=== PATIENT | male | born 1985 | race Caucasian/White ===

== ENCOUNTER 2022-01-22 14:47 | Outpatient (CLI) | payer OTHER, SELFPAY | END 2022-01-22 14:48 | disposition home or self-care (01) | LOC: SPT 14:53 | PROVIDERS: Visit Provider Podiatrist Foot & Ankle Surgery | DX: Z46.89 Encounter for fitting and adjustment of other specified devices (principal); M72.2 Plantar fascial fibromatosis; M21.41 Flat foot [pes planus] (acquired), right foot; M21.42 Flat foot [pes planus] (acquired), left foot | CPT/HCPCS: 97760; 99203; 99204; L4397 ==

== ENCOUNTER 2022-02-12 20:00 | Outpatient (CLI) | payer OTHER, SELFPAY | END 2022-02-12 20:01 | disposition home or self-care (01) | LOC: SLEEP 02-13 07:42 | PROVIDERS: PCP Family Medicine; Visit Provider Family Medicine | DX: R06.83 Snoring (principal); R53.83 Other fatigue; G47.33 Obstructive sleep apnea (adult) (pediatric) | CPT/HCPCS: 95810 ==

== ENCOUNTER → 2022-03-19 08:23 | Outpatient (BNVA) | payer OTHER, SELFPAY | PROVIDERS: PCP Family Medicine; Visit Provider Podiatrist Foot & Ankle Surgery | DX: M72.2 Plantar fascial fibromatosis (principal); M21.41 Flat foot [pes planus] (acquired), right foot; M21.42 Flat foot [pes planus] (acquired), left foot | CPT/HCPCS: 99213 ==

== ENCOUNTER 2022-03-26 20:00 | Outpatient (CLI) | payer OTHER, SELFPAY | END 2022-03-26 20:01 | disposition home or self-care (01) | LOC: SLEEP 03-27 04:46 | PROVIDERS: PCP Family Medicine; Visit Provider Family Medicine | DX: G47.33 Obstructive sleep apnea (adult) (pediatric) (principal) | CPT/HCPCS: 95811 ==

== ENCOUNTER → 2022-06-18 07:44 | Outpatient (BNVA) | payer OTHER, SELFPAY | PROVIDERS: PCP Family Medicine; Visit Provider Podiatrist Foot & Ankle Surgery | DX: M72.2 Plantar fascial fibromatosis (principal); M21.41 Flat foot [pes planus] (acquired), right foot; M21.42 Flat foot [pes planus] (acquired), left foot | CPT/HCPCS: 99213 ==

== ENCOUNTER 2022-08-23 09:15 | Emergency (ER) | payer OTHER, SELFPAY ==
[2022-08-23 09:30] VITALS: BP 129/89; PULSE 73; RESP 15; O2SAT 97; BMI 31.1
--- NOTE | 2022-08-23 09:44 | XR_ITS ---
WS: [id number] Left elbow, 3 views, 08/23/2022 Clinical Data: Left elbow pain and swelling Comparison: None. Findings: No fractures or dislocations are seen. The radial head is normal. The soft tissues are unremarkable. XR/XR elbow LT min 3V* [id number] Impression: Negative left elbow.
[2022-08-23 09:53] VITALS: BP 137/79; PULSE 69; O2SAT 97
--- NOTE | 2022-08-23 10:15 | US_ITS ---
WS: [id number] Ultrasound of the subcutaneous tissue of the left elbow, 08/23/2022 Clinical Data: tender, swollen Left elbow Comparison: None. Findings: There is subcutaneous fluid present. There is no fluid fluid level. There is no air within the tissue . The fluid is distributed irregularity throughout the subcutaneous tissue. US/US soft tissue/extremity [id number] Impression: Subcutaneous fluid in the left elbow, no abscess is seen.
--- NOTE | 2022-08-23 10:17 | ED_ITS ---
HPI - Extremity Problem General: Chief complaint: Extremity Problem,Nontraumatic Stated complaint: left elbow pain Time Seen by Provider: 08/23/22 09:16 History of Present Illness: Patient is a 37-year-old male comes to the ED with left elbow pain and swelling. Symptoms started last night. Denies any injury or trauma to cause left elbow pain. Patient also denies any overuse in the left elbow recently and denies any sporting activities such as tennis or golf. He rates his pain currently 7 out of 10. He has full range of motion in left elbow but does endorse some pain with range of motion. Associated symptoms: Deny chest pain, fever(s) or rash Review of Systems Const: Denies: fever(s), chills or fatigue Eyes: Denies: change in vision or eye discomfort ENMT: Denies: throat pain, odynophagia, nasal discharge or nasal congestion Card: Denies: chest pain, palpitations, edema, swelling of feet/ankles, dyspnea on exertion or orthopnea Resp: Denies: dyspnea, productive cough or non-productive cough GI: Denies: abdominal pain, nausea, vomiting, diarrhea, constipation or hematochezia : Denies: flank pain, difficulty urinating, dysuria or hematuria Musc: Reports: extremity pain (Left elbow) and extremity swelling (Left elbow); Denies: neck pain or back pain Skin/Breast: Denies: rash or new lesions Neuro: Denies: headache(s), numbness in extremities or weakness in extremities PFS ED PFSH: Medical History (Updated 08/23/22 @ 11:24 by JOSÉ Donato) No pertinent family history Surgical History (Updated 08/23/22 @ 11:24 by JOSÉ Donato) No pertinent past surgical history Social History Smoking and tobacco status: never smoked Physical Exam Const: COMMON NORMALS: no acute distress, patient oriented x3, healthy appearing and alert GENERAL APPEARANCE: cooperative and comfortable HENMT: COMMON NORMALS: normocephalic HEAD & SCALP: normocephalic MOUTH: Normal oral and palatal mucosa present THROAT: posterior oropharynx normal and uvula midline Neck/C-Spine: COMMON NORMALS: supple GENERAL: Yes normal visual inspection Resp: COMMON NORMALS: normal respiratory effort, No retractions, No use of accessory muscles and clear to auscultation bilaterally AUSCULTATION: clear to auscultation bilaterally Cardio: COMMON NORMALS: regular rate, regular rhythm, S1 normal heart sound present, S2 normal heart sound present, No gallops present (Cardio), No clicks present (Cardio), No murmurs present (Cardio) and Peripheral pulses 2+ throughout RATE: regular rate RHYTHM: regular rhythm HEART SOUNDS: S1 normal heart sound present and S2 normal heart sound present PERIPHERAL PULSES: Peripheral pulses 2+ throughout GI: COMMON NORMALS: Normal to inspection, nondistended, normoactive bowel sounds present, Soft to palpation, non-tender and no masses PALPATION: Yes Soft to palpation : COMMON NORMALS: Yes no CVA tenderness BLADDER/KIDNEY EXAM: Yes no CVA tenderness Back/Pelvis: COMMON NORMALS: no CVA tenderness Extremity: NARRATIVE EXTREMITY EXAM: Left elbow?no medial or lateral epicondylitis tenderness. Exam findings suggestive of possible cellulitis. No concern for septic joint at this time. LEFT UPPER EXTREMITY: Yes elbow joint Left elbow: Yes inspection (Swelling and mild erythema), Yes palpation (Tenderness over olecranon process), Yes ROM (Full range of motion) and Yes neurovascular exam (Intact) Neuro: COMMON NORMALS: patient oriented x3 SENSORIUM/ORIENTATION: Yes alert GAIT: Yes Normal gait present Skin: GENERAL SKIN EXAM: dry skin Course Vital Signs: Vital signs: Vital Signs Pulse Rate 69 08/23/22 11:19 Respiratory Rate 15 08/23/22 09:30 Blood Pressure 127/92 08/23/22 11:19 Pulse Oximetry 96 08/23/22 11:19 Oxygen Delivery Me thod Room Air 08/23/22 09:30 MDM - Extremity (Nontraumatic) Medical Decision Making Patient is a 37-year-old male comes to the ED with left elbow pain and swelling. Symptoms started last night. Denies any injury or trauma to cause left elbow pain. Patient also denies any overuse in the left elbow recently and denies any sporting activities such as tennis or golf. He rates his pain currently 7 out of 10. He has full range of motion in left elbow but does endorse some pain with range of motion.Left elbow?full range of motion. No medial or lateral epicondylitis tenderness. Exam findings suggestive of possible cellulitis. No concern for septic joint at this time. Left elbow x-ray was negative. Ultrasound soft tissue of left elbow showed some subcutaneous fluid in left elbow but no abscess seen. Given patient's exam and image findings he was diagnosed with cellulitis. He was given a dose of Toradol here in the ED and it did help with his pain. He was stable for discharge home and sent home with a prescription for an antibiotic. Told to follow-up with his PCP in the next week for reevaluation. Return to ED precautions given. Patient understood and agreed with plan. Lab Data Radiology Impressions Elbow X-Ray 08/23/22 09:44 Impression: Negative left elbow. Soft Tissue Ultrasound 08/23/22 10:15 Impression: Subcutaneous fluid in the left elbow, no abscess is seen. Imaging Data Xray Ortho: I personally reviewed and interpreted this imaging study as follows: My impression: Left elbow x-ray?no acute findings. Discharge Plan Discharge Patient Disposition: Home Clinical Impression: Cellulitis Qualifiers: Site of cellulitis: extremity Site of cellulitis of extremity: upper extremity Laterality: left Qualified Code(s): L03.114 - Cellulitis of left upper limb Condition: Stable Prescriptions: New cephalexin 500 mg capsule 500 mg PO Q6H 7 Days Qty: 28 0RF ibuprofen 800 mg tablet 800 mg PO Q8H PRN (Reason: pain) Qty: 20 0RF No Action cholecalciferol (vitamin D3) 50 mcg (2,000 unit) capsule 50 mcg PO DAILY diclofenac sodium [Arthritis Pain (diclofenac)] 1 % gel 4 g topical QID Rx Instructions: apply to single knee, ankle, foot; for foot includes sole/toes/top of foot ibuprofen [IBU] 800 mg tablet 800 mg PO Q8H lidocaine 5 % ointment 1 applic topical BID methyl salicylate-menthol 15-10 % cream 1 applic topical QID PRN trazodone 100 mg tablet 100 mg PO DAILY (DME) Night Splint See Rx Instructions .Route .MEDSUPPLY Qty: 1 0RF Rx Instructions: As directed (DME) Custom Molded Sport Low Profile Carbon Fiber Orthotics Full Length See Rx Instructions .Route .MEDSUPPLY Qty: 1 0RF Rx Instructions: As directed [facility] Discharge Orders: Discharge ED (Routine); Ordered 08/23/22 Ordered By: Rocco Bunn Referrals: Allyssa Pacheco MD [Primary Care Provider] - Discharge Diet: Regular Discharge Activity: Increase activity as tolerated Patient Instructions: Cellulitis (ED) Activity Restrictions/Additional Instructions: Follow-up with medical provider as directed in the next 5 to 7 days for reevaluation. Take medications as prescribed. Return to the ER or your medical provider if condition worsens. Please read and understand discharge instructions. Thank you for choosing [facility] for your healthcare needs today. Please realize this is an emergency room and that we are providing you with a medical screening exam and this may not be complete and all inclusive of all the testing and or work up that you may need to determine your ailment or severity of your illness. It is very important that you follow up as instructed or that you return to the Emergency Department should you have concerns or if your condition changes or worsens in any way. Coding Level of Care Code ED Osteopathic Resident for Duran Zambrano
[2022-08-23] MEDS: ketorolac 60 mg/2 mL INJ IM (10:20)
[2022-08-23 10:41] VITALS: BP 141/89; O2SAT 95
--- NOTE | 2022-08-23 10:41 | PC.PHAR ---
fax sent to [facility] for med list at 10:30 am
[2022-08-23 11:19] VITALS: BP 127/92; PULSE 69; O2SAT 96
== END 2022-08-23 11:21 | disposition home or self-care (01) ==
PROVIDERS: Emergency Provider Physician Assistant; PCP Family Medicine
DX: L03.114 Cellulitis of left upper limb (principal)
CPT/HCPCS: 73080; 76882; 96372; 99284; J1885

== ENCOUNTER → 2022-12-17 07:32 | Outpatient (BNVA) | payer OTHER, SELFPAY | PROVIDERS: PCP Family Medicine; Visit Provider Podiatrist Foot & Ankle Surgery | DX: M72.2 Plantar fascial fibromatosis (principal); M21.41 Flat foot [pes planus] (acquired), right foot; M21.42 Flat foot [pes planus] (acquired), left foot | CPT/HCPCS: 99213 ==

== ENCOUNTER → 2023-06-17 07:40 | Outpatient (BNVA) | payer OTHER, SELFPAY | PROVIDERS: PCP Family Medicine; Visit Provider Podiatrist Foot & Ankle Surgery | DX: M72.2 Plantar fascial fibromatosis (principal) | CPT/HCPCS: 99213 ==

== ENCOUNTER 2023-06-26 16:29 | Outpatient (CLI) | payer OTHER, SELFPAY ==
--- NOTE | 2023-06-26 16:45 | MR_ITS ---
WS: [id number] MRI RIGHT FOOT WITHOUT CONTRAST. COMPARISON: None Multiplanar, multisequence imaging is performed without contrast. History: RIGHT heel pain for 2 years. Evaluate for Boston's nerve entrapment. MRI is predominant dedicated to the ankle to better evaluate for Boston's nerve entrapment. There is no marrow signal abnormality. No fractures. Tarsometatarsal alignment is normal. No erosions . No significant enthesopathy at the Achilles attachment. No osteochondral lesions at the talar dome. No joint effusion and no loose body. There is no edema or evidence for atrophy or denervation involving the abductor digiti minimi. No berlin ma is identified within the muscles of the foot particularly along the lateral foot involving the dis tribution of the 1st branch of the lateral plantar nerve. There is no evidence for plantar fasciitis. No edema. The visualized Achilles tendon is normal. Normal appearance of the peroneus tendons. There is no muscle atrophy of the foot. No ligament tear. Extensor and flexor tendons are normal. IMPRESSION: 1. Unremarkable MRI RIGHT ankle/foot. There is no marrow edema or fracture. 2. No secondary findings of Boston nerve entrapment. There is no edema or denervation suspected with in the abductor digiti minimi. 3. No fractures.
== END 2023-06-26 16:30 | disposition home or self-care (01) ==
LOC: RAD 16:30
PROVIDERS: PCP Family Medicine; Visit Provider Podiatrist Foot & Ankle Surgery
DX: M72.2 Plantar fascial fibromatosis (principal)
CPT/HCPCS: 73718

== ENCOUNTER → 2023-07-15 07:41 | Outpatient (BNVA) | payer OTHER, SELFPAY | PROVIDERS: PCP Family Medicine; Visit Provider Podiatrist Foot & Ankle Surgery | DX: M72.2 Plantar fascial fibromatosis (principal); M79.671 Pain in right foot; M79.672 Pain in left foot | CPT/HCPCS: 99213 ==

== ENCOUNTER 2023-07-29 20:49 | Emergency (ER) | payer OTHER, SELFPAY ==
--- NOTE | 2023-07-29 20:51 | XRR_ITS ---
PROCEDURE INFORMATION: Exam: XR Left Hand Exam date and time: 07/29/2023 9:02 PM Age: 38 years old Clinical indication: Injury or trauma; Other: Laceration; Left; Index finger TECHNIQUE: Imaging protocol: Radiologic exam of the left hand. Views: 3 or more views. COMPARISON: No relevant prior studies available. FINDINGS: Bones/joints: Normal. Soft tissues: Soft tissue density around the volar aspect of the distal phalanx of the index finger, posttraumatic. XR/XR hand LT min 3V* [id number] IMPRESSION: No acute fracture or dislocation.
[2023-07-29 20:52] VITALS: BP 149/95; PULSE 77; RESP 16; TEMP 36.6; O2SAT 98
--- NOTE | 2023-07-29 21:12 | ED_ITS ---
HPI - Extremity Injury (Upper) General: Stated Complaint: left finger injury Time Seen by Provider: 07/29/23 20:56 Source: patient Mode of arrival: ambulatory Limitations: no limitations History of Present Illness: 38-year-old male states he had cut his l eft index finger while he was playing a fish with a fish knife states he has not been able to get it to stop from bleeding. He is up-to-date on his tetanus denies any pain denies any fevers Associated symptoms: Denies neck pain Review of Systems Const: Denies: fever(s), chills, body aches or change in appetite ENMT: Denies: throat pain or dental pain Card: Denies: chest pain Resp: Denies: dyspnea GI: Denies: abdominal pain, nausea, vomiting or diarrhea Musc: Reports: extremity pain; Denies: neck pain or back pain Skin/Breast: Denies: rash Neuro: Denies: headache(s) PFSH ED 2 PFSH: Medical History No pertinent family history Surgical History No pertinent past surgical history Social History Smoking and tobacco/nicotine status: never used tobacco/nicotine Physical Exam Const: COMMON NORMALS: no acute distress, patient oriented x3 and healthy appearing HENMT: COMMON NORMALS: normocephalic and atraumatic HEAD & SCALP: normocephalic and atraumatic Neck/C-Spine: COMMON NORMALS: full ROM Chest: COMMONS NORMALS: normal inspection of the chest Resp: COMMON NORMALS: normal respiratory effort Cardio: COMMON NORMALS: regular rate RATE: regular rate Extremity: COMMON NORMALS: full ROM NARRATIVE EXTREMITY EXAM: 1 cm long superficial laceration to dist al left index finger Neuro: COMMON NORMALS: patient oriented x3, moves all extremities and no focal motor deficits Psych: COMMON NORMALS: mental status grossly normal, Normal thought process present and cooperative THOUGHT PROCESS: Normal thought process present Skin: COMMON NORMALS: no rashes or lesions noted and no wounds GENERAL SKIN EXAM: no rashes or lesions noted Procedures Laceration Laceration 1: Site: hand Side (If applicable): left Size (cm): 1 Description: linear Depth: simple, single layer Pre-repair: wound explored, irrigated extensively and deep structures intact Skin layer closed with: other (dermabond) Course Vital Signs: Vital signs: Vital Signs Temperature 97.9 F 07/29/23 20:52 Pulse Rate 77 07/29/23 20:52 Respiratory Rate 16 07/29/23 20:52 Blood Pressure 149/95 07/29/23 20:52 Pulse Oximetry 98 07/29/23 20:52 Oxygen Delivery Me thod Room Air 07/29/23 20:52 MDM - Extremity Injury (Upper) Medical Decision Making Patient presents here with a laceration to the index finger did repair the laceration with Dermabond patient's stable for discharge follow-up with PCP return if worsening All radiology interpretation(s) finalized by discharge Discharge Plan Discharge Patient Disposition: Home Clinical Impression: Finger laceration Condition: Stable Prescriptions: No Action cholecalciferol (vitamin D3) 50 mcg (2,000 unit) capsule 50 mcg PO DAILY diclofenac sodium [Arthritis Pain (diclofenac)] 1 % gel 4 g topical QID Rx Instructions: apply to single knee, ankle, foot; for foot includes sole/toes/top of foot ibuprofen [IBU] 800 mg tablet 800 mg PO Q8H lidocaine 5 % ointment 1 applic topical BID methyl salicylate-menthol 15-10 % cream 1 applic topical QID PRN trazodone 100 mg tablet 100 mg PO DAILY (DME) Night Splint See Rx Instructions .Route .MEDSUPPLY Qty: 1 0RF Rx Instructions: As directed (DME) Custom Molded Sport Low Profile Orthotics Full Length See Rx Instructions .Route .MEDSUPPLY Qty: 1 0RF Rx Instructions: As directed [facility] [place] [place] Patients ibuprofen 800 mg tablet 800 mg PO Q8H PRN (Reason: pain) Qty: 20 0RF Discharge Orders: Discharge ED (Routine); Ordered 07/29/23 Ordered By: Mildred Parkinson Referrals: Allyssa Pacheco MD [Primary Care Provider] - Discharge Diet: Advance as tolerated Discharge Activity: Resume usual activity Patient Instructions: Finger Laceration (ED), Skin Adhesive Care (ED) Coding Level of Care Code ED Wardsperson for Duran Zambrano
== END 2023-07-29 21:16 | disposition home or self-care (01) ==
PROVIDERS: Emergency Provider Emergency Medicine; PCP Family Medicine
DX: S61.211A Laceration without foreign body of left index finger without damage to nail, initial encounter (principal); W26.0XXA Contact with knife, initial encounter
CPT/HCPCS: 12001; 73130; 99283

== ENCOUNTER → 2023-09-18 09:30 | Outpatient (BNVA) | payer OTHER, SELFPAY | PROVIDERS: PCP Family Medicine; Visit Provider Podiatrist Foot & Ankle Surgery | DX: M72.2 Plantar fascial fibromatosis (principal); M79.671 Pain in right foot; M79.672 Pain in left foot | CPT/HCPCS: 99213 ==

== ENCOUNTER → 2024-09-30 09:28 | Outpatient (BNVA) | payer OTHER, SELFPAY | PROVIDERS: PCP Family Medicine; Visit Provider Podiatrist Foot & Ankle Surgery | DX: M72.2 Plantar fascial fibromatosis (principal); M79.671 Pain in right foot; M79.672 Pain in left foot | CPT/HCPCS: 99213 ==

== ENCOUNTER 2024-10-23 21:55 | Emergency (ER) | payer OTHER, SELFPAY ==
--- OUTSIDE RECORDS SUMMARY | 2023-12-04 03:40 | XMS_ITS | Encounter Summary ---
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 This section includes the names of all active insurance providers for the patient. Insurance Provider Type of Coverage Plan Name Start of Policy Coverage End of Policy Coverage Group Number Member ID Insurance Provider's Telephone Number Policy Rivera's Name Patient's Relationship to Policy Rivera [facility] 2024 [facility] WNR May 31, 2024 SELECT [id number] TRUMANJOSEPH DE LA CRUZ Faustino PATIENT Selected Encounter This section includes the information on record at [place] for the Encounter. 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 Date/Time Primary/Secondary Diagnosis Diagnosis Name Provider Source Dec 04, 2023 04:29 PM PRIMARY Segmental and somatic dysfunction of cervical region JYOTSNA BLACKMON [facility] [place] [facility] Dec 04, 2023 04:29 PM SECONDARY Cervicalgia JYOTSNA BLACKMON [facility] Dec 04, 2023 04:29 PM SECONDARY Other intervertebral disc degeneration, lumbosacral region JYOTSNA BLACKMON [facility] Dec 04, 2023 04:29 PM SECONDARY Pain in thoracic spine JYOTSNA BLACKMON [facility] Dec 04, 2023 04:29 PM SECONDARY Segmental and somatic dysfunction of lumbar region [place] [place] Dec 04, 2023 04:29 PM SECONDARY Segmental and somatic dysfunction of pelvic region [place] [place] Dec 04, 2023 04:29 PM SECONDARY Segmental and somatic dysfunction of thoracic region JYOTSNA BLACKMON [facility] Plan of Treatment: Future Appointments (+ 6 months) and Future Tests (+/- 45 days) The Plan of Treatment section includes future care activities for the [facility] [place] [facility] This section includes future appointments and future orders which are active, pending or scheduled. Future Appointments This section includes appointments that were scheduled to occur 6 months from the date of the Encounter, up to a maximum of 20 appointments. The data comes from all [place] treatment facilities. Appointment Date/Time Appointment Type Appointme nt Facility Name Dec 11, 2023 01:00 PM AMBULATORY - MEDICINE [facility] Dec 25, 2023 08:40 AM AMBULATORY - MEDICINE [facility] 2024 10:40 AM AMBULATORY - MEDICINE [facility] Jan 20, 2024 09:15 AM AMBULATORY - MEDICINE [place] Jan 21, 2024 08:20 AM AMBULATORY - MEDICINE [facility] Feb 05, 2024 08:40 AM AMBULATORY - MEDICINE [facility] Feb 05, 2024 02:00 PM [facility] Feb 21, 2024 08:30 AM [facility]UL[facility]ORY - [facility]INE [facility] Feb 27, 2024 02:00 PM AMBULATORY - MEDICINE [facility] Mar 11, 2024 06:00 PM AMBULATORY - NONE [place] [facility] Mar 12, 2024 01:40 PM AMBULATORY - MEDICINE [facility] Apr 08, 2024 09:30 AM AMBULATORY - PSYCHIATRY [facility] Apr 23, 2024 08:20 AM AMBULATORY - MEDICINE [facility] May 14, 2024 08:20 AM AMBULATORY - [facility]ICINE [facility] May 28, 2024 02:30 PM AMBULATORY - MEDICINE [facility] Jun 04, 2024 08:20 AM AM[facility]ULATORY - MEDICINE [facility] Jun 04, 2024 03:00 PM AMBUL[facility]ORY - [facility]RY [facility] Active, Pending, and Scheduled Orders This section includes a listing of several types of active, pending, and scheduled orders, including clinic medications orders, diagnostic test orders, procedure orders and consult orders; where the start date of the order is 45 days before the date of the Encounter or 45 days after the date of theEncounter. The data comes from all [place] treatment facilities. Test Date/Time Test Type Test Details Facility Name Oct 23, 2023 12:00 AM Laboratory - Chemi stry Order TESTOSTERONE, TOTAL (PB-MA) GOLD/RED SST SERUM SP [facility] Vital Signs: All taken on the encounter date This section contains inpatient and outpatient Vital Signs collected on the date of the Encounter. Date/Time Temperature Pulse Blood Pressure Respiratory Rate SP02 Pain Height Weight Body Mass Index Source Dec 04, 2023 08:40 AM 98.9 72 133/89 [facility] Social History: Smoking Status (Most current) and Tobacco Use (All prior to encounter date) This section includes the most current, and the historical, smoking and tobacco- related health factors from the [place] facility where the Encounter took place. Current Smoking Status This section includes the most current smoking, or tobacco-related health factor, from the [place] facility where the Encounter took place. Date/Time Current Smoking Status Comment Facil ity Oct 23, 2023 10:00 AM NE-TOBACCO NEVER USED [facility] Tobacco Use History This section includes a history of the smoking, or tobacco-related health factors, that were collected on or before the date of the Encounter. The data comes from the [place] facility where the Encounter took place. Date/Time Smoking Status/Tobacco Use Comment F acility Oct 29, 2022 10:00 AM NE-TOBACCO NEVER USED [facility] Radiology Reports: +/- 30 days of the encounter Radiology Reports For cases when an order for radiology services may have been completed prior to the date of the Encounter, the report list includes the Radiology Reports that were completed up to 30 days before dateof the Encounter. For cases when an order for radiology services may have been completed after the date of the Encounter, the report list also includes the Radiology Reports that were completed up to30 days after date of the Encounter. The data comes from all [place] treatment facilities. Date/Time Radiology Report Provider Source Nov 07, 2023 09:53 AM US ABDOMEN LTD, SI NGLE ORG OR QUADRANT: SHARI SUAZO [id number] -[phone] M Exm Date: NOV 07, 2023@09:53 Req Phys: RENA ERNST Pat Loc: PB-SOHA PACT ECHO PCP (Req'g Lo Img Loc: PB-ULTRASOUND Service: Unknown [facility] [place]EL [id number] (Case [id number] COMPLETE) US ABDOMEN LTD, SINGLE ORG OR APOLONIA(US Detailed) CPT:53080 Reason for Study: Elevated liver enzymes Clinical History: Report Status: Verified Date Reported: NOV 07, 2023 Date Verified: NOV 07, 2023 Turkey Farmer E-Sig:/ES/BELLA DE DIOS Report: Right upper quadrant ultrasound Liver is enlarged measuring approximately 18.6 x 16.6 x 13.2 cm. There appears be fatty infiltration. Tail the pancreas is not adequately visualized. Body and head of the pancreas are essentially unremarkable. No evidence of cholelithiasis involving gallbladder. Common bile duct normal size measuring approximately 3.9 mm. Right kidney essentially unremarkable. Impression: 1. Hepatomegaly with fatty infiltration 2. Tail of the pancreas is not adequately visualized Primary Interpreting Staff: BELLA DE DIOS, RADIOLOGIST (Turkey Farmer) /BELLA Rivas [facility] Encounter Notes: All associated encounter notes This section contains the clinical notes associated to the Encounter. Date/Time Encounter Note(s) Provider Source Dec 04, 2023 04:15 PM CHIROPRACTIC NOTE: LOCAL TITLE: CHIROPRACTIC FOLLOW UP NOTE PB STANDARD TITLE: CHIROPRACTIC NOTE DATE OF NOTE: DEC 04, 2023@16:15 ENTRY DATE: DEC 04, 2023@16:16:02 AUTHOR: JYOTSNA BLACKMON COSIGNER: URGENCY: STATUS: COMPLETED CHIROPRACTIC FOLLOW-UP VISIT Patient's language preference for health information: Welsh Other Communication Methods Needed: SUBJECTIVE: The Goodridge is a 38 year old MALE being seen in the Chiropractic clinic for follow-up visit. 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 Today, the rates his pain level as a 4-6/10. PAST MEDICAL HISTORY: see problem list SOCIO-ECONOMIC HISTORY: Tobacco: No Prior Tobacco Use Status Available Alcohol: <10.0 mg/dL L (10/17/21 07:27) ALLERGIES/ADVERSE REACTIONS: No Allergy Assessment OBJECTIVE: CERVICAL SPINE: MOVEMENT/POSTURE: Upon inspection, observation is unremarkable. PALPATION: Tenderness was present at cervical segments C2 and C5. SEGMENTAL DYFUNCTION: Joint dysfunctions present upon evaluation C spine: C2 and C5. RANGE OF MOTION: AROM of the cervical spine was slightly restricted in all planes of motion. The experience pain with the restricted AROM. LUMBAR/THORACIC SPINE: MOVEMENT/POSTURE: The Goodridge ambulates without issue. SEGMENTAL DYSFUNCTION: Joint dysfunction was noted in the T spine: T2, T8, T10, L spine: L4, and in the right SI joint. PALPATION: The following vertebral spinous processes were tender to palpation: T2, T8, T10, L4, and the right PSIS. RANGE OF MOTION: AROM of the lumbar spine was restricted and painful in all planes of motion. REVIEW OF DIAGNOSTIC IMAGING: No data available ASSESSMENT: Cervical spine, thoracic spine, lumbar spine, and SI joint dysfunction with associated myofascial pain. PLAN: This is the second follow up treatment for the of a planned six treatments. With the gradual improvement, but continued neck and back pain, we will treat The Goodridge once every three weeks for six treatments. Prognosis: Good Today's treatment of the consisted of chiropractic spinal adjustment of the cervical spine (supine), thoracic spine (prone), lumbar spine (side posture), and the pelvis (side posture) using diversified technique. The procedure was well tolerated by the . GOALS: The goals of treatment include: 1) The reduction of symptomatology. 2) Instructing the in home exercises to improve cervical flexibility and strength, core strength, and lower extremity and core flexibility. 3) Helping the to understand the benefits of long-term continuation of the home exercise program and to commit to a lobsterman exercise plan. /adrián/ Jyotsna Blackmon [place] Signed: 12/04/2023 16:28 JYOTSNA BLACKMON
--- OUTSIDE RECORDS SUMMARY | 2023-12-11 08:00 | XMS_ITS | Encounter Summary ---
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 Date/Time Encounter Type Encounter Description Reason Provider Source Dec 11, 2023 01:00 PM THERAPEUTIC EXERCISES PHYSICAL THERAPY ICD-10-CM M25.561 Pain in right knee YUMIKO SEWELL [place] Encounter Template Text not used by [place] Assessments - Encounter Diagnoses This section includes the primary and secondary diagnoses documented for the Encounter. Date/Time Primary/Secondary Diagnosis Diagnosis Name Provider Source Dec 11, 2023 01:42 PM PRIMARY Pain in right knee KAL SEWELL [facility] Plan of Treatment: Future Appointments (+ 6 months) and Future Tests (+/- 45 days) The Plan of Treatment section includes future care activities for the patient from all [facility] treatment[facility]ilities. This section includes future appointments and future orders which are active, pending or scheduled. Future Appointments This section includes appointments that were scheduled to occur 6 months from the date of the Encounter, up to a maximum of 20 appointments. The data comes from all [place] treatment facilities. Appointment Date/Time Appointment Type Appointme nt Facility Name Dec 25, 2023 08:40 AM AMBULATORY - MEDICINE [facility] 2024 10:40 AM AMBULATORY - MEDICINE [facility] Jan 20, 2024 09:15 AM AMBULATORY - MEDICINE [place] [facility] Jan 21, 2024 08:20 AM AMBULATORY - MEDICINE [facility] Feb 05, 2024 08:40 AM AMBULATORY - MEDICINE [facility] Feb 05, 2024 02:00 PM [facility] [place] [facility] Feb 21, 2024 08:30 AM [facility] [facility] [place] [facility] Feb 27, 2024 02:00 PM AMBULATORY - MEDICINE [facility] Mar 11, 2024 06:00 PM AMBULATORY - NONE [place] [facility] Mar 12, 2024 01:40 PM AMBULATORY - MEDICINE [facility] Apr 08, 2024 09:30 AM AMBULATORY - PSYCHIATRY [facility] Apr 23, 2024 08:20 AM AMBULATORY - MEDICINE [facility] May 14, 2024 08:20 AM AMBULATORY - MEDICINE [facility] May 28, 2024 02:30 PM AMBULATORY - MEDICINE [facility] Jun 04, 2024 08:20 AM AMBULATORY - MEDICINE [facility] Jun 04, 2024 03:00 PM [facility]RY [facility] Social History: Smoking Status (Most current) and Tobacco Use (All prior to encounter date) This section includes the most current, and the historical, smoking and tobacco- related health factors from the [place] facility where the Encounter took place. Current Smoking Status This section includes the most current smoking, or tobacco-related health factor, from the [place] facility where the Encounter took place. Date/Time Current Smoking Status Comment [place] ity Oct 23, 2023 10:00 AM VA-TOBACCO NEVER USED [facility] Tobacco Use History This section includes a history of the smoking, or tobacco-related health factors, that were collected on or before the date of the Encounter. The data comes from the [place] facility where the Encounter took place. Date/Time Smoking Status/Tobacco Use Comment F acility Oct 29, 2022 10:00 AM VA-TOBACCO NEVER USED [facility] Encounter Notes: All associated encounter notes This section contains the clinical notes associated to the Encounter. Date/Time Encounter Note(s) Provider Source Dec 11, 2023 12:57 PM PHYSICAL THERAPY C ONSULT: LOCAL TITLE: PHYSICAL THERAPY CONSULTS PB STANDARD TITLE: PHYSICAL THERAPY CONSULT DATE OF NOTE: DEC 11, 2023@12:57 ENTRY DATE: DEC 11, 2023@12:57:43 AUTHOR: KAL SEWELL COSIGNER: URGENCY: STATUS: COMPLETED Diagnosis: Pain in right Knee Subjective Patient presents with right knee pain. Noted history of right ACL repair in 2007. He also report a right meniscectomy last year. Since his last knee surgery he reports that he reports fell down a flight of stairs reinjuring his knee. 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 Patient's chief complaint is right knee pain Pain rated currently as 2/10; At worst 6/10; At best 2/10 Location of pain is right knee Discomfort is described as dull and sharp Symptoms increase with ascending/descending stairs, standing and decrease with Tylenol, topical ointments Patient's goal is to get a knee brace Patient demonstrates good potential to reach goal Objective Lower Extremity Functional scale score 63% Examination Posture: Patient demonstrates Gait: right antalgic gait pattern Edema: -Midpatellar: 17 -6 above Midpatellar 22 -6 below Midpatellar 18 Upon palpation the patient tenderness is noted in distal quadriceps The following active ROM observed in degrees Knee extension Left WFL Right 0 Knee flexion Left WFL Right 110 The following manual muscle tests on scale of 5 hip abduction Left 5/5 Right 4/5 hip adduction Left 5/5 Right 4/5 hip flexion Left 5/5 Right 4/5 knee flexion Left 5/5 Right 4/5 knee extension Left 5/5 Right 4+/5 dorsiflexion Left 5/5 Right 5/5 Short sitting position used with knee flexion and hip adduction/abduction manual muscle tests. Special tests: Valgus stress: negative Varus stress: negative Anterior drawer: negative Posterior drawer: negative Alpesh's: negative Patellar grind: positive Patient Education: Patient was educated on precautions, expected outcomes, and a home exercise program. Sabinal goals were established and patient consents to the plan of care. Consult place to prosthetics for Right Functional ACL Knee Brace - Regular Contact [facility]: [phone] Home exercise program: Assisted heel slide 10x SLR 10x Prone hip extension 10x side lying hip abduction 10x side lying hip adduction 10x Assessment Patient presents with the above findings and is a good candidate for physical therapy services. The patient was instructed in a home program (demo and visual aide) and demonstrated understanding. The patient would benefit from skilled Physical Therapy to address pain, soft tissue mobility, lower extremity strength, lower extremity range of motion, functional mobility deficits, and ADls. Complexity is low with stable presentation. Plan Short term goals to be achieved in 3 weeks: 1) Patient will be (I) with home exercise. 2) Patient will decrease pain complaints by 25% or more within to improve ADL performance. 3) Patient will increase lower extremity strength by 1/2 grade or more overall within in order to decrease pain and improve ADLs. technician terminal and repeater goals to be achieved in 6 weeks: 1) Patient will have WNL bilateral knee ROM to decrease pain and improve functional mobility. 2) Patient will increase lower Extremity strength by +1 Manual Muscle Grade or more overall within 3 weeks. 3) Patient will be increase his lower Extremity Functional scale score to 71% for improved lower extremity function. (MCID 9 points) Treatment Plan: Physical Therapy plan of care: 1 follow-up appointment in 6 weeks. Physical therapy may include: Patient education, therapeutic exercise, therapeutic activities, manual therapy, neuromuscular reeducation, and modalities as indicated. Total Treatment Time: 30 minutes Therapeutic exercises: 10 minutes Visit 1 of 2 /adrián/ Kal Sewell PT, DPT Gerard Barnard [facility] Signed: 12/11/2023 13:43 [facility]LL [facility]
--- OUTSIDE RECORDS SUMMARY | 2023-12-25 03:40 | XMS_ITS | Encounter Summary ---
Author Name [facility] [place] [facility] [place] Address [address] [place] [address] Care Team Providers Care Dinker Name Role Phone YOMAIRA MULLEN Primary Care [...] Rivera's Name Patient's Relationship to Policy Rivera [facility] 2024 [facility] WNR May 31, 2024 [facility] [id number] [phone] TRUMANJOSEPH DE LA CRUZ Faustino PATIENT Selected Encounter This section includes the information on record at [place] for the Encounter. 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 Date/Time Primary/Secondary Diagnosis Diagnosis Name Provider Source Dec 25, 2023 09:02 AM PRIMARY Segmental and somatic dysfunction of cervical region JYOTSNA ROMANO DOWNEYFred [facility] Dec 25, 2023 09:02 AM SECONDARY Cervicalgia [place]NA ROMANOS [facility] Dec 25, 2023 09:02 AM SECONDARY Other intervertebral disc degeneration, lumbosacral region [place]ANO [facility] Dec 25, 2023 09:02 AM SECONDARY Pain in thoracic spine JYOTSNA ROMANO [facility] [place] Dec 25, 2023 09:02 AM SECONDARY Segmental and somatic dysfunction of lumbar region J[facility] ROMANO [facility] Dec 25, 2023 09:02 AM SECONDARY Segmental and somatic dysfunction of pelvic region JYOTSNA ROMANO [place] [facility] Dec 25, 2023 09:02 AM SECONDARY Segmental and somatic dysfunction of thoracic region JYOTSNA ROMANO [facility] Plan of Treatment: Future Appointments (+ 6 months) and Future Tests (+/- 45 days) The Plan of Treatment section includes future care activities for the patient from all [place] [facility]. This section includes future appointments and future orders which are active, pending or scheduled. Future Appointments This section includes appointments that were scheduled to occur 6 months from the date of the Encounter, up to a maximum of 20 appointments. The data comes from all [place] treatment facilities. Appointment Date/Time Appointment Type Appointme nt Facility Name 2024 10:40 AM AMBULATORY - MEDICINE [facility] Jan 20, 2024 09:15 AM [facility]ATORY - [place]ICINE [place] [facility] Jan 21, 2024 08:20 AM AMBULATORY - MEDICINE [facility] Feb 05, 2024 08:40 AM AMBULATORY - MEDICINE [facility] Feb 05, 2024 02:00 PM AMBULATORY - MEDICINE [facility] Feb 21, 2024 08:30 AM AMBULATORY - MEDICINE [facility] Feb 27, 2024 02:00 PM AMBULATORY - MEDICINE [facility] Mar 11, 2024 06:00 PM AMBULATORY - NONE [place] [facility] Mar 12, 2024 01:40 PM AMBULATORY - MEDICINE [facility] Apr 08, 2024 09:30 AM [facility] - [facility] Apr 23, 2024 08:20 AM AMBULATORY - MEDICINE [facility] May 14, 2024 08:20 AM AMBULATORY - MEDICINE [facility] May 28, 2024 02:30 PM AMBULATORY - MEDICINE [facility] Jun 04, 2024 08:20 AM [facility] Jun 04, 2024 03:00 PM [facility] - [facility]CHIATRY [facility] Lab Results: +/- 30 days of the encounter This section includes the Chemistry and Hematology Lab Results on record with VA for the patient. Radiology Reports and Pathology Reports are provided separately, in subsequent sections. Lab Results This section contains the Chemistry/Hematology Results that were resulted 30 days before or 30 daysafter the date of the Encounter. Date/Time Source Result Type Result - Unit Interpretation Reference Range Specimen Type Comment Jan 21, 2024 08:19 AM [facility] TESTOSTERONE, TOTAL (PB-[place]) SERUM Specimen Ty pe: SERUM No comment entered. Ordering Provider: RENA ERNST Report Released Date/Time: Jan 21, 2024 08:19 AM Reporting Lab: [place] [facility] [address] [place] [id number] Performing Lab: [place] [facility] [address] [place] [id number] TESTOSTERONE, TOTAL (PB-MA) 346.0 ng/dL 221.0-871.0 Vital Signs: All taken on the encounter date This section contains inpatient and outpatient Vital Signs collected on the date of the Encounter. Date/Time Temperature Pulse Blood Pressure Respiratory Rate SP02 Pain Height Weight Body Mass Index Source Dec 25, 2023 08:40 AM 98.2 81 135/85 [facility] Social History: Smoking Status (Most current) and Tobacco Use (All prior to encounter date) This section includes the most current, and the historical, smoking and tobacco- related health factors from the [place] facility where the Encounter took place. Current Smoking Status This section includes the most current smoking, or tobacco-related health factor, from the [place] facility where the Encounter took place. Date/Time Current Smoking Status Comment Facil ity Oct 23, 2023 10:00 AM [place]-TOBACCO NEVER USED [facility] Tobacco Use History This section includes a history of the smoking, or tobacco-related health factors, that were collected on or before the date of the Encounter. The data comes from the [place] facility where the Encounter took place. Date/Time Smoking Status/Tobacco Use Comment F acility Oct 29, 2022 10:00 AM [place]-TOBACCO NEVER USED [facility] Encounter Notes: All associated encounter notes This section contains the clinical notes associated to the Encounter. Date/Time Encounter Note(s) Provider Source Dec 25, 2023 08:54 AM CHIROPRACTIC NOTE: LOCAL TITLE: CHIROPRACTIC FOLLOW UP NOTE PB STANDARD TITLE: CHIROPRACTIC NOTE DATE OF NOTE: DEC 25, 2023@08:54 ENTRY DATE: DEC 25, 2023@08:54:55 AUTHOR: JYOTSNA ROMANO COSIGNER: URGENCY: STATUS: COMPLETED CHIROPRACTIC FOLLOW-UP VISIT Patient's language preference for health information: Danish Other Communication Methods Needed: SUBJECTIVE: The [place] is a 38 year old MALE being seen in the Chiropractic clinic for follow-up visit. The describes his neck and back as feeling similar to past appointments, with tension and tight through out. He states he has a new right knee brace, but is limping. Today, the rates his pain level as a 4/10. PAST MEDICAL HISTORY: see problem list SOCIO-ECONOMIC [...] the restricted AROM. LUMBAR/THORACIC SPINE: MOVEMENT/POSTURE: The [place] ambulates without issue. SEGMENTAL DYSFUNCTION: Joint dysfunction [...] associated myofascial pain. PLAN: This is the third follow up treatment for the of a planned six treatments. With the gradual improvement, but continued neck and back pain, we will treat The [place] once every three weeks for six treatments. [...] exercise program and to commit to a terminal gauger supervisor exercise plan. /adrián/ DARRYL [facility] Signed: 12/25/2023 09:01 JYOTSNA ROMANO
--- OUTSIDE RECORDS SUMMARY | 2024-01-14 05:40 | XMS_ITS | Encounter Summary ---
Author Name [facility] [place] Organization [facility] [place] Address [address] [place] [address] Care Team Providers Care Transformer Coil Winder Name Role Phone YOMAIRA MULLEN Primary Care [...] Rivera's Name Patient's Relationship to Policy Rivera [facility] 2024 [facility] WNR May 31, 2024 [facility] [id number] [phone] TRUMANJOSEPH DE LA CRUZ Faustino PATIENT Selected Encounter This section includes the information on record at [place] for the Encounter. 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 Date/Time Primary/Secondary Diagnosis Diagnosis Name Provider Source 2024 10:46 AM PRIMARY Segmental and somatic dysfunction of cervical region JYOTSNA ROMANO PENSACOLAFred [facility] 2024 10:46 AM SECONDARY Cervicalgia J[facility]NA [facility]ANO [facility] 2024 10:46 AM SECONDARY Other intervertebral disc degeneration, lumbosacral region [facility]ANO [facility] 2024 10:46 AM SECONDARY Pain in thoracic spine J[facility]ANO [facility] 2024 10:46 AM SECONDARY Segmental and somatic dysfunction of lumbar region [facility]AN[facility] 2024 10:46 AM SECONDARY Segmental and somatic dysfunction of pelvic region [facility] 2024 10:46 AM SECONDARY Segmental and somatic dysfunction of thoracic region JYOTSNA ROMANO [facility] Plan of Treatment: Future Appointments (+ 6 months) and Future Tests (+/- 45 days) The Plan of Treatment section includes future care activities for the patient [facility] [place] [facility] This section includes future appointments and future orders which are active, pending or scheduled. Future Appointments This section includes appointments that were scheduled to occur 6 months from the date of the Encounter, up to a maximum of 20 appointments. The data comes from all [place] treatment facilities. Appointment Date/Time Appointment Type Appointme nt Facility Name Jan 20, 2024 09:15 AM AMBULATORY - MEDICINE [place] [facility] Jan 21, 2024 08:20 AM AMBULATORY - MEDICINE [facility] Feb 05, 2024 08:40 AM AMBULATORY - MEDICINE [facility] Feb 05, 2024 02:00 PM AMBULATORY - MEDICINE [facility] Feb 21, 2024 08:30 AM AMBULATORY - MEDICINE [facility] Feb 27, 2024 02:00 PM AMBULATORY - MEDICINE [facility] Mar 11, 2024 06:00 PM AMBULATORY - NONE [place] [facility] Mar 12, 2024 01:40 PM AMBULATORY - MEDICINE [facility] Apr 08, 2024 09:30 AM [facility]ORY - PS[facility]IATRY [facility] Apr 23, 2024 08:20 AM [facility] [place]IC[place] [facility] May 14, 2024 08:20 AM AMBULATORY - MEDICINE [facility] May 28, 2024 02:30 PM AMBULATORY - MEDICINE [facility] Jun 04, 2024 08:20 AM AMBULATORY - MEDICINE [facility] Jun 04, 2024 03:00 PM [facility] Jun 25, 2024 09:20 AM AMBULATORY - MEDICINE [facility] Lab Results: +/- 30 days of the [...] Type Comment Jan 21, 2024 08:19 AM [facility] TESTOSTERONE, TOTAL (PB-[place]) SERUM Specimen Ty pe: SERUM No comment entered. Ordering Provider: RENA ERNST Report Released Date/Time: Jan 21, 2024 08:19 AM Reporting Lab: [place] [facility] [address] [place] [address] Performing Lab: [place] [facility] [address] [place] [address] TESTOSTERONE, TOTAL (PB-MA) 346.0 ng/dL 221.0-871.0 Vital Signs: All taken on the encounter date This section contains inpatient and outpatient Vital Signs collected on the date of the Encounter. Date/Time Temperature Pulse Blood Pressure Respiratory Rate SP02 Pain Height Weight Body Mass Index Source 2024 10:40 AM 98.3 73 133/84 [facility] Social History: Smoking Status (Most current) and Tobacco Use (All prior to encounter date) This section includes the most current, and the historical, smoking and tobacco- related health factors from the [place] facility where the Encounter took place. Current Smoking Status This section includes the most current smoking, or tobacco-related health factor, from the [place] facility where the Encounter took place. Date/Time Current Smoking Status Comment Facil ity Oct 23, 2023 10:00 AM [place]-TOBACCO NEVER USED [facility] Tobacco Use History This section includes a history of the smoking, or tobacco-related health factors, that were collected on or before the date of the Encounter. The data comes from the [place] facility where the Encounter took place. Date/Time Smoking Status/Tobacco Use Comment F acility Oct 29, 2022 10:00 AM [place]-TOBACCO NEVER USED [facility] Encounter Notes: All associated encounter notes This section contains the clinical notes associated to the Encounter. Date/Time Encounter Note(s) Provider Source 2024 10:38 AM CHIROPRACTIC NOTE: LOCAL TITLE: CHIROPRACTIC FOLLOW UP NOTE PB STANDARD TITLE: CHIROPRACTIC NOTE DATE OF NOTE: 2024@10:38 ENTRY DATE: 2024@10:38:46 AUTHOR: JYOTSNA ROMANO COSIGNER: URGENCY: STATUS: COMPLETED CHIROPRACTIC FOLLOW-UP VISIT Patient's language preference for health information: Korean Other Communication Methods Needed: SUBJECTIVE: The [place] is a 38 year old MALE being seen in the Chiropractic clinic for follow-up visit. The states his neck and back have felt worse for the past week with a sharp throbbing pain. Today, the rates his pain level as a 5/10. PAST MEDICAL HISTORY: see problem list SOCIO-ECONOMIC [...] restricted in all planes of motion. The [place] experience pain with the restricted AROM. LUMBAR/THORACIC SPINE: MOVEMENT/POSTURE: The [place] ambulates without issue. SEGMENTAL DYSFUNCTION: Joint dysfunction [...] associated myofascial pain. PLAN: This is the fourth follow up treatment for the of a planned six treatments. With the gradual improvement, but continued neck and back pain, we will treat The [place] once every three weeks for six treatments. [...] exercise program and to commit to a medical terminologist exercise plan. /adrián/ DARRYL [facility] Signed: 2024 10:45 JYOTSNA ROMANO
--- OUTSIDE RECORDS SUMMARY | 2024-02-05 03:40 | XMS_ITS | Encounter Summary ---
Author Name [facility] [place] Organization [facility] [place] Address [address] [place] [address] Care Team Providers Care Crane Engineer Name Role Phone YOMAIRA MULLEN Primary Care [...] Rivera's Name Patient's Relationship to Policy Rivera [facility] 2024 [facility] WNR May 31, 2024 [facility] [id number] [phone] TRUMANJOSEPH DE LA CRUZ Faustino PATIENT Selected Encounter This section includes the information on record at [place] for the Encounter. 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 Date/Time Primary/Secondary Diagnosis Diagnosis Name Provider Source Feb 05, 2024 08:53 AM PRIMARY Segmental and somatic dysfunction of cervical region JYOTSNA ROMANO CISNEFred [facility] Feb 05, 2024 08:53 AM SECONDARY Cervicalgia J[facility]ANO [facility] Feb 05, 2024 08:53 AM SECONDARY Intvrt disc disorders w radiculopathy, lumbosacral region J[facility]SNA ROMANO [facility] Feb 05, 2024 08:53 AM SECONDARY Pain in thoracic spine J[facility]SNA [facility]AN[facility] Feb 05, 2024 08:53 AM SECONDARY Segmental and somatic dysfunction of lumbar region [facility]AN[facility] Feb 05, 2024 08:53 AM SECONDARY Segmental and somatic dysfunction of pelvic region [facility]AN[facility] Feb 05, 2024 08:53 AM SECONDARY Segmental and somatic dysfunction of thoracic region JYOTSNA ROMANO [facility] Plan of Treatment: Future Appointments (+ 6 months) and Future Tests (+/- 45 days) The Plan of Treatment section includes future care activities for the patient from all [place] treatmentfacilities. This section includes future appointments and future orders which are active, pending or scheduled. Future Appointments This section includes appointments that were scheduled to occur 6 months from the date of the Encounter, up to a maximum of 20 appointments. The data comes from all [place] treatment facilities. Appointment Date/Time Appointment Type Appointme nt Facility Name Feb 21, 2024 08:30 AM AMBULATORY - MEDICINE [facility] Feb 27, 2024 02:00 PM AMBULATORY - MEDICINE [facility] Mar 11, 2024 06:00 PM AMBULATORY - NONE [place] [facility] Mar 12, 2024 01:40 PM AMBULATORY - MEDICINE [facility] Apr 08, 2024 09:30 AM AMBULATORY - PS[facility]CHIATRY [facility] Apr 23, 2024 08:20 AM AMBULATORY - MEDICINE [facility] May 14, 2024 08:20 AM AMBULATORY - MEDICINE [facility] May 28, 2024 02:30 PM AMBULATORY - MEDICINE [facility] Jun 04, 2024 08:20 AM AMBULATORY - MEDICINE [facility] Jun 04, 2024 03:00 PM AMBULATORY - PS[facility]CHIATRY [facility] Jun 25, 2024 09:20 AM AMBULATORY - MEDICINE [facility] Jul 15, 2024 01:00 PM AMBULATORY - MEDICINE [facility] Jul 30, 2024 09:00 AM AMBULATORY - MEDICINE [place] [facility] Lab Results: +/- 30 days of the encounter This section includes the Chemistry and Hematology Lab Results on record with [place] for the patient. Radiology Reports and Pathology Reports are provided separately, in subsequent sections. Lab Results This section contains the Chemistry/Hematology Results that were resulted 30 days before or 30 daysafter the date of the Encounter. Date/Time Source Result Type Result - Unit Interpretation Reference Range Specimen Type Comment Jan 21, 2024 08:19 AM [facility] TESTOSTERONE, TOTAL (PB-[place]) SERUM Specimen Ty pe: SERUM No comment entered. Ordering Provider: RENA ERNST Report Released Date/Time: Jan 21, 2024 08:19 AM Reporting Lab: [place] [facility] [address] [place] [facility] [id number] Performing Lab: [place] [facility] [address] [facility] [id number] TESTOSTERONE, TOTAL (PB-[place]) 346.0 ng/dL 221.0-871.0 Vital Signs: All taken on the encounter date This section contains inpatient and outpatient Vital Signs collected on the date of the Encounter. Date/Time Temperature Pulse Blood Pressure Respiratory Rate SP02 Pain Height Weight Body Mass Index Source Feb 05, 2024 08:40 AM 98.1 72 141/94 [facility] Social History: Smoking Status (Most current) and Tobacco Use (All prior to encounter date) This section includes the most current, and the historical, smoking and tobacco- related health factors from the [place] facility where the Encounter took place. Current Smoking Status This section includes the most current smoking, or tobacco-related health factor, from the [place] facility where the Encounter took place. Date/Time Current Smoking Status Comment Rosetta rollins Oct 23, 2023 10:00 AM [place]-TOBACCO NEVER USED [facility] Tobacco Use History This section includes a history of the smoking, or tobacco-related health factors, that were collected on or before the date of the Encounter. The data comes from the [place] facility where the Encounter took place. Date/Time Smoking Status/Tobacco Use Comment F vincenzo Oct 29, 2022 10:00 AM [place]-TOBACCO NEVER USED [facility] Encounter Notes: All associated encounter notes This section contains the clinical notes associated to the Encounter. Date/Time Encounter Note(s) Provider Source Feb 05, 2024 08:41 AM CHIROPRACTIC NOTE: LOCAL TITLE: CHIROPRACTIC FOLLOW UP NOTE PB STANDARD TITLE: CHIROPRACTIC NOTE DATE OF NOTE: FEB 05, 2024@08:41 ENTRY DATE: FEB 05, 2024@08:41:36 AUTHOR: JYOTSNA ROMANO COSIGNER: URGENCY: STATUS: COMPLETED CHIROPRACTIC FOLLOW-UP VISIT Patient's language preference for health information: Kinyarwanda Other Communication Methods Needed: SUBJECTIVE: The [place] is a 39 year old MALE being seen in the Chiropractic clinic for follow-up visit. The [place] describes his back and hips as very painful, like I've been hit by a truck . He does not recall any aggravating event. Today, the rates his pain level as a 6/10. PAST MEDICAL HISTORY: see problem list SOCIO-ECONOMIC [...] restricted in all planes of motion. The [place] experience pain with the restricted AROM. LUMBAR/THORACIC SPINE: MOVEMENT/POSTURE: The ambulates without issue. SEGMENTAL DYSFUNCTION: Joint dysfunction [...] associated myofascial pain. PLAN: This is the fifth follow up treatment for the of a planned six treatments. With the gradual improvement, but continued neck and back pain, we will treat The once every three weeks for six treatments. [...] exercise program and to commit to a skilled nursing exercise plan. /adrián/ DARRYL Bhandari [facility] Signed: 02/05/2024 08:52 JYOTSNA ROMANO
--- OUTSIDE RECORDS SUMMARY | 2024-02-05 09:00 | XMS_ITS | Encounter Summary ---
Author Name [facility] Address [address] [place] [address] Care Team Providers Care Pathology Tech Name Role Phone YOMAIRA MULLEN Primary Care [...] Rivera's Name Patient's Relationship to Policy Rivera [facility] 2024 [facility] May 31, 2024 [facility] [id number] [facility] Faustino PATIENT Selected Encounter This section includes the information on record at [facility] for the Encounter. Date/Time Encounter Type Encounter Description Reason Provider Source Feb 05, 2024 02:00 PM THERAPEUTIC EXERCISES PHYSICAL THERAPY ICD-10-CM M25.561 Pain in right knee YUMIKO SEWELL Christine Encounter Template Text not used by [facility] Assessments - Encounter Diagnoses This section includes the primary and secondary diagnoses documented for the Encounter. Date/Time Primary/Secondary Diagnosis Diagnosis Name Provider Source Feb 05, 2024 02:40 PM PRIMARY Pain in right knee KAL SEWELL [facility] Plan of Treatment: Future Appointments (+ [...] 20 appointments. The data comes from all [facility] treatment facilities. Appointment Date/Time Appointment Type Appointme nt Facility Name Feb 21, 2024 08:30 AM [facility] Feb 27, 2024 02:00 PM [facility] Mar 11, 2024 06:00 PM AM[facility]UL[facility]ORY - NONE [place] [facility] Mar 12, 2024 01:40 PM [facility] Apr 08, 2024 09:30 AM [facility] - [facility]ATRY [facility] Apr 23, 2024 08:20 AM [facility] May 14, 2024 08:20 AM [facility] May 28, 2024 02:30 PM [facility] Jun 04, 2024 08:20 AM [facility] Jun 04, 2024 03:00 PM [facility] Jun 25, 2024 09:20 AM [facility] Jul 15, 2024 01:00 PM [facility] Jul 30, 2024 09:00 AM [facility] - [place]IC[place] [facility] Lab Results: +/- 30 days of the encounter This section includes the Chemistry and Hematology Lab Results on record with [facility] for the patient. Radiology Reports and Pathology Reports are provided separately, in subsequent sections. Lab Results This section contains the Chemistry/Hematology Results that were resulted 30 days before or 30 daysafter the date of the Encounter. Date/Time Source Result Type Result - Unit Interpretation Reference Range Specimen Type Comment Jan 21, 2024 08:[address] [facility] TESTOSTERONE, TOTAL (PB-MA) SERUM Specimen Ty pe: SERUM No comment entered. Ordering Provider: RENA ERNST Report Released Date/Time: Jan 21, 2024 08:19 AM Reporting Lab: [place] [facility] [address] [place] [address] Performing Lab: [place] [facility] [address] [place] [address] TESTOSTERONE, TOTAL (PB-MA) 346.0 ng/dL 221.0-871.0 Vital Signs: All taken on the encounter date This section contains inpatient and outpatient Vital Signs collected on the date of the Encounter. Date/Time Temperature Pulse Blood Pressure Respiratory Rate SP02 Pain Height Weight Body Mass Index Source Feb 05, 2024 08:40 AM 98.1 72 141/94 [facility] Social History: Smoking Status (Most current) and Tobacco Use (All prior to encounter date) This section includes the most current, and the historical, smoking and tobacco- related health factors from the [facility] where the Encounter took place. Current Smoking Status This section includes the most current smoking, or tobacco-related health factor, from the [facility] facility where the Encounter took place. Date/Time Current Smoking Status Comment Facil ity Oct 23, 2023 10:00 AM ID-TOBACCO NEVER USED [facility] Tobacco Use History This section includes a history of the smoking, or tobacco-related health factors, that were collected on or before the date of the Encounter. The data comes from the [facility] where the Encounter took place. Date/Time Smoking Status/Tobacco Use Comment F acfunmi Oct 29, 2022 10:00 AM ID-TOBACCO NEVER USED [facility] Encounter Notes: All associated encounter notes This section contains the clinical notes associated to the Encounter. Date/Time Encounter Note(s) Provider Source Feb 05, 2024 01:55 PM PHYSICAL THERAPY N OTE: LOCAL TITLE: PHYSICAL THERAPY NOTE PB STANDARD TITLE: PHYSICAL THERAPY NOTE DATE OF NOTE: FEB 05, 2024@13:55 ENTRY DATE: FEB 05, 2024@13:55:22 AUTHOR: KAL SEWELL COSIGNER: URGENCY: STATUS: COMPLETED Diagnosis: Pain in right Knee Subjective Pt reports right knee pain rated 3/10 today prior to treatment. He reports that he received his knee brace, and that it has been working well for him. Objective Lower Extremity Functional scale score 61% Examination Gait: mild right antalgic gait pattern Edema: right mid patellar 17 Upon palpation the patient tenderness is noted in distal quadriceps The following active ROM observed in degrees Knee extension Left WFL Right 0 Knee flexion Left WFL Right 115(active),120(passive) The following manual muscle tests on scale of 5 hip abduction Left 5/5 Right 5/5 hip adduction Left 5/5 Right 5/5 hip flexion Left 5/5 Right 5/5 knee flexion Left 5/5 Right 5/5 knee extension Left 5/5 Right 5/5 dorsiflexion Left 5/5 Right 5/5 Short sitting position used with knee flexion and hip adduction/abduction manual muscle tests. Home exercise program: Assisted heel slide 10x3 SLR 10x3 Prone hip extension 10x3 side lying hip abduction 10x3 side lying hip adduction 10x3 incline SLR 30x seated hamstring curl 10x3 squat 20x mini lunge 20x Assessment demonstrate appropriate form for therapeutic exercises today. Noted crepitus during squats and lunges that decreased with controlled ROM and lateral patellar support. He is using his brace without issue. [place] is independent with HEP and now has a knee brace for support. was educated on an updated home exercise program to which he verbalized/demonstrated understanding. He is appropriate for discharge from physical therapy services at this time. Plan Discharge from physical therapy services and continue home exercise program. Short term goals to be achieved in 3 weeks: 1) Patient will be (I) with home exercise. -Progress: Met 2) Patient will decrease pain complaints by 25% or more within to improve ADL performance. -Progress: Not Met 3) Patient will increase lower extremity strength by 1/2 grade or more overall within in order to decrease pain and improve ADLs. -Progress: Met half-way goals to be achieved in 6 weeks: 1) Patient will have WNL bilateral knee ROM to decrease pain and improve functional mobility. -Progress: Met 2) Patient will increase lower Extremity strength by +1 Manual Muscle Grade or more overall within 3 weeks. -Progress: Met 3) Patient will be increase his lower Extremity Functional scale score to 71% for improved lower extremity function. (MCID 9 points) -Progress: Not Met Treatment Plan: Physical Therapy plan of care: 1 follow-up appointment in 6 weeks. Physical therapy may include: Patient education, therapeutic exercise, therapeutic activities, manual therapy, neuromuscular reeducation, and modalities as indicated. Total Treatment Time: 28 minutes Therapeutic exercises: 28 minutes Visit 2 of 2 /adrián/ Kal Sewell PT, DPT [place] JAYY Signed: 02/05/2024 14:42 KAL SEWELL [facility]
--- OUTSIDE RECORDS SUMMARY | 2024-02-21 03:30 | XMS_ITS | Encounter Summary ---
Author Name [facility] [place] [facility] [place] Address [address] [place] [address] Care Team Providers Care Chair Caner Name Role Phone YOMAIRA MULLEN Primary Care [...] Patient's Relationship to Policy Rivera [facility] 2024 [facility] May 31, 2024 [facility] [id number] [phone] LAKEISHAGAUTAMJordin Harmon PATIENT Selected Encounter This section includes the information on record at [place] for the Encounter. Date/Time Encounter Type Encounter Description Reason Provider Source Feb 21, 2024 08:30 AM OFFICE O/P EST LOW 20 MIN [facility] - IND ICD-10-CM F43.10 Post-traumatic stress disorder, unspecified [facility] Encounter Template Text not used by [place] Assessments - Encounter Diagnoses This section includes the primary and secondary diagnoses documented for the Encounter. Date/Time Primary/Secondary Diagnosis Diagnosis Name Provider Source Feb 21, 2024 08:43 AM PRIMARY Post-traumatic stress disorder, unspecified [facility] Feb 21, 2024 08:43 AM SECONDARY Major depressive disorder, recurrent, mild SCHAY,TU R [facility] Plan of Treatment: Future Appointments (+ 6 months) and Future Tests (+/- 45 days) The Plan of Treatment section includes future care activities for the patient [facility] This section includes future appointments and future orders which are active, pending or scheduled. Future Appointments This section includes appointments that were scheduled to occur 6 months from the date of the Encounter, up to a maximum of 20 appointments. The data comes from all [place] treatment facilities. Appointment Date/Time Appointment Type Appointme nt Facility Name Feb 27, 2024 02:00 PM AMBULATORY - MEDICINE [facility] Mar 11, 2024 06:00 PM AMBULATORY - NONE [facility] Mar 12, 2024 01:40 PM AMBULATORY - MEDICINE [facility] Apr 08, 2024 09:30 AM AMBULATORY - PSYCHIATRY [facility] Apr 23, 2024 08:20 AM AMBULATORY - MEDICINE [facility] May 14, 2024 08:20 AM AMBULATORY - MEDICINE [facility] May 28, 2024 02:30 PM AMBULATORY - MEDICINE [facility] Jun 04, 2024 08:20 AM AMBULATORY - MEDICINE [facility] Jun 04, 2024 03:00 PM AMBULATORY - PSYCHIATRY [facility] Jun 25, 2024 09:20 AM AMBULATORY - MEDICINE [facility] Jul 15, 2024 01:00 PM AMBULATORY - MEDICINE [facility] Jul 30, 2024 09:00 AM AMBULATORY - MEDICINE [facility] [facility] Aug 12, 2024 12:45 PM AMBULATORY - MEDICINE [facility] Aug 12, 2024 12:46 PM AMBULATORY - MEDICINE [facility] Aug 14, 2024 08:30 AM [facility] Vital Signs: All taken on the encounter date This section contains inpatient and outpatient Vital Signs collected on the date of the Encounter. Date/Time Temperature Pulse Blood Pressure Respiratory Rate SP02 Pain Height Weight Body Mass Index Source Feb 21, 2024 08:37 AM 98 80 112/74 20 97 5 72 259 35 [facility] Social History: Smoking Status (Most current) and Tobacco Use (All prior to encounter date) This section includes the most current, and the historical, smoking and tobacco- related health factors from the [place] facility where the Encounter took place. Current Smoking Status This section includes the most current smoking, or tobacco-related health factor, from the [place] facility where the Encounter took place. Date/Time Current Smoking Status Comment Rosetta rollins Oct 23, 2023 10:00 AM VA-TOBACCO NEVER USED [facility] Tobacco Use History This section includes a history of the smoking, or tobacco-related health factors, that were collected on or before the date of the Encounter. The data comes from the [place] facility where the Encounter took place. Date/Time Smoking Status/Tobacco Use Comment F vincenzo Oct 29, 2022 10:00 AM VA-TOBACCO NEVER USED [facility] Encounter Notes: All associated encounter notes This section contains the clinical notes associated to the Encounter. Date/Time Encounter Note(s) Provider Source Feb 21, 2024 08:46 AM MENTAL HEALTH CONS ULT: LOCAL TITLE: MENTAL HEALTH CONSULT NOTE STANDARD TITLE: MENTAL HEALTH CONSULT DATE OF NOTE: FEB 21, 2024@08:46 ENTRY DATE: FEB 21, 2024@08:46:48 AUTHOR: TU LYLESIGNER: URGENCY: STATUS: COMPLETED CC: better HPI: SHARI SUAZO is a 39-year-old man with a history of PTSD and MDD who presents for medication management follow up appointment after last appointment on 11/21/23 where he was continued on lexapro 10mg qam for mood and PTSD and restarted on amitriptyline prn insomnia. He reported compliance with meds with no side effects and good clinical effect. Patient denied any suicidal or homicidal ideation. Today patient reports that mood is better with no depression or anxiety symptoms except anxiety in social settings and anhedonia. Current stressors include chronic knee pain that he said would eventually require a replacement. Patient denied manic or psychotic symptoms or history. Patient denied any PTSD symptoms except occasional nightmares and anxiety in social settings. 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 2) Low Back Pain (SCT [id number]) 3) Neck Pain (SCT [id number]) 4) Posttraumatic stress disorder 5) Insomnia (SCT [id number]) 6) Vitamin D deficiency 7) Obstructive sleep apnea comment: CPAP 6-16cm 8) Chronic sinusitis 9) Osteoarthritis of right knee joint 10) Restless legs syndrome 11) Derangement of lateral meniscus comment: right knee 12) Hypotestosteronism 13) Steatosis of liver MEDICATIONS: reviewed Active and Recently Outpatient Medications (including Supplies): Active Outpatient Medications Status 1) AMITRIPTYLINE HCL 25MG TAB TAKE ONE TABLET BY MOUTH ACTIVE AT BEDTIME DIRECTED FOR SLEEP TAKE ONE-HALF TO ONE TABLET AT BEDTIME NEEDED . 2) CHOLECALCIF 50MCG (D3-2,000UNIT) TAB TAKE TWO TABLETS ACTIVE BY MOUTH ONCE A DAY FOR VITAMIN D DEFICIENCY. 3) ESCITALOPRAM OXALATE 20MG TAB TAKE ONE-HALF TABLET BY ACTIVE (S) MOUTH ONCE A DAY FOR DEPRESSION DOSE DECREASE 4) FLUTICASONE PROP 50MCG 120D NASAL INHL USE 1-2 SPRAYS ACTIVE (S) IN NOSTRIL(S) TWICE A DAY DIRECTED . USE WITH PATANSE (OLOPATADINE). (MUST BE USED DIRECTED FOR MINIMUM OF 21 DAYS TO PROVIDE ADEQUATE BENEFITS). 5) LIDOCAINE 5% OINT APPLY LIGHTLY TO AFFECTED AREA(S) ACTIVE TWICE A DAY 6) MELOXICAM 15MG TAB TAKE ONE TABLET BY MOUTH ONCE A ACTIVE DAY FOR OSTEOARTHRITIS 7) OLOPATADINE HCL 0.7% OPH SOLN INSTILL 1 DROP IN BOTH ACTIVE EYES ONCE A DAY FOR ALLERGIES 8) OLOPATADINE HCL 665MCG/SPRAY NASAL SPRAY USE 1-2 ACTIVE (S) SPRAYS INTO NOSTRIL(S) TWICE A DAY DIRECTED . USE WITH FLONASE. 9) ROPINIROLE HCL 4MG TAB TAKE ONE TABLET BY MOUTH AT ACTIVE (S) BEDTIME FOR RESTLESS LEG SYNDROME 10) SINUS RINSE NEILMED PKT USE 1 PACKET NOSTRIL(S) ONCE ACTIVE (S) A DAY FOR NASAL CONGESTION 11) TESTOSTERONE 1.62% 20.25MG/PUMP TOP GEL APPLY 2 PUMPS ACTIVE (S) (40.5MG) TO AFFECTED AREA(S) ONCE A DAY FOR LOW TESTOSTERONE APPLY TO CLEAN DRY SKIN OF UPPER ARMS OR UPPER SHOULDER ONLY Pending Outpatient Medications Status 1) AMITRIPTYLINE HCL 25MG TAB TAKE ONE TABLET BY MOUTH PENDING AT BEDTIME DIRECTED TAKE ONE-HALF TO ONE TABLET AT BEDTIME NEEDED . 2) ESCITALOPRAM OXALATE 20MG TAB TAKE ONE-HALF TABLET BY PENDING MOUTH ONCE A DAY DOSE DECREASE 3) HYDROXYZINE HCL 25MG TAB TAKE ONE TABLET BY MOUTH PENDING THREE TIMES A DAY NEEDED *MAY CAUSE DROWSINESS* Active Non-VA Medications Status 1) Non-VA CEPHALEXIN 500MG CAP 500MG BY MOUTH EVERY 6 ACTIVE HOURS 15 Total Medications I have reviewed current medications w/ at this visit. Medication list and allergy list has been updated. Efficacy and side effects of the medications were reviewed and the was provided a current medication list. denies questions, concerns, or problems with medications. O: reviewed Patient Weight History - Last Four 1. 259.0 lbs. / 117.5 kg. on FEB 21, 2024@08:37:53 2. 253.4 lbs. / 114.9 kg. on NOV 21, 2023@08:30 3. 255.5 lbs. / 115.9 kg. on OCT 23, 2023@10:09 4. 252.1 lbs. / 114.4 kg. on SEP 24, 2023@10:50 BMI: 35.2 Vitals (Per CPRS data): Temperature: 98 F [36.7 C] (02/21/2024 08:37) Blood Pressure: 112/74 (02/21/2024 08:37) Pulse: 80 (02/21/2024 08:37) Respirations: 20 (02/21/2024 08:37) MENTAL STATUS EXAM: Appearance and Behavior: The patient appears stated age. Attention to Hygiene: good Clothing: appropriate Eye Contact: good Level of Cooperation: good Speech: Rate: normal Volume: normal Articulation: good Spontaneity: normal Thought Processes: Rate of thoughts: normal Thought Content: normal Associations: intact Abnormal or Psychotic Thoughts: Auditory hallucinations: denies Visual hallucinations: denies Appearance of attention to internal stimuli: not present Overt evidence of delusions: not present Suicidal ideations: denies Homicidal ideations: denies Insight and Judgment: Insight: good Judgment: good Orientation: oriented to person, place, day, month, year, and situation Memory: Immediate Recall: intact Ickvm-yl-mgmv-minute recall: intact Attention and Concentration: good Language: Naming common objects: intact Repeating phrases: intact Fund of knowledge: Current events awareness: good Vocabulary: good Mood and Affect: Mood: better Affect: euthymic, restricted range Therapy provided in addition to e&m visit: Time spent in therapy: 16 minutes Total visit time: 23 minutes Modality: Supportive Psychotherapy Goals: Reduce overall frequency, intensity, and duration of the anxiety so that daily functioning is not impaired. Focus: Learn and implement coping skills that result in a reduction of anxiety and worry, and improved daily functioning. Recent labs: No COMPREHENSIVE METABOLIC PANEL data found No CBC EO data found No HGA1C data found No LIPID PANEL EO data found No TSH data found No URINALYSIS EO data found No URINE DRUG SCREEN EO data found Assessment: Patient is a 39yo man with MDD and PTSD that are well-controlled with current treatment plan with exception of social phobia and anxiety. His main stressor is knee pain. He agreed to a trial of hydroxyzine prn anxiety. He did not want to increase SSRI due to h/o sexual side effects. He was also agreeable to referral for therapy. Patient is a low acute and low chronic suicide risk based on risk assessment and can safely be managed on an outpatient basis. Diagnosis: PTSD MDD, recurrent, mild Plan: 1. Start hydroxyzine 25mg tid prn anxiety 2. Continue lexapro 10mg qam for mood and anxiety 3. Continue Amitriptyline prn insomnia 4. Refer for therapy 5. RTC 3 months Discussed risks, benefits, side effects. Patient expressed understanding and agreed to medication trial. We discussed alternatives to treatment, including no treatment, as well as risks, benefits, side effects. The patient/guardian understood and consented to treatment provided. INSTRUCTIONS GIVEN TO PATIENT/FAMILY: Report medication side effects promptly No alcohol/illicit drug use with medication Exercise caution with driving/use of machinery Monitor for sedation with use of the medication and if needed avoid use in situations where decreased level of alertness could potentially be dangerous Follow up with Primary Care Provider Provided orientation to the clinic and ways to access crisis/emergency care Contact crisis line for suicidal or homicidal thoughts. Emergency procedures were reviewed including 988,sucide prevention lifeline(1- [phone]). advised to return to ER or come in as walk-in to the clinic, should they experience any crisis. [place] had an opportunity to ask questions and agreed with the treatment plan. The was instructed to contact mental health (or primary care clinic) with any problems or concerns. /es/ TU Esparza [facility] Signed: 02/21/2024 08:54 [facility] Feb 21, 2024 08:44 AM PRIMARY CARE EDUCA TION NOTE: LOCAL TITLE: OPT PHY INSTR AUTO PB STANDARD TITLE: PRIMARY CARE EDUCATION NOTE DATE OF NOTE: FEB 21, 2024@08:44 ENTRY DATE: FEB 21, 2024@08:44:44 AUTHOR: TU LYLES EXP COSIGNER: URGENCY: STATUS: COMPLETED This documentation is related to: . F/U Visit Description of Today's Injury/Illness: MH MED MGMT Mental Health Testing: None RETURN TO CLINIC: Return appointment is needed. . Special Instructions: . None. MEDICATION REVIEW/ASSESSMENT & PLAN: 1. Start hydroxyzine 25mg tid prn anxiety 2. Continue lexapro 10mg qam for mood and anxiety 3. Continue Amitriptyline prn insomnia 4. Refer for therapy 5. RTC 3 months Active Outpatient Medications (including Supplies): Active Outpatient Medications Status 1) AMITRIPTYLINE HCL 25MG TAB TAKE ONE TABLET BY MOUTH ACTIVE AT BEDTIME DIRECTED FOR SLEEP TAKE ONE-HALF TO ONE TABLET AT BEDTIME NEEDED . 2) CHOLECALCIF 50MCG (D3-2,000UNIT) TAB TAKE TWO TABLETS ACTIVE BY MOUTH ONCE A DAY FOR VITAMIN D DEFICIENCY. 3) ESCITALOPRAM OXALATE 20MG TAB TAKE ONE-HALF TABLET BY ACTIVE (S) MOUTH ONCE A DAY FOR DEPRESSION DOSE DECREASE 4) FLUTICASONE PROP 50MCG 120D NASAL INHL USE 1-2 SPRAYS ACTIVE (S) IN NOSTRIL(S) TWICE A DAY DIRECTED . USE WITH PATANSE (OLOPATADINE). (MUST BE USED DIRECTED FOR MINIMUM OF 21 DAYS TO PROVIDE ADEQUATE BENEFITS). 5) LIDOCAINE 5% OINT APPLY LIGHTLY TO AFFECTED AREA(S) ACTIVE TWICE A DAY 6) MELOXICAM 15MG TAB TAKE ONE TABLET BY MOUTH ONCE A ACTIVE DAY FOR OSTEOARTHRITIS 7) OLOPATADINE HCL 0.7% OPH SOLN INSTILL 1 DROP IN BOTH ACTIVE EYES ONCE A DAY FOR ALLERGIES 8) OLOPATADINE HCL 665MCG/SPRAY NASAL SPRAY USE 1-2 ACTIVE (S) SPRAYS INTO NOSTRIL(S) TWICE A DAY DIRECTED . USE WITH FLONASE. 9) ROPINIROLE HCL 4MG TAB TAKE ONE TABLET BY MOUTH AT ACTIVE (S) BEDTIME FOR RESTLESS LEG SYNDROME 10) SINUS RINSE NEILMED PKT USE 1 PACKET NOSTRIL(S) ONCE ACTIVE (S) A DAY FOR NASAL CONGESTION 11) TESTOSTERONE 1.62% 20.25MG/PUMP TOP GEL APPLY 2 PUMPS ACTIVE (S) (40.5MG) TO AFFECTED AREA(S) ONCE A DAY FOR LOW TESTOSTERONE APPLY TO CLEAN DRY SKIN OF UPPER ARMS OR UPPER SHOULDER ONLY Pending Outpatient Medications Status 1) AMITRIPTYLINE HCL 25MG TAB TAKE ONE TABLET BY MOUTH PENDING AT BEDTIME DIRECTED TAKE ONE-HALF TO ONE TABLET AT BEDTIME NEEDED . 2) ESCITALOPRAM OXALATE 20MG TAB TAKE ONE-HALF TABLET BY PENDING MOUTH ONCE A DAY DOSE DECREASE 3) HYDROXYZINE HCL 25MG TAB TAKE ONE TABLET BY MOUTH PENDING THREE TIMES A DAY NEEDED *MAY CAUSE DROWSINESS* Active Non-VA Medications Status 1) Non-VA CEPHALEXIN 500MG CAP 500MG BY MOUTH EVERY 6 ACTIVE HOURS 15 Total Medications Medication reconciliation performed with confirmed /significant other and /significant other voiced an understandng of current medications? Yes [place]/significant other were provided an updated medication list. Following results reviewed and discussed with patient: None Future Appointments: 02/27/2024 14:00 PB-SOHA CHIRO 03/12/2024 13:40 PB-SOHA CHIRO 04/02/2024 09:20 PB-SOHA CHIRO 04/23/2024 08:20 PB-SOHA CHIRO 05/14/2024 08:20 PB-SOHA CHIRO 05/25/2024 09:00 PB-SOHA IND BH [facility] 06/04/2024 08:20 PB-SOHA CHIRO 06/25/2024 09:20 PB-SOHA CHIRO 10/12/2024 08:20 [facility] ( 10/19/2024 08:30 PB-SOHA PACT ECHO PCP /es/ TU Esparza [facility] Signed: 02/21/2024 08:46 [facility] Feb 21, 2024 08:25 AM NURSING PROGRESS N OTE: LOCAL TITLE: NURSING NOTE PB STANDARD TITLE: NURSING PROGRESS NOTE DATE OF NOTE: FEB 21, 2024@08:25 ENTRY DATE: FEB 21, 2024@08:25:53 AUTHOR: NAIN NUNEZ EXP COSIGNER: URGENCY: STATUS: COMPLETED is here for his scheduled F2F psychiatry appt. He is alert and oriented, resps even and unlabored, gait steady with a limp. States his back is hurting this morning. He adds he needs a right knee replacement, but he is too young to get one. [place] is pleasant and conversational. Pain Assessment: - PAIN ASSESSMENT: .. This patient's last pain assessment score was: 4 (11/21/2023 08:30). A detailed pain assessment showed the following: Pain characteristics (per patient's own words) Constant, Sharp, Aching Location of current pain Low Back, Other-right knee Onset/Duration of the current pain. Constant or variable? More than a year Patient's self-identified pain level: 5 Josselyn is escorted to room 112 for his appt with Dr Lyles. /adrián/ RONAL LOPEZ, RN [facility] Signed: 02/21/2024 08:37 NAIN NUNEZ [facility]
--- OUTSIDE RECORDS SUMMARY | 2024-02-27 09:00 | XMS_ITS | Encounter Summary ---
Author Name [facility] [facility] [place] Address [address] [place] [address] Care Team Providers Care Powertrain Calibration Engineer Name Role Phone YOMAIRA MULLEN Primary [...] Relationship to Policy Rivera [facility] 2024 [facility] WNR May 31, 2024 [facility] [id number] [phone] [facility] [place] PATIENT Selected Encounter This section includes the information on record at [place] for the Encounter. Date/Time Encounter Type Encounter Description Reason Provider Source Feb 27, 2024 02:00 PM CHIROPRACT MANJ 3-4 [facility] PATIENT ACCOUNT ANALYST ICD-10-CM M99.01 Segmental and somatic dysfunction of cervical region JYOTSNA ROMANO Encounter Template Text not used by [facility] Assessments - Encounter Diagnoses This section includes the primary and secondary diagnoses documented for the Encounter. Date/Time Primary/Secondary Diagnosis Diagnosis Name Provider Source Feb 27, 2024 02:06 PM PRIMARY Segmental and somatic dysfunction of cervical region [facility] Feb 27, 2024 02:06 PM SECONDARY Cervicalgia JYOTSNA ROMANO [facility] Feb 27, 2024 02:06 PM SECONDARY Intvrt disc disorders w radiculopathy, lumbosacral region J[facility]OTSNA ROMANO [facility] Feb 27, 2024 02:06 PM SECONDARY Pain in thoracic spine J[facility]NA ROMANO [facility] Feb 27, 2024 02:06 PM SECONDARY Segmental and somatic dysfunction of lumbar region J[facility]NA ROMANO [facility] Feb 27, 2024 02:06 PM SECONDARY Segmental and somatic dysfunction of pelvic region J[facility]NA ROMANO [facility] Feb 27, 2024 02:06 PM SECONDARY Segmental and somatic dysfunction of thoracic [facility] Plan of Treatment: Future Appointments (+ 6 months) and Future Tests (+/- 45 days) The Plan of Treatment section includes future care activities for the patient from all [place] treatmentfacilities. This section includes future appointments and future orders which are active, pending or scheduled. Future Appointments This section includes appointments that were scheduled to occur 6 months from the date of the Encounter, up to a maximum of 20 appointments. The data comes from all [place] treatment facilities. Appointment Date/Time Appointment Type Appointme nt Facility Name Mar 11, 2024 06:00 PM AMBULATORY - NONE [facility] Mar 12, 2024 01:40 PM AMBULATORY - MEDICINE [facility] Apr 08, 2024 09:30 AM AMBULATORY - PSYCHIATRY [facility] Apr 23, 2024 08:20 AM AMBULATORY - MEDICINE [facility] May 14, 2024 08:20 AM AMBULATORY - MEDICINE [facility] May 28, 2024 02:30 PM AMBULATORY - MEDICINE [facility] Jun 04, 2024 08:20 AM AMBULATORY - MEDICINE [facility] Jun 04, 2024 03:00 PM AMBULATORY - PS[facility]CHIATRY [facility] Jun 25, 2024 09:20 AM AMBULATORY - MEDICINE [facility] Jul 15, 2024 01:00 PM AMBULATORY - MEDICINE [facility] Jul 30, 2024 09:00 AM AMBULATORY - MEDICINE [place] AR JOSÉ LUIS [facility] Aug 12, 2024 12:45 PM AMBULATORY - MEDICINE [facility] Aug 12, 2024 12:46 PM AMBULATORY - MEDICINE [facility] Aug 14, 2024 08:30 AM [facility] August 26, 2024 11:30 AM AMBULATORY - MEDICINE POP[place] BOOGIE JOSÉ LUIS [facility] Vital Signs: All taken on the encounter date This section contains inpatient and outpatient Vital Signs collected on the date of the Encounter. Date/Time Temperature Pulse Blood Pressure Respiratory Rate SP02 Pain Height Weight Body Mass Index Source Feb 27, 2024 02:00 PM 98.1 66 144/94 [facility] Social History: Smoking Status (Most current) and Tobacco Use (All prior to encounter date) This section includes the most current, and the historical, smoking and tobacco- related health factors from the [place] facility where the Encounter took place. Current Smoking Status This section includes the most current smoking, or tobacco-related health factor, from the [place] facility where the Encounter took place. Date/Time Current Smoking Status Comment Facil ity Oct 23, 2023 10:00 AM ME-TOBACCO NEVER USED [facility] Tobacco Use History This section includes a history of the smoking, or tobacco-related health factors, that were collected on or before the date of the Encounter. The data comes from the [place] facility where the Encounter took place. Date/Time Smoking Status/Tobacco Use Comment F acility Oct 29, 2022 10:00 AM ME-TOBACCO NEVER USED [facility] Encounter Notes: All associated encounter notes This section contains the clinical notes associated to the Encounter. Date/Time Encounter Note(s) Provider Source Feb 27, 2024 01:43 PM CHIROPRACTIC NOTE: LOCAL TITLE: CHIROPRACTIC FOLLOW UP NOTE PB STANDARD TITLE: CHIROPRACTIC NOTE DATE OF NOTE: FEB 27, 2024@13:43 ENTRY DATE: FEB 27, 2024@13:43:19 AUTHOR: JYOTSNA ROMANO COSIGNER: URGENCY: STATUS: COMPLETED CHIROPRACTIC FOLLOW-UP VISIT Patient's language preference for health information: Tam[place] Other Communication Methods Needed: SUBJECTIVE: The [place] is a 39 year old MALE being seen in the Chiropractic clinic for follow-up visit. The [place] states his neck and back were killing him over the past weekend. He suspects his worsening right knee is aggravating his neck and back. [place] expresses interest in receiving massage therapy. Today, the rates his pain level as [...] restricted in all planes of motion. The [place] experience pain with the restricted AROM. LUMBAR/THORACIC [...] associated myofascial pain. PLAN: This is the final follow up treatment for the of a planned six treatments. With the gradual improvement, but continued neck and back pain, we will treat The once every three weeks for [address] order for massage therapy for the to receive in conjunction with chiropractic adjustment. Prognosis: Good Today's treatment of the consisted [...] exercise program and to commit to a intermediate card tender exercise plan. /adrián/ DARRYL [facility] Signed: 02/27/2024 14:05 JYOTSNA ROMANO
--- OUTSIDE RECORDS SUMMARY | 2024-03-12 08:40 | XMS_ITS | Encounter Summary ---
Author Name [facility] [place] [facility] [place] Address [address] [place] [address] Care Team Providers Care Dredge Engineer Name Role Phone YOMAIRA MULLEN Primary [...] Rivera's Name Patient's Relationship to Policy Rivera [facility] 2024 [facility] WNR May 31, 2024 [facility] [id number] [phone] TRUMANJOSEPH DE LA CRUZ Faustino PATIENT Selected Encounter This section includes the information on record at [place] for the Encounter. 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 Date/Time Primary/Secondary Diagnosis Diagnosis Name Provider Source Mar 12, 2024 01:52 PM PRIMARY Segmental and somatic dysfunction of cervical region [facility] Mar 12, 2024 01:52 PM SECONDARY Cervicalgia [place]NA [place]AN[place] [facility] Mar 12, 2024 01:52 PM SECONDARY Oth intvrt disc degen, lumbosacr rgn w discog bck pain only [place]AN[facility] Mar 12, 2024 01:52 PM SECONDARY Pain in thoracic spine JYOTSNA ROMANO [facility] Mar 12, 2024 01:52 PM SECONDARY Segmental and somatic dysfunction of lumbar region [place] [facility] Mar 12, 2024 01:52 PM SECONDARY Segmental and somatic dysfunction of pelvic region [place] Mar 12, 2024 01:52 PM SECONDARY Segmental and somatic dysfunction of thoracic region [facility] Plan of Treatment: Future Appointments (+ 6 months) and Future Tests (+/- 45 days) The Plan of Treatment section includes future care activities for the patient from all [place] [facility]. This section includes future appointments and future orders which are active, pending or scheduled. Future Appointments This section includes appointments that were scheduled to occur 6 months from the date of the Encounter, up to a maximum of 20 appointments. The data comes from all [place] treatment facilities. Appointment Date/Time Appointment Type Appointme nt Facility Name Apr 08, 2024 09:30 AM AMBULATORY - PS[facility]IATRY [facility] Apr 23, 2024 08:20 AM AMBULATORY - MEDICINE [facility] May 14, 2024 08:20 AM AMBULATORY - MEDICINE [facility] May 28, 2024 02:30 PM AMBULATORY - MEDICINE [facility] Jun 04, 2024 08:20 AM AMBULATORY - MEDICINE [facility] Jun 04, 2024 03:00 PM AMBULATORY - PS[facility]ATRY [facility] Jun 25, 2024 09:20 AM AMBULATORY - MEDICINE [facility] Jul 15, 2024 01:00 PM AMBULATORY - MEDICINE [facility] Jul 30, 2024 09:00 AM AM[facility]ULATORY - [facility]IC[place] [facility] Aug 12, 2024 12:45 PM [facility] [place] [facility] Aug 12, 2024 12:46 PM AMBULATORY - MEDICINE [facility] Aug 14, 2024 08:30 AM AMBULATORY - PS[facility]CH[facility]ATRY [facility] August 26, 2024 11:30 AM [facility] [place] [facility] August 27, 2024 11:00 AM AMBULATORY - MEDICINE [facility] August 28, 2024 09:00 AM AMBULATORY - MEDICINE [facility] Vital Signs: All taken on the encounter date This section contains inpatient and outpatient Vital Signs collected on the date of the Encounter. Date/Time Temperature Pulse Blood Pressure Respiratory Rate SP02 Pain Height Weight Body Mass Index Source Mar 12, 2024 01:40 PM 98.1 73 139/95 [facility] Social History: Smoking Status (Most current) and Tobacco Use (All prior to encounter date) This section includes the most current, and the historical, smoking and tobacco- related health factors from the [place] facility where the Encounter took place. Current Smoking Status This section includes the most current smoking, or tobacco-related health factor, from the [place] facility where the Encounter took place. Date/Time Current Smoking Status Comment Facil ity Oct 23, 2023 10:00 AM [place]-TOBACCO NEVER USED [facility] Tobacco Use History This section includes a history of the smoking, or tobacco-related health factors, that were collected on or before the date of the Encounter. The data comes from the [place] facility where the Encounter took place. Date/Time Smoking Status/Tobacco Use Comment F acility Oct 29, 2022 10:00 AM [place]-TOBACCO NEVER USED [facility] Encounter Notes: All associated encounter notes This section contains the clinical notes associated to the Encounter. Date/Time Encounter Note(s) Provider Source Mar 12, 2024 01:40 PM CHIROPRACTIC NOTE: LOCAL TITLE: CHIROPRACTIC FOLLOW UP NOTE PB STANDARD TITLE: CHIROPRACTIC NOTE DATE OF NOTE: MAR 12, 2024@13:40 ENTRY DATE: MAR 12, 2024@13:40:03 AUTHOR: JYOTSNA ROMANO COSIGNER: URGENCY: STATUS: COMPLETED CHIROPRACTIC FOLLOW-UP VISIT Patient's language preference for health information: Tongan Other Communication Methods Needed: SUBJECTIVE: The is a 39 year old MALE being seen in the Chiropractic clinic for follow-up visit. The [place] states he is scheduled for his first massage next week. He describes his back as killing him, but is uncertain what has caused his pain to flare up over the past few days. Today, the rates his pain level as [...] restricted in all planes of motion. The [place] experience pain with the restricted AROM. LUMBAR/THORACIC [...] associated myofascial pain. PLAN: This is the first follow up treatment for the of a planned six treatments. With the gradual improvement, but continued neck and back pain, we will treat The [place] once every three weeks for six treatments. [...] program and to commit to a intermediate exercise plan. /adrián/ DARRYL Bhandari [facility] Signed: 03/12/2024 13:51 JYOTSNA ROMANO
--- OUTSIDE RECORDS SUMMARY | 2024-04-23 03:20 | XMS_ITS | Encounter Summary ---
Author Name [facility] [place] [facility] [place] Address [address] [place] [address] Care Team Providers Care Merchandising Director Name Role Phone YOMAIRA MULELN Primary Care Provider Unavailabl e Insurance Providers: [...] Relationship to Policy Rivera [facility] 2024 [facility] WNR May 31, 2024 [facility] [id number] [phone] TRUMANJOSEPH DE LA CRUZ Faustino PATIENT Selected Encounter This section includes the information on record at [place] for the Encounter. Date/Time Encounter Type Encounter Description Reason Provider Source Apr 23, 2024 08:20 AM CHIROPRACT MANJ 3-4 [facility] INTERMISSION COORDINATOR ICD-10-CM M99.01 Segmental and somatic dysfunction of cervical region JYOTSNA ROMANO Encounter Template Text not used by [place] Assessments - Encounter Diagnoses This section includes the primary and secondary diagnoses documented for the Encounter. Date/Time Primary/Secondary Diagnosis Diagnosis Name Provider Source Apr 23, 2024 08:34 AM PRIMARY Segmental and somatic dysfunction of cervical region [facility] Apr 23, 2024 08:34 AM SECONDARY Cervicalgia JYOTSNA ROMANO [facility] Apr 23, 2024 08:34 AM SECONDARY Oth intvrt disc degen, lumbosacr w discog bck & lw extrm pn JYOTSNA ROMANO [place] [facility] Apr 23, 2024 08:34 AM SECONDARY Pain in thoracic spine JYOTSNA ROMANO [facility] Apr 23, 2024 08:34 AM SECONDARY Segmental and somatic dysfunction of lumbar region JYOTSNA ROMANO [facility] Apr 23, 2024 08:34 AM SECONDARY Segmental and somatic dysfunction of pelvic region JYOTSNA ROMANO [facility] Apr 23, 2024 08:34 AM SECONDARY Segmental and somatic dysfunction of thoracic region JYOTSNA ROMANO [facility] Plan of Treatment: Future Appointments (+ 6 months) and Future Tests (+/- 45 days) The Plan of Treatment section includes future care activities for the patient from all [place] [facility]. This section includes future appointments and future orders which are active, pending or scheduled. Future Appointments This section includes appointments that were scheduled to occur 6 months from the date of the Encounter, up to a maximum of 20 appointments. The data comes from all [place] treatment facilities. Appointment Date/Time Appointment Type Appointme nt Facility Name May 14, 2024 08:20 AM AMBULATORY - MEDICINE [facility] May 28, 2024 02:30 PM AMBULATORY - MEDICINE [facility] Jun 04, 2024 08:20 AM AMBULATORY - MEDICINE [facility] Jun 04, 2024 03:00 PM [facility]AT[facility]RY [facility] Jun 25, 2024 09:20 AM AMBULATORY - MEDICINE [facility] Jul 15, 2024 01:00 PM AMBULATORY - MEDICINE [facility] Jul 30, 2024 09:00 AM AMBULATORY - [facility]IC[facility] [place] [facility] Aug 12, 2024 12:45 PM AMBULATORY - MEDICINE [facility] Aug 12, 2024 12:46 PM AMBULATORY - MEDICINE [facility] Aug 14, 2024 08:30 AM [facility]ATORY - PS[facility]CHIATRY [facility] August 26, 2024 11:30 AM AMBULATORY - MEDICINE [place] [facility] August 27, 2024 11:00 AM AMBULATORY - MEDICINE [facility] August 28, 2024 09:00 AM AMBULATORY - MEDICINE [facility] September 16, 2024 10:15 AM AMBULATORY - MEDICINE [place] [facility] Sep 30, 2024 09:00 AM AMBULATORY - MEDICINE [facility] Oct 14, 2024 09:00 AM AMBULATORY - MEDICINE [facility] Vital Signs: All taken on the encounter date This section contains inpatient and outpatient Vital Signs collected on the date of the Encounter. Date/Time Temperature Pulse Blood Pressure Respiratory Rate SP02 Pain Height Weight Body Mass Index Source Apr 23, 2024 08:20 AM 98 79 124/86 [facility] Social History: Smoking Status (Most current) and Tobacco Use (All prior to encounter date) This section includes the most current, and the historical, smoking and tobacco- related health factors from the [place] facility where the Encounter took place. Current Smoking Status This section includes the most current smoking, or tobacco-related health factor, from the [facility] where the Encounter took place. Date/Time Current Smoking Status Comment [place] ity Oct 23, 2023 10:00 AM [place]-TOBACCO NEVER USED [facility] Tobacco Use History This section includes a history of the smoking, or tobacco-related health factors, that were collected on or before the date of the Encounter. The data comes from the [place] facility where the Encounter took place. Date/Time Smoking Status/Tobacco Use Comment F acfunmi Oct 29, 2022 10:00 AM [place]-TOBACCO NEVER USED [facility] Encounter Notes: All associated encounter notes This section contains the clinical notes associated to the Encounter. Date/Time Encounter Note(s) Provider Source Apr 23, 2024 08:26 AM CHIROPRACTIC NOTE: LOCAL TITLE: CHIROPRACTIC FOLLOW UP NOTE PB STANDARD TITLE: CHIROPRACTIC NOTE DATE OF NOTE: APR 23, 2024@08:26 ENTRY DATE: APR 23, 2024@08:26:59 AUTHOR: JYOTSNA ROMANO COSIGNER: URGENCY: STATUS: COMPLETED CHIROPRACTIC FOLLOW-UP VISIT Patient's language preference for health information: Wallisian Other Communication Methods Needed: SUBJECTIVE: The is a 39 year old MALE being seen in the Chiropractic clinic for follow-up visit. The describes his neck and back pain as somewhat increasing since his last treatment. Today, the rates his pain level as [...] restricted in all planes of motion. The [place] experience pain with the restricted AROM. LUMBAR/THORACIC [...] and back pain, we will treat The [place] once every three weeks for six treatments. [...] exercise program and to commit to a long-term exercise plan. /adrián/ DARRYL Bhandari [facility] Signed: 04/23/2024 08:33 JYOTSNA ROMANO [place] CHERYL
--- OUTSIDE RECORDS SUMMARY | 2024-05-14 03:20 | XMS_ITS | Encounter Summary ---
Author Name [facility] [place] [facility] [place] [facility] [place] Address [address] [place] [address] Care Team Providers Care Mold Making Supervisor Name Role Phone YOMAIRA MULLEN Primary Care [...] Rivera's Name Patient's Relationship to Policy Rivera [facility] 2024 [facility] WNR May 31, 2024 [facility] [phone] TRUMANJOSEPH DE LA CRUZ Faustino PATIENT Selected Encounter This section includes the information on record at [place] for the Encounter. Date/Time Encounter Type Encounter Description Reason Provider Source May 14, 2024 08:20 AM CHIROPRACT MANJ 3-4 [facility] SENIOR PAINTER ICD-10-CM M99.01 Segmental and somatic dysfunction of cervical region JYOTSNA BLACKMON Encounter Template Text not used by [place] Assessments - Encounter Diagnoses This section includes the primary and secondary diagnoses documented for the Encounter. Date/Time Primary/Secondary Diagnosis Diagnosis Name Provider Source May 14, 2024 08:28 AM PRIMARY Segmental and somatic dysfunction of cervical region [facility] May 14, 2024 08:28 AM SECONDARY Cervicalgia JYOTSNA BLACKMON [place] [facility] May 14, 2024 08:28 AM SECONDARY Oth intvrt disc degen, lumbosacr rgn w discog bck pain only [facility] BLACKMON [facility] May 14, 2024 08:28 AM SECONDARY Pain in thoracic spine JYOTSNA BLACKMON [facility] May 14, 2024 08:28 AM SECONDARY Segmental and somatic dysfunction of lumbar region J[facility]SNA BLACK[place] [facility] May 14, 2024 08:28 AM SECONDARY Segmental and somatic dysfunction of pelvic region J[facility] BLACK[place] [facility] May 14, 2024 08:28 AM SECONDARY Segmental and somatic dysfunction of thoracic region JYOTSNA BLACKMON [facility] Plan of Treatment: Future Appointments (+ 6 months) and Future Tests (+/- 45 days) The Plan of Treatment section includes future care activities for the patient from all [place] treatment[facility] healthities. This section includes future appointments and future orders which are active, pending or scheduled. Future Appointments This section includes appointments that were scheduled to occur 6 months from the date of the Encounter, up to a maximum of 20 appointments. The data comes from all [place] treatment facilities. Appointment Date/Time Appointment Type Appointme nt Facility Name May 28, 2024 02:30 PM AMBULATORY - MEDICINE [facility] Jun 04, 2024 08:20 AM AMBULATORY - MEDICINE [facility] Jun 04, 2024 03:00 PM AMBULATORY - PSYCHIATRY [facility] Jun 25, 2024 09:20 AM AMBULATORY - MEDICINE [facility] Jul 15, 2024 01:00 PM AMBULATORY - MEDICINE [facility] Jul 30, 2024 09:00 AM AMBULATORY - [facility]IC[facility] [place] [facility] Aug 12, 2024 12:45 PM AMBULATORY - MEDICINE [facility] Aug 12, 2024 12:46 PM AMBULATORY - MEDICINE [facility] Aug 14, 2024 08:30 AM [facility]ATRY [facility] August 26, 2024 11:30 AM AMBULATORY - [facility]IC[facility] [place] [facility] August 27, 2024 11:00 AM AMB[place] [facility] August 28, 2024 09:00 AM AMBULATORY - MEDICINE [facility] September 16, 2024 10:15 AM [facility] [place] [facility] Sep 30, 2024 09:00 AM AMBULATORY - MEDICINE [facility] Oct 14, 2024 09:00 AM AMBULATORY - MEDICINE [facility] Oct 29, 2024 02:00 PM AMBULATORY - PSYCHIATRY [facility] Nov 04, 2024 09:00 AM AMBULATORY - MEDICINE [facility] Nov 11, 2024 01:00 PM AMBULATORY - MEDICINE [facility] Vital Signs: All taken on the encounter date This section contains inpatient and outpatient Vital Signs collected on the date of the Encounter. Date/Time Temperature Pulse Blood Pressure Respiratory Rate SP02 Pain Height Weight Body Mass Index Source May 14, 2024 08:20 AM 98.2 77 145/88 [facility] Social History: Smoking Status (Most current) and Tobacco Use (All prior to encounter date) This section includes the most current, and the historical, smoking and tobacco- related health factors from the [place] facility where the Encounter took place. Current Smoking Status This section includes the most current smoking, or tobacco-related health factor, from the [place] facility where the Encounter took place. Date/Time Current Smoking Status Comment Facil ity Oct 23, 2023 10:00 AM [place]-TOBACCO NEVER USED [facility] Tobacco Use History This section includes a history of the smoking, or tobacco-related health factors, that were collected on or before the date of the Encounter. The data comes from the [place] facility where the Encounter took place. Date/Time Smoking Status/Tobacco Use Comment F acfunmi Oct 29, 2022 10:00 AM [place]-TOBACCO NEVER USED [facility] Encounter Notes: All associated encounter notes This section contains the clinical notes associated to the Encounter. Date/Time Encounter Note(s) Provider Source May 14, 2024 08:18 AM CHIROPRACTIC NOTE: LOCAL TITLE: CHIROPRACTIC FOLLOW UP NOTE PB STANDARD TITLE: CHIROPRACTIC NOTE DATE OF NOTE: MAY 14, 2024@08:18 ENTRY DATE: MAY 14, 2024@08:18:10 AUTHOR: JYOTSNA BLACKMON COSIGNER: URGENCY: STATUS: COMPLETED CHIROPRACTIC FOLLOW-UP VISIT Patient's language preference for health information: Bruneian Other Communication Methods Needed: SUBJECTIVE: The is a 39 year old MALE being seen in the Chiropractic clinic for follow-up visit. 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 He states his neck and left shoulder are very painful with decreased range of motion, while his lower back pain is similar to past appointments. Today, the rates his pain level as [...] restricted in all planes of motion. The [place] experience pain with the restricted AROM. LUMBAR/THORACIC [...] and back pain, we will treat The [place] once every three weeks for six treatments. 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 /adrián/ Jyotsna Blackmon [place] Signed: 05/14/2024 08:27 JYOTSNA BLACKMON
--- OUTSIDE RECORDS SUMMARY | 2024-05-28 09:30 | XMS_ITS | Encounter Summary ---
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 Date/Time Encounter Type Encounter Description Reason Provider Source May 28, 2024 02:30 PM OFFICE O/P EST MOD 30 MIN [facility] - IND ICD-10-CM F43.10 Post-traumatic stress disorder, unspecified [facility] Encounter Template Text not used by OR Assessments - Encounter Diagnoses This section includes the primary and secondary diagnoses documented for the Encounter. Date/Time Primary/Secondary Diagnosis Diagnosis Name Provider Source May 28, 2024 03:07 PM PRIMARY Post-traumatic stress disorder, unspecified [facility] May 28, 2024 03:07 PM SECONDARY Major depressive disorder, recurrent, in full remission TU LY[facility] Plan of Treatment: Future Appointments (+ 6 months) and Future Tests (+/- 45 days) The Plan of Treatment section includes future care activities for the [facility] This section includes future appointments and future orders which are active, pending or scheduled. Future Appointments This section includes appointments that were scheduled to occur 6 months from the date of the Encounter, up to a maximum of 20 appointments. The data comes from all OR treatment facilities. Appointment Date/Time Appointment Type Appointme nt Facility Name Jun 04, 2024 08:20 AM AMBULATORY - MEDICINE [facility] Jun 04, 2024 03:00 PM AMB[facility] - [facility]RY [facility] Jun 25, 2024 09:20 AM AMBULATORY - MEDICINE [facility] Jul 15, 2024 01:00 PM AMBULATORY - MEDICINE [facility] Jul 30, 2024 09:00 AM AM[facility]ULATORY - MEDIC[facility] Aug 12, 2024 12:45 PM [facility] [place] [facility] [facility] Aug 12, 2024 12:46 PM AMBULATORY - MEDICINE [facility] Aug 14, 2024 08:30 AM [facility] August 26, 2024 11:30 AM [facility]BULATORY - MEDIC[facility] August 27, 2024 11:00 AM [facility] [place] [facility] August 28, 2024 09:00 AM AMBULATORY - MEDICINE [facility] September 16, 2024 10:15 AM AMBULATORY - MEDICINE [place] Sep 30, 2024 09:00 AM [facility]IC[facility] [place] [facility] Oct 14, 2024 09:00 AM [facility] [place] [facility] Oct 29, 2024 02:00 PM AMBULATORY - PSYCHIATRY [facility] Nov 04, 2024 09:00 AM [facility] [place] [facility] Nov 11, 2024 01:00 PM [facility] [place] [facility] [facility] [facility] Nov 17, 2024 02:40 PM AMBULATORY - MEDICINE [facility] Vital Signs: All taken on the encounter date This section contains inpatient and outpatient Vital Signs collected on the date of the Encounter. Date/Time Temperature Pulse Blood Pressure Respiratory Rate SP02 Pain Height Weight Body Mass Index Source May 28, 2024 02:25 PM 124/81 [facility] May 28, 2024 02:18 PM 98.1 77 142/95 18 96 5 72 263.5 36 [facility] Social History: Smoking Status (Most current) and Tobacco Use (All prior to encounter date) This section includes the most current, and the historical, smoking and tobacco- related health factors from the OR facility where the Encounter took place. Current Smoking Status This section includes the most current smoking, or tobacco-related health factor, from the OR facility where the Encounter took place. Date/Time Current Smoking Status Comment Facil ity Oct 23, 2023 10:00 AM OR-TOBACCO NEVER USED [facility] Tobacco Use History This section includes a history of the smoking, or tobacco-related health factors, that were collected on or before the date of the Encounter. The data comes from the OR facility where the Encounter took place. Date/Time Smoking Status/Tobacco Use Comment F acility Oct 29, 2022 10:00 AM OR-TOBACCO NEVER USED [facility] Encounter Notes: All associated encounter notes This section contains the clinical notes associated to the Encounter. Date/Time Encounter Note(s) Provider Source May 28, 2024 04:32 PM ORTHOTICS PROSTHET ICS EDUCATION NOTE: LOCAL TITLE: NURSING PROSTHETIC ITEM PATIENT EDUCATION NOTE PB STANDARD TITLE: ORTHOTICS PROSTHETICS EDUCATION NOTE DATE OF NOTE: MAY 28, 2024@16:32 ENTRY DATE: MAY 28, 2024@16:32:25 AUTHOR: NAIN NUNEZ EXP COSIGNER: URGENCY: STATUS: COMPLETED Prosthetic Patient Education Learner: Patient Method: Individual Evaluation of Learning: Able to Perform/Verbalize Items: BP Monitor & Cuff 1. Sit comfortably with your left arm resting on a flat surface so that the center of your upper arm is at the same height as your heart. 2. Lay left arm on the table, palm up and thread cuff end through metal loop, smooth side against arm. Then position the tube off-center toward the inner side of arm in line with the finger. 3. Pull the end of the cuff to tighten it, fold back the extra material, and fasten securely. The cuff should be snug but not too tight. You should be able to insert two fingers between the cuff and your arm. 4. Confirm that the index points within the proper fit range. 5. Press the START button. As the cuff pressurizes, measurement will begin and the Cuff Inflation Meter will show on the display screen. It is normal for the cuff to feel very tight. 6. When the inflation is complete, the deflation starts automatically and the heart blinks, indicating that the measurement is in progress. Once the pulse is detected, the symbol flashes with each pulse beat. 7. When the measurement is complete, the systolic and diastolic pressure readings and pulse rate are displayed. The cuff deflates and the monitor automatically shuts off after 60 seconds, or you can turn it off by pressing the START button. 8. The reading is then stored into memory. 9. Remove cuff and make a note of your blood pressure and pulse rate. A copy of this document was provided to the patient. /adrián/ RONAL LOPEZ, RN [facility] Signed: 05/28/2024 16:34 NAIN NUNEZ [facility] May 28, 2024 04:28 PM ORTHOTICS PROSTHET ICS EDUCATION NOTE: LOCAL TITLE: NURSING PROSTHETIC ITEM PATIENT EDUCATION NOTE PB STANDARD TITLE: ORTHOTICS PROSTHETICS EDUCATION NOTE DATE OF NOTE: MAY 28, 2024@16:28 ENTRY DATE: MAY 28, 2024@16:29:25 AUTHOR: NAIN NUNEZ EXP COSIGNER: URGENCY: STATUS: COMPLETED Prosthetic Patient Education Learner: Patient Method: Individual Evaluation of Learning: Items: BP Monitor & Cuff 1. Sit comfortably with your left arm resting on a flat surface so that the center of your upper arm is at the same height as your heart. 2. Lay left arm on the table, palm up and thread cuff end through metal loop, smooth side against arm. Then position the tube off-center toward the inner side of arm in line with the finger. 3. Pull the end of the cuff to tighten it, fold back the extra material, and fasten securely. The cuff should be snug but not too tight. You should be able to insert two fingers between the cuff and your arm. 4. Confirm that the index points within the proper fit range. 5. Press the START button. As the cuff pressurizes, measurement will begin and the Cuff Inflation Meter will show on the display screen. It is normal for the cuff to feel very tight. 6. When the inflation is complete, the deflation starts automatically and the heart blinks, indicating that the measurement is in progress. Once the pulse is detected, the symbol flashes with each pulse beat. 7. When the measurement is complete, the systolic and diastolic pressure readings and pulse rate are displayed. The cuff deflates and the monitor automatically shuts off after 60 seconds, or you can turn it off by pressing the START button. 8. The reading is then stored into memory. 9. Remove cuff and make a note of your blood pressure and pulse rate. A copy of this document was provided to the patient. /adrián/ RONAL LOPEZ, RN [facility] Signed: 05/28/2024 16:30 NAIN NUNEZ [facility] May 28, 2024 03:12 PM PSYCHIATRY NOTE: LOCAL TITLE: PSYCHIATRIC PROGRESS NOTE PB STANDARD TITLE: PSYCHIATRY NOTE DATE OF NOTE: MAY 28, 2024@15:12 ENTRY DATE: MAY 28, 2024@15:13:34 AUTHOR: [facility] COSIGNER: URGENCY: STATUS: COMPLETED CC: good HPI: SHARI SUAZO is a 39-year-old man with a history of PTSD and MDD who presents for medication management follow up appointment after last appointment on 02/21/24 where he was continued on lexapro for mood and anxiety and amitriptyline for mood and sleep. He was started on vistaril 25mg tid as needed for anxiety. Patient reported compliance with meds with no side effects and good clinical effect. Patient denied any suicidal or homicidal ideation. Today patient reports that mood is good with no depression or anxiety symptoms. Patient denied manic or psychotic symptoms or history. Patient denied any PTSD symptoms except occasional NM's. Interval Social History changes: none ROS: neg. 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 2) Low Back Pain (SCT [id number]) 3) Neck Pain ([facility] [id number]) 4) Posttraumatic stress disorder 5) Insomnia ([facility] [id number]) 6) Vitamin D deficiency 7) Obstructive sleep apnea comment: CPAP 6-16cm 8) Chronic sinusitis 9) Osteoarthritis of right knee joint 10) Restless legs syndrome 11) Derangement of lateral meniscus comment: right knee 12) Hypotestosteronism 13) Steatosis of liver MEDICATIONS: reviewed Active and Recently Outpatient Medications (including Supplies): Active Outpatient Medications Status 1) AMITRIPTYLINE HCL 25MG TAB TAKE ONE TABLET BY MOUTH AT ACTIVE BEDTIME DIRECTED TAKE ONE-HALF TO ONE TABLET AT BEDTIME NEEDED . Indication: FOR SLEEP 2) ESCITALOPRAM OXALATE 20MG TAB TAKE ONE-HALF TABLET BY MOUTH ACTIVE (S) ONCE A DAY DOSE DECREASE Indication: FOR DEPRESSION 3) FLUTICASONE PROP 50MCG 120D NASAL INHL USE 1-2 SPRAYS IN ACTIVE NOSTRIL(S) TWICE A DAY DIRECTED . USE WITH PATANSE (OLOPATADINE). (MUST BE USED DIRECTED FOR MINIMUM OF 21 DAYS TO PROVIDE ADEQUATE BENEFITS). 4) HYDROXYZINE HCL 25MG TAB TAKE ONE TABLET BY MOUTH THREE ACTIVE (S) TIMES A DAY NEEDED *MAY CAUSE DROWSINESS* Indication: FOR ANXIETY 5) OLOPATADINE HCL 0.7% OPH SOLN INSTILL 1 DROP IN BOTH EYES ACTIVE ONCE A DAY FOR ALLERGIES 6) OLOPATADINE HCL 665MCG/SPRAY NASAL SPRAY USE 1-2 SPRAYS INTO ACTIVE (S) NOSTRIL(S) TWICE A DAY DIRECTED . USE WITH FLONASE. 7) ROPINIROLE HCL 4MG TAB TAKE ONE TABLET BY MOUTH AT BEDTIME ACTIVE (S) Indication: FOR RESTLESS LEG SYNDROME 8) SINUS RINSE NEILMED PKT USE 1 PACKET NOSTRIL(S) ONCE A DAY ACTIVE (S) Indication: FOR NASAL CONGESTION Pending Outpatient Medications Status 1) AMITRIPTYLINE HCL 25MG TAB TAKE ONE TABLET BY MOUTH AT PENDING BEDTIME DIRECTED TAKE ONE-HALF TO ONE TABLET AT BEDTIME NEEDED . Indication: FOR SLEEP 2) ESCITALOPRAM OXALATE 20MG TAB TAKE ONE-HALF TABLET BY MOUTH PENDING ONCE A DAY DOSE DECREASE Indication: FOR DEPRESSION 3) HYDROXYZINE HCL 25MG TAB TAKE ONE TABLET BY MOUTH THREE PENDING TIMES A DAY NEEDED *MAY CAUSE DROWSINESS* Indication: FOR ANXIETY Inactive Outpatient Medications Status 1) CHOLECALCIF 50MCG (D3-2,000UNIT) TAB TAKE TWO TABLETS BY MOUTH ONCE A DAY FOR VITAMIN D DEFICIENCY. 2) LIDOCAINE 5% OINT APPLY LIGHTLY TO AFFECTED AREA(S) TWICE A DAY 3) MELOXICAM 15MG TAB TAKE ONE TABLET BY MOUTH ONCE A DAY Indication: FOR OSTEOARTHRITIS 4) TESTOSTERONE 1.62% 20.25MG/PUMP TOP GEL APPLY 2 PUMPS (40.5MG) TO AFFECTED AREA(S) ONCE A DAY APPLY TO CLEAN DRY SKIN OF UPPER ARMS OR UPPER SHOULDER ONLY Indication: FOR LOW TESTOSTERONE Active Non-VA Medications Status 1) Non-VA CEPHALEXIN 500MG CAP 500MG BY MOUTH EVERY 6 HOURS ACTIVE Indication: FOR SKIN OR SOFT TISSUE INFECTION 16 Total Medications I have reviewed current medications w/ at this visit. Medication list and allergy list has been updated. Efficacy and side effects of the medications were reviewed and the was provided a current medication list. denies questions, concerns, or problems with medications. O: reviewed Patient Weight History - Last Four 1. 263.5 lbs. / 119.5 kg. on MAY 28, 2024@14:18 2. 259.0 lbs. / 117.5 kg. on FEB 21, 2024@08:37:53 3. 253.4 lbs. / 114.9 kg. on NOV 21, 2023@08:30 4. 255.5 lbs. / 115.9 kg. on OCT 23, 2023@10:09 BMI: 35.8 Vitals (Per CPRS data): Temperature: 98.1 F [36.7 C] (05/28/2024 14:18) Blood Pressure: 124/81 (05/28/2024 14:25) Pulse: 77 (05/28/2024 14:18) Respirations: 18 (05/28/2024 14:18) MENTAL STATUS EXAM: Appearance and Behavior: The [...] year, and situation Memory: Immediate Recall: intact Jyaji-lk-dbrk-minute recall: intact Attention and Concentration: good Language: Naming common objects: intact Repeating phrases: intact Fund of knowledge: Current events awareness: good Vocabulary: good Mood and Affect: Mood: Affect: euthymic, restricted range Therapy provided in addition to e&m visit: Time spent in therapy: 16 minutes Total visit time: 30 minutes Modality: Supportive Psychotherapy Goals: Reduce overall frequency, intensity, and duration of the anxiety so daily functioning is not impaired. Focus: Learn and implement coping skills that result in a reduction of anxiety and improved daily functioning. Recent labs: No COMPREHENSIVE METABOLIC PANEL data found No CBC EO data found No HGA1C data found No LIPID PANEL EO data found No TSH data found No URINALYSIS EO data found No URINE DRUG SCREEN EO data found Assessment: Patient is a 39yo man with PTSD and MDD that are well-controlled with current treatment plan. Patient is a low acute and low chronic suicide risk based on risk assessment and can safely be managed on an outpatient basis. Diagnosis: PTSD MDD Plan: 1. Continue medications 2. RTC 6 months Discussed risks, benefits, side effects. Patient [...] procedures were reviewed including 988,sucide prevention lifeline(1- [phone]). [employer] advised to return to ER or come in as walk-in to the clinic, should they experience any crisis. [employer] had an opportunity to ask questions and agreed with the treatment plan. The was instructed to contact mental health (or primary care clinic) with any problems or concerns. /es/ TU Esparza [facility] Signed: 05/28/2024 15:19 [facility]LES [facility] May 28, 2024 03:00 PM PRIMARY CARE EDUCA TION NOTE: LOCAL TITLE: OPT PHY INSTR AUTO PB STANDARD TITLE: PRIMARY CARE EDUCATION NOTE DATE OF NOTE: MAY 28, 2024@15:00 ENTRY DATE: MAY 28, 2024@15:08:23 AUTHOR: TU LYLES EXP COSIGNER: URGENCY: STATUS: COMPLETED This documentation is related to: . F/U Visit Description of Today's Injury/Illness: MH MED MGMT Mental Health Testing: None RETURN TO CLINIC: Return appointment is needed. . Special Instructions: . None. MEDICATION REVIEW/ASSESSMENT & PLAN: 1. Continue medications 2. RTC 6 months Active Outpatient Medications (including Supplies): Active Outpatient Medications Status 1) AMITRIPTYLINE HCL 25MG TAB TAKE ONE TABLET BY MOUTH AT ACTIVE BEDTIME DIRECTED TAKE ONE-HALF TO ONE TABLET AT BEDTIME NEEDED . Indication: FOR SLEEP 2) ESCITALOPRAM OXALATE 20MG TAB TAKE ONE-HALF TABLET BY MOUTH ACTIVE (S) ONCE A DAY DOSE DECREASE Indication: FOR DEPRESSION 3) FLUTICASONE PROP 50MCG 120D NASAL INHL USE 1-2 SPRAYS IN ACTIVE NOSTRIL(S) TWICE A DAY DIRECTED . USE WITH PATANSE (OLOPATADINE). (MUST BE USED DIRECTED FOR MINIMUM OF 21 DAYS TO PROVIDE ADEQUATE BENEFITS). 4) HYDROXYZINE HCL 25MG TAB TAKE ONE TABLET BY MOUTH THREE ACTIVE (S) TIMES A DAY NEEDED *MAY CAUSE DROWSINESS* Indication: FOR ANXIETY 5) OLOPATADINE HCL 0.7% OPH SOLN INSTILL 1 DROP IN BOTH EYES ACTIVE ONCE A DAY FOR ALLERGIES 6) OLOPATADINE HCL 665MCG/SPRAY NASAL SPRAY USE 1-2 SPRAYS INTO ACTIVE (S) NOSTRIL(S) TWICE A DAY DIRECTED . USE WITH FLONASE. 7) ROPINIROLE HCL 4MG TAB TAKE ONE TABLET BY MOUTH AT BEDTIME ACTIVE (S) Indication: FOR RESTLESS LEG SYNDROME 8) SINUS RINSE NEILMED PKT USE 1 PACKET NOSTRIL(S) ONCE A DAY ACTIVE (S) Indication: FOR NASAL CONGESTION Pending Outpatient Medications Status 1) AMITRIPTYLINE HCL 25MG TAB TAKE ONE TABLET BY MOUTH AT PENDING BEDTIME DIRECTED TAKE ONE-HALF TO ONE TABLET AT BEDTIME NEEDED . Indication: FOR SLEEP 2) ESCITALOPRAM OXALATE 20MG TAB TAKE ONE-HALF TABLET BY MOUTH PENDING ONCE A DAY DOSE DECREASE Indication: FOR DEPRESSION 3) HYDROXYZINE HCL 25MG TAB TAKE ONE TABLET BY MOUTH THREE PENDING TIMES A DAY NEEDED *MAY CAUSE DROWSINESS* Indication: FOR ANXIETY Active Non-VA Medications Status 1) Non-VA CEPHALEXIN 500MG CAP 500MG BY MOUTH EVERY 6 HOURS ACTIVE Indication: FOR SKIN OR SOFT TISSUE INFECTION 12 Total Medications Medication reconciliation performed with confirmed /significant other and /significant other voiced an understandng of current medications? Yes [employer]/significant other were provided an updated medication list. Following results reviewed and discussed with patient: None Future Appointments: 06/04/2024 08:20 [facility] 06/04/2024 15:00 [facility] IND SWS CRI 06/25/2024 09:20 [facility] 07/15/2024 13:00 [facility] 10/12/2024 08:20 [facility] ( 10/19/2024 08:30 PB-[facility] PACT ECHO PCP 11/26/2024 09:00 [facility] IND BH PSI GRIFFIN /adrián/ TU Esparza [facility] Signed: 05/28/2024 15:10 [facility] May 28, 2024 02:46 PM NURSING NOTE: LOCAL TITLE: [facility] NURSING EXIT NOTE PB STANDARD TITLE: NURSING NOTE DATE OF NOTE: MAY 28, 2024@14:46 ENTRY DATE: MAY 28, 2024@14:46:42 AUTHOR: NAIN NUNEZ EXP COSIGNER: URGENCY: STATUS: COMPLETED EXIT INTERVIEW Location: [facility] Ambulatory Appointment Reviewed: Instructions: CLINIC: Sent to Pharmacy for medications and instructions: Lab Instructions: Special Instructions: Verbalized understanding of today's visit: Patient Is patient's pain under control at time of exit? Yes Discussed walk-in and after-hour services. verbalized understanding. Encouraged to seek treatment if change in status. Contact information and hours of operation given. voiced no questions or concerns at this time and was escorted to the lobby in satisfactory condition, will schedule for his next appt. /adrián/ RONAL LOPEZ, RN [facility] Signed: 05/28/2024 14:49 [facility] N[facility]EZ [facility] May 28, 2024 02:17 PM NURSING PROGRESS N OTE: LOCAL TITLE: NURSING NOTE PB STANDARD TITLE: NURSING PROGRESS NOTE DATE OF NOTE: MAY 28, 2024@14:17 ENTRY DATE: MAY 28, 2024@14:17:26 AUTHOR: NAIN NUNEZ EXP COSIGNER: URGENCY: STATUS: COMPLETED Josselyn is here for his scheduled F2F psychiatry appt. He is alert and oriented, resp even and unlabored, gait steady. is pleasant and conversational. [employer] commented his bp has been running high lately. 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 Pain Assessment: - PAIN ASSESSMENT: .. This patient's last pain assessment score was: 5 (05/28/2024 14:18). A detailed pain assessment showed the following: Pain characteristics (per patient's own words) Constant, Sharp, Aching Location of current pain Low Back (achy), Neck, Other-right knee (sharp) he states he really needs a knee replacement, but is too young for that. Onset/Duration of the current pain. Constant or variable? More than a year Patient's self-identified pain level: 5 HTN Assess for Elevated BP>=140/90 - N,P,PH: Repeat blood pressure: 124/81 Will provide the with a bp machine, log with instructions and education. D/t the initial reading was elevated and he states it has been running high. was escorted to room 122 for his appt with Dr Lyles. /adrián/ RONAL LOPEZ, RN [facility] Signed: 05/28/2024 14:46 NAIN NUNEZ [facility]
--- OUTSIDE RECORDS SUMMARY | 2024-06-04 03:20 | XMS_ITS | Encounter Summary ---
Author Name [facility] [facility] [place] Address [address] [place] [address] Care Team Providers Care Principal Technologist Name Role Phone YOMAIRA MULLEN Primary Care Provider Unavailjulia gore Insurance Providers: All historical and current Section Date Range: From patient's date of to the date document was created. This section includes the names of all active insurance providers for the patient. Insurance Provider Type of Coverage Plan Name Start of Policy Coverage End of Policy Coverage Group Number Member ID Insurance Provider's Telephone Number Policy Rivera's Name Patient's Relationship to Policy Rivera [facility] 2024 [facility] WNR May 31, 2024 SELECT [id number] TRUMANJOSEPH DE LA CRUZ Faustino PATIENT Selected Encounter This section includes the information on record at [place] for the Encounter. Date/Time Encounter Type Encounter Description Reason Provider Source Jun 04, 2024 08:20 AM CHIROPRACT MANJ 3-4 [facility] HANSARD REPORTER ICD-10-CM M99.01 Segmental and somatic dysfunction of cervical region JYOTSNA BLACKMON Encounter Template Text not used by [place] Assessments - Encounter Diagnoses This section includes the primary and secondary diagnoses documented for the Encounter. Date/Time Primary/Secondary Diagnosis Diagnosis Name Provider Source Jun 04, 2024 08:24 AM PRIMARY Segmental and somatic dysfunction of cervical region JYOTSNA BLACKMON [facility] Jun 04, 2024 08:24 AM SECONDARY Cervicalgia JYOTSNA BLACKMON [facility] Jun 04, 2024 08:24 AM SECONDARY Oth intvrt disc degen, lumbosacr w discog bck & lw extrm pn JYOTSNA BLACKMON [facility] Jun 04, 2024 08:24 AM SECONDARY Pain in thoracic spine JYOTSNA BLACKMON [facility] Jun 04, 2024 08:24 AM SECONDARY Segmental and somatic dysfunction of lumbar region JYOTSNA BLACKMON [place] [facility] Jun 04, 2024 08:24 AM SECONDARY Segmental and somatic dysfunction of pelvic region JYOTSNA BLACKMON [facility] Jun 04, 2024 08:24 AM SECONDARY Segmental and somatic dysfunction of [facility] Plan of Treatment: Future Appointments (+ 6 months) and Future Tests (+/- 45 days) The Plan of Treatment section includes future care activities for the patient from all [place] [facility]. This section includes future appointments and future orders which are active, pending or scheduled. Future Appointments This section includes appointments that were scheduled to occur 6 months from the date of the Encounter, up to a maximum of 20 appointments. The data comes from all [place] treatment facilities. Appointment Date/Time Appointment Type Appointme nt Facility Name Jun 25, 2024 09:20 AM AMBULATORY - MEDICINE [facility] Jul 15, 2024 01:00 PM AMBULATORY - MEDICINE [facility] Jul 30, 2024 09:00 AM [facility]ORY - [facility]IC[facility] [place] [facility] Aug 12, 2024 12:45 PM AMBULATORY - [facility]ICINE [facility] Aug 12, 2024 12:46 PM AMBULATORY - MEDICINE [facility] Aug 14, 2024 08:30 AM AMBULATORY - PS[facility]CHIATRY [facility] August 26, 2024 11:30 AM AMBULATORY - [facility]IC[facility] [place] [facility] August 27, 2024 11:00 AM AMBULATORY - [facility]ICINE [facility] August 28, 2024 09:00 AM AMBULATORY - [facility]INE [facility] September 16, 2024 10:15 AM AMBULATORY - MEDICINE [place] [facility] Sep 30, 2024 09:00 AM AMBULATORY - [facility]ICINE [facility] Oct 14, 2024 09:00 AM AMBULATORY - MEDICINE [facility] Oct 29, 2024 02:00 PM AM[facility] Nov 04, 2024 09:00 AM AMBULATORY - [facility]ICINE [facility] Nov 11, 2024 01:00 PM AMBULATORY - MEDICINE [facility] Nov 17, 2024 02:40 PM AMBULATORY - MEDICINE [facility] Nov 26, 2024 09:00 AM AMBULATORY - [facility]ICINE [facility] Nov 26, 2024 09:40 AM AMBULATORY - MEDICINE [facility] Vital Signs: All taken on the encounter date This section contains inpatient and outpatient Vital Signs collected on the date of the Encounter. Date/Time Temperature Pulse Blood Pressure Respiratory Rate SP02 Pain Height Weight Body Mass Index Source Jun 04, 2024 08:20 AM 97.3 92 137/89 [facility] Social History: Smoking Status (Most current) and Tobacco Use (All prior to encounter date) This section includes the most current, and the historical, smoking and tobacco- related health factors from the [place] facility where the Encounter took place. Current Smoking Status This section includes the most current smoking, or tobacco-related health factor, from the [place] facility where the Encounter took place. Date/Time Current Smoking Status Comment Facil ity Oct 23, 2023 10:00 AM [place]-TOBACCO NEVER USED [facility] Tobacco Use History This section includes a history of the smoking, or tobacco-related health factors, that were collected on or before the date of the Encounter. The data comes from the [place] facility where the Encounter took place. Date/Time Smoking Status/Tobacco Use Comment F acfunmi Oct 29, 2022 10:00 AM [place]-TOBACCO NEVER USED [facility] Encounter Notes: All associated encounter notes This section contains the clinical notes associated to the Encounter. Date/Time Encounter Note(s) Provider Source Jun 04, 2024 08:17 AM CHIROPRACTIC NOTE: LOCAL TITLE: CHIROPRACTIC FOLLOW UP NOTE PB STANDARD TITLE: CHIROPRACTIC NOTE DATE OF NOTE: JUN 04, 2024@08:17 ENTRY DATE: JUN 04, 2024@08:18 AUTHOR: JYOTSNA BLACKMON COSIGNER: URGENCY: STATUS: COMPLETED CHIROPRACTIC FOLLOW-UP VISIT Patient's language preference for health information: Haitian Other Communication Methods Needed: SUBJECTIVE: The [place] is a 39 year old MALE being seen in the Chiropractic clinic for follow-up visit. The [place] states his neck and back are very sore, like I was hit by a dump truck , and very difficult to move. Today, the rates his pain level as a 4-5/10. PAST MEDICAL HISTORY: see problem list SOCIO-ECONOMIC [...] restricted in all planes of motion. The [place] experience pain with the restricted AROM. LUMBAR/THORACIC [...] exercise program and to commit to a senior living exercise plan. /adrián/ Jyotsna Blackmon [place] [facility] Signed: 06/04/2024 08:23 [facility]NA BLACKMON [facility]
--- OUTSIDE RECORDS SUMMARY | 2024-06-04 10:00 | XMS_ITS | Encounter Summary ---
Author Name [facility] [place] [facility] [place] Address [address] [place] [address] Care Team Providers Care Highway Construction Inspector Name Role Phone YOMAIRA MULLEN Primary Care [...] Rivera's Name Patient's Relationship to Policy Rivera [facility] [address] [facility] May 31, 2024 SELECT [id number] TRUMANJOSEPH DE LA CRUZ Faustino PATIENT Selected Encounter This section includes the information on record at [place] for the Encounter. Date/Time Encounter Type Encounter Description Reason Provider Source Jun 04, 2024 03:00 PM PSYTX W PT 60 MINUTES [facility] - IND ICD-10-CM F43.10 Post-traumatic stress disorder, unspecified DAYSI HERNANDEZ Christine Encounter Template Text not used by [place] Assessments - Encounter Diagnoses This section includes the primary and secondary diagnoses documented for the Encounter. Date/Time Primary/Secondary Diagnosis Diagnosis Name Provider Source Jun 04, 2024 04:00 PM PRIMARY Post-traumatic stress disorder, unspecified DAYSI HERNANDEZ [facility] Plan of Treatment: Future Appointments (+ 6 months) and Future Tests (+/- 45 days) The Plan of Treatment section includes future care activities for the patient from all [place] [facility]. This section includes future appointments and future orders which are active, pending or scheduled. Future Appointments This section includes appointments that were scheduled to occur 6 months from the date of the Encounter, up to a maximum of 20 appointments. The data comes from all [place] treatment facilities. Appointment Date/Time Appointment Type Appointme nt Facility Name Jun 25, 2024 09:20 AM [facility] [place] [facility] Jul 15, 2024 01:00 PM [facility]BULATORY - MEDICINE [facility] Jul 30, 2024 09:00 AM [facility] [place] [facility] Aug 12, 2024 12:45 PM [facility] [place] [facility] [place] [facility] Aug 12, 2024 12:46 PM [facility] [place] [facility] [place] [facility] Aug 14, 2024 08:30 AM [facility]BULATORY - PS[facility] August 26, 2024 11:30 AM AMBULATORY - [facility]IC[facility] [place] [facility] August 27, 2024 11:00 AM [facility] [place] [facility] [facility] August 28, 2024 09:00 AM AMBULATORY - MEDICINE [facility] September 16, 2024 10:15 AM [facility] [place] [facility] Sep 30, 2024 09:00 AM AMBULATORY - MEDICINE [facility] Oct 14, 2024 09:00 AM AMBULATORY - MEDICINE [facility] Oct 29, 2024 02:00 PM [facility] Nov 04, 2024 09:00 AM AMBULATORY - MEDICINE [facility] Nov 11, 2024 01:00 PM [facility] [place] [facility] Nov 17, 2024 02:40 PM [facility] [place] [facility] [place] [facility] Nov 26, 2024 09:00 AM [facility]BULATORY - MEDICINE [facility] Nov 26, 2024 09:40 AM AMBULATORY - MEDICINE [facility] Vital Signs: All taken on the encounter date This section contains inpatient and outpatient Vital Signs collected on the date of the Encounter. Date/Time Temperature Pulse Blood Pressure Respiratory Rate SP02 Pain Height Weight Body Mass Index Source Jun 04, 2024 08:20 AM 97.3 92 137/89 [facility] Social History: Smoking Status (Most current) and Tobacco Use (All prior to encounter date) This section includes the most current, and the historical, smoking and tobacco- related health factors from the [place] facility where the Encounter took place. Current Smoking Status This section includes the most current smoking, or tobacco-related health factor, from the [place] facility where the Encounter took place. Date/Time Current Smoking Status Comment [place] ity Oct 23, 2023 10:00 AM [place]-TOBACCO NEVER USED [facility] Tobacco Use History This section includes a history of the smoking, or tobacco-related health factors, that were collected on or before the date of the Encounter. The data comes from the [place] facility where the Encounter took place. Date/Time Smoking Status/Tobacco Use Comment F acfunmi Oct 29, 2022 10:00 AM [place]-TOBACCO NEVER USED [facility] Encounter Notes: All associated encounter notes This section contains the clinical notes associated to the Encounter. Date/Time Encounter Note(s) Provider Source Jun 04, 2024 03:52 PM SOCIAL WORK NOTE: LOCAL TITLE: SOCIAL WORK GENERAL NOTE PB STANDARD TITLE: SOCIAL WORK NOTE DATE OF NOTE: JUN 04, 2024@15:52 ENTRY DATE: JUN 04, 2024@15:53:03 AUTHOR: DAYSI HERNANDEZ EXP COSIGNER: URGENCY: STATUS: COMPLETED SOCIAL WORK GENERAL NOTE PB Has ADDENDA PATIENT: SHARI SUAZO GENDER: MALE AGE: 39 DATE OF : Dec Service Connected: Yes (90%) SNAP (Strengths, Needs, Abilities,Preferences) STRENGTHS Supportive family, Hope NEEDS Learn about my illness, Learn positive coping skills ABILITIES Listens to adults, Attends to activities of daily living (ADLs), Skills in reading, writing, Asks for help, Capacity to learn PREFERENCES Appointment times: None Specific Programs: EMDR Specific therapeutic Modalities: individual A therapist of same or opposite sex: Either; no preference Other: MEDICATION RECONCILIATION Have there been any changes to your medication? No If YES, how was the prescribing provider notified? PAIN Patient reports Pain of 3 or less. Pain description: General Intervention for Pain: VISIT DATE: May Relevant Changes in Mental Status: None reported MENTAL STATUS EVALUATION APPEARANCE Neat, Tall, Medium Build SPEECH Normal BEHAVIOR Appropriate, Cooperative MOOD Alright AFFECT Appropriate THOUGHT CONTENT/DELUSIONS Normal (Logical) HALLUCINATIONS Not evident SUICIDAL (POSITIVE RESPONSE TO ONE OF THESE REQUIRES SUICIDE RISK ASSESSMENT) Denied HOMICIDAL: Patient has exhibited these warning signs: Denied COGNITION Oriented to Person, Oriented to Place, Oriented to Time, Oriented to Purpose, Alert, Normal Concentration, Normal , Insight/Judgment, Normal Memory, Normal Intelligence, Normal Abstraction, Literate Relevant historical changes since last contact: None reported Intervention/Treatment Provided(required): Provided supportive and cognitive-based psychotherapy. Provider engaged in discussion on his trauma symptoms and need for individual psychotherapy. [place] reports he has periods of anger that sometimes come out of nowhere and does not know what sets them off. He states he has trauma related PTSD nightmares where he will play stool at night is on easy and unsure around other people does not like crowds is hypervigilant and will often be triggered or have flashbacks. Provider assessed veterans coping mechanisms reported he has been done as no one has taught him any. Provider discussed downloading and utilizing PTSD lean coach specifically the manage symptoms section so he can learn some coping mechanisms and discussed further resourcing with EMDR. We discussed some childhood issues with negative speaking that may have contributed to a negative belief early on and continued into and young adult life. PERTINENT THEMES DISCUSSED: Other: Trauma symptoms GOAL(S)ADDRESSED IN THIS SESSION (required): Report building, history taking, EMDR discussion No clinically significant SI/HI: Homicidal ideation/behavior present: Denies Child/elder abuse present: Denies PROGRESS OF SESSION OR THERAPY TO DATE (required): Minimal progress RECOMMENDATIONS/PLAN (required): Return to clinic order placed for individual psychotherapy sessions CHANGES IN TREATMENT PLAN: None CHANGES IN DIAGNOSIS: None DIAGNOSIS TREATED THIS VISIT: Posttraumatic stress disorder TIME SPENT WITH PATIENT: 53-60 minutes, Ind. Psychotherapy, [id number] _ /adrián/ DAYSI HERNANDEZ Signed: 06/04/2024 16:00 06/04/2024 ADDENDUM STATUS: COMPLETED Time spent with should read TIME SPENT WITH PATIENT: 55 minutes, Ind. Psychotherapy, [id number] /adrián/ DAYSI HERNANDEZ Signed: 06/04/2024 16:18 DAYSI HERNANDEZ [facility]
--- OUTSIDE RECORDS SUMMARY | 2024-06-25 04:20 | XMS_ITS | Encounter Summary ---
Author Name [facility] [place] [facility] [place] Organization [place] Address [address] [place] [address] Care Team Providers Care Field Test Engineer Name Role Phone YOMAIRA MULLEN Primary [...] Patient's Relationship to Policy Rivera [facility] 2024 [facility] WNR May 31, 2024 SELECT [id number] TRUMANJOSEPH DE LA CRUZ Faustino PATIENT Selected Encounter This section includes the information on record at [place] for the Encounter. Date/Time Encounter Type Encounter Description Reason Provider Source Jun 25, 2024 09:20 AM CHIROPRACT MANJ 3-4 [facility] DATA OPERATIONS DIRECTOR ICD-10-CM M99.01 Segmental and somatic dysfunction of cervical region JYOTSNA ROMANO Encounter Template Text not used by [place] Assessments - Encounter Diagnoses This section includes the primary and secondary diagnoses documented for the Encounter. Date/Time Primary/Secondary Diagnosis Diagnosis Name Provider Source Jun 25, 2024 09:30 AM PRIMARY Segmental and somatic dysfunction of cervical region [facility]OTSNA ROMANO [facility] [place] [facility] Jun 25, 2024 09:30 AM SECONDARY Cervicalgia JYOTSNA ROMANO [place] [facility] Jun 25, 2024 09:30 AM SECONDARY Oth intvrt disc degen, lumbosacr w discog bck & lw extrm pn JYOTSNA ROMANO [place] [facility] Jun 25, 2024 09:30 AM SECONDARY Pain in thoracic spine J[facility]SNA ROMANO [facility] Jun 25, 2024 09:30 AM SECONDARY Segmental and somatic dysfunction of lumbar region JYOTSNA ROMANO [place] [facility] Jun 25, 2024 09:30 AM SECONDARY Segmental and somatic dysfunction of pelvic region J[facility]SNA ROMANO [facility] Jun 25, 2024 09:30 AM SECONDARY Segmental and somatic dysfunction of thoracic region JYOTSNA ROMANO [place] [facility] Plan of Treatment: Future Appointments (+ 6 months) and Future Tests (+/- 45 days) The Plan of Treatment section includes future care activities for the patient from all [place] [facility]. This section includes future appointments and future orders which are active, pending or scheduled. Future Appointments This section includes appointments that were scheduled to occur 6 months from the date of the Encounter, up to a maximum of 20 appointments. The data comes from all [place] treatment facilities. Appointment Date/Time Appointment Type Appointme nt Facility Name Jul 15, 2024 01:00 PM AMBULATORY - MEDICINE [facility] Jul 30, 2024 09:00 AM AMBULATORY - [facility]ICINE [place] [facility] Aug 12, 2024 12:45 PM AMBULATORY - MEDICINE [facility] Aug 12, 2024 12:46 PM AMBULATORY - MEDICINE [facility] Aug 14, 2024 08:30 AM AMBULATORY - PS[facility]RY [facility] August 26, 2024 11:30 AM AMBULATORY - [facility]ICINE [place] [facility] August 27, 2024 11:00 AM AMBULATORY - MEDICINE [facility] August 28, 2024 09:00 AM AMBULATORY - MEDICINE [facility] September 16, 2024 10:15 AM [facility] [place] [facility] Sep 30, 2024 09:00 AM AMBULATORY - MEDICINE [facility] Oct 14, 2024 09:00 AM AMBULATORY - MEDICINE [facility] Oct 29, 2024 02:00 PM AMB[facility]ORY - PS[facility]RY [facility] Nov 04, 2024 09:00 AM AMBULATORY - MEDICINE [facility] Nov 11, 2024 01:00 PM [facility] [facility] Nov 17, 2024 02:40 PM [facility] [facility] Nov 26, 2024 09:00 AM [facility] [place] [facility] [facility] Nov 26, 2024 09:40 AM [facility] [place] [facility] Dec 08, 2024 01:40 PM [facility] [place] [facility] Dec 17, 2024 09:00 AM AMBULATORY - MEDICINE [facility] Vital Signs: All taken on the encounter date This section contains inpatient and outpatient Vital Signs collected on the date of the Encounter. Date/Time Temperature Pulse Blood Pressure Respiratory Rate SP02 Pain Height Weight Body Mass Index Source Jun 25, 2024 09:20 AM 98.1 80 140/91 [facility] Social History: Smoking Status (Most current) and Tobacco Use (All prior to encounter date) This section includes the most current, and the historical, smoking and tobacco- related health factors from the [place] facility where the Encounter took place. Current Smoking Status This section includes the most current smoking, or tobacco-related health factor, from the [place] facility where the Encounter took place. Date/Time Current Smoking Status Comment Facil ity Oct 23, 2023 10:00 AM [place]-TOBACCO NEVER USED [facility] Tobacco Use History This section includes a history of the smoking, or tobacco-related health factors, that were collected on or before the date of the Encounter. The data comes from the [place] facility where the Encounter took place. Date/Time Smoking Status/Tobacco Use Comment F acility Oct 29, 2022 10:00 AM [place]-TOBACCO NEVER USED [facility] Encounter Notes: All associated encounter notes This section contains the clinical notes associated to the Encounter. Date/Time Encounter Note(s) Provider Source Jun 25, 2024 09:18 AM CHIROPRACTIC NOTE: LOCAL TITLE: CHIROPRACTIC FOLLOW UP NOTE PB STANDARD TITLE: CHIROPRACTIC NOTE DATE OF NOTE: JUN 25, 2024@09:18 ENTRY DATE: JUN 25, 2024@09:18:47 AUTHOR: JYOTSNA ROMANO COSIGNER: URGENCY: STATUS: COMPLETED CHIROPRACTIC FOLLOW-UP VISIT Patient's language preference for health information: Serbian Other Communication Methods Needed: SUBJECTIVE: The [place] is a 39 year old MALE being seen in the Chiropractic clinic for follow-up visit. The describes his neck as not right and killing him with pain, while his back is tight and sore. He attributes some of the increased pain to working on his 's car and the ongoing right knee issue. Today, the rates his pain level as [...] the restricted AROM. LUMBAR/THORACIC SPINE: MOVEMENT/POSTURE: The [place] ambulates without issue. SEGMENTAL DYSFUNCTION: Joint dysfunction [...] program and to commit to a terminal manager exercise plan. /adrián/ [facility] Signed: 06/25/2024 09:29 JYOTSNA ROMANO [facility]
--- OUTSIDE RECORDS SUMMARY | 2024-07-15 08:00 | XMS_ITS | Encounter Summary ---
Author Name [facility] [facility] [place] Address [address] [place] [address] Care Team Providers Care Web Application Dev Specialist Name Role Phone YOMAIRA MULLEN Primary Care [...] Rivera's Name Patient's Relationship to Policy Rivera [facility] [address] [facility] WNR May 31, 2024 SELECT [phone] [facility] [place] [facility] Faustino PATIENT Selected Encounter This section includes the information on record at [place] for the Encounter. Date/Time Encounter Type Encounter Description Reason Provider Source Jul 15, 2024 01:00 PM CHIROPRACT MANJ 3-4 [employer] ICD-10-CM M99.01 Segmental and somatic dysfunction of cervical region JYOTSNA ROMANO Encounter Template Text not used by [facility] Assessments - Encounter Diagnoses This section includes the primary and secondary diagnoses documented for the Encounter. Date/Time Primary/Secondary Diagnosis Diagnosis Name Provider Source Jul 15, 2024 01:12 PM PRIMARY Segmental and somatic dysfunction of cervical region JYOTSNA ROMANO [facility] Jul 15, 2024 01:12 PM SECONDARY Cervicalgia [facility]AN[facility] [place] [facility] Jul 15, 2024 01:12 PM SECONDARY Oth intvrt disc degen, lumbosacr w discog bck & lw extrm pn [facility] [place] [facility] Jul 15, 2024 01:12 PM SECONDARY Pain in thoracic spine [facility] Jul 15, 2024 01:12 PM SECONDARY Segmental and somatic dysfunction of lumbar region [facility] [place] [facility] Jul 15, 2024 01:12 PM SECONDARY Segmental and somatic dysfunction of pelvic region [facility] Jul 15, 2024 01:12 PM SECONDARY Segmental and somatic dysfunction of thoracic region [facility] Plan of Treatment: Future Appointments (+ 6 months) and Future Tests (+/- 45 days) The Plan of Treatment section includes future care activities for the patient from all [place] [facility]. This section includes future appointments and future orders which are active, pending or scheduled. Future Appointments This section includes appointments that were scheduled to occur 6 months from the date of the Encounter, up to a maximum of 20 appointments. The data comes from all [place] treatment facilities. Appointment Date/Time Appointment Type Appointme nt Facility Name Jul 30, 2024 09:00 AM AM[place]ULATORY [place] [facility] Aug 12, 2024 12:45 PM AMBULATORY - MEDICINE [facility] Aug 12, 2024 12:46 PM AMBULATORY - MEDICINE [facility] Aug 14, 2024 08:30 AM AM[facility]ULATORY - PS[facility]ATRY [facility] August 26, 2024 11:30 AM [facility] [place] [facility] August 27, 2024 11:00 AM AMBULATORY - MEDICINE [facility] August 28, 2024 09:00 AM AMBULATORY - MEDICINE [facility] September 16, 2024 10:15 AM AM[facility]ULATORY - [place] [facility] Sep 30, 2024 09:00 AM AMBULATORY - MEDICINE [facility] Oct 14, 2024 09:00 AM AMBULATORY - MEDICINE [facility] Oct 29, 2024 02:00 PM AM[facility]ATORY - PS[facility]ATRY [facility] Nov 04, 2024 09:00 AM AMBULATORY - MEDICINE [facility] Nov 11, 2024 01:00 PM AMBULATORY - MEDICINE [facility] Nov 17, 2024 02:40 PM [facility] [facility] Nov 26, 2024 09:00 AM [facility] [place] [facility] Nov 26, 2024 09:40 AM [facility] [place] [facility] Dec 08, 2024 01:40 PM AMBULATORY - MEDICINE [facility] Dec 17, 2024 09:00 AM AMBULATORY - MEDICINE [facility] Active, Pending, and Scheduled Orders This section includes a listing of several types of active, pending, and scheduled orders, including clinic medications orders, diagnostic test orders, procedure orders and consult orders; where the start date of the order is 45 days before the date of the Encounter or 45 days after the date of theEncounter. The data comes from all [place] treatment facilities. Test Date/Time Test Type Test Details Facility Name August 21, 2024 02:41 PM Consult Order [facility] [id number] Cons Chemical Strength Tester's Choice [facility] Lab Results: +/- 30 days of the encounter This section includes the Chemistry and Hematology Lab Results on record with [place] for the patient. Radiology Reports and Pathology Reports are provided separately, in subsequent sections. Lab Results This section contains the Chemistry/Hematology Results that were resulted 30 days before or 30 daysafter the date of the Encounter. Date/Time Source Result Type Result - Unit Interpretation Reference Range Specimen Type Comment Aug 13, 2024 08:05 AM [facility] B12 SERUM Specimen Type: SERUM No comment entered. Ordering Provider: YOMAIRA MULLEN Report Released Date/Time: Aug 11, 2024 10:10 AM Reporting Lab: [place] [facility] [address] [place] [address] Performing Lab: [place] [facility] [address] [place] [address] B12 761 pg/mL 213-816 Aug 13, 2024 08:05 AM [facility] FOLATE (PB) SERUM Specimen Typ e: SERUM No comment entered. Ordering Provider: YOMAIRA MULLEN Report Released Date/Time: Aug 11, 2024 10:10 AM Reporting Lab: [place] [facility] [address] [place] [address] Performing Lab: [place] [facility] [address] [place] [address] FOLATE (PB) 12.3 ng/mL 7-20 Aug 13, 2024 08:05 AM [facility] HGA1C BLOOD Specimen Type: BLOOD No comment entered. Ordering Provider: YOMAIRA MULLEN Report Released Date/Time: Aug 11, 2024 10:10 AM Reporting Lab: [place] [facility] [address] [place] [address] Performing Lab: [place] [facility] [address] [place] [address] HGA1C 5.2 4.0-6.0 Aug 13, 2024 08:05 AM [facility] CHOLESTEROL PANEL (PB) PLASMA Specimen Type: P LASMA No comment entered. Ordering Provider: YOMAIRA MULLEN Report Released Date/Time: Aug 11, 2024 10:10 AM Reporting Lab: [place] [facility] [address] [place] [address] Performing Lab: [place] [facility] [address] [place] [address] CHOLESTEROL 138 mg/dL 0-200 TRIGLYCERIDE 72 mg/dL 0-150 CALCULATED LDL 88.3 mg/dL HDL(New) 35.3 mg/dL L >40 HDL % OF TOTAL CHOLESTEROL (PB) 25.6 >25 Aug 13, 2024 08:05 AM [facility] MAGNESIUM PLASM A Specimen Type: PLASMA No comment entered. Ordering Provider: YOMAIRA MULLEN Report Released Date/Time: Aug 11, 2024 10:10 AM Reporting Lab: [place] [facility] [address] [place] [address] Performing Lab: [place] [facility] [address] [place] [address] MAGNESIUM 2.32 mg/dL 1.6-2.6 Aug 13, 2024 08:05 AM [facility] VITAMIN D, 25-HYDROXY SERUM Specimen Type: SE RUM No comment entered. Ordering Provider: YOMAIRA MULLEN Report Released Date/Time: Aug 11, 2024 10:10 AM Reporting Lab: [place] [facility] [address] [place] [address] Performing Lab: [place] [facility] [address] [place] [facility] VITAMIN D, 25-HYDROXY 40.8 ng/mL 30-96 Aug 13, 2024 08:05 AM [facility] TSH (MA-PB) SERUM Specimen Typ e: SERUM No comment entered. Ordering Provider: YOMAIRA MULLEN Report Released Date/Time: Aug 11, 2024 10:10 AM Reporting Lab: [place] [facility] [address] [place] [address] Performing Lab: [place] [facility] [address] [place] [id number] TSH 2.309 u[IU]/mL 0.47-5 Aug 13, 2024 08:05 AM [facility] TESTOSTERONE, TOTAL (PB-MA) SERUM Specimen Ty pe: SERUM No comment entered. Ordering Provider: YOMAIRA MULLEN Report Released Date/Time: Aug 12, 2024 01:35 PM Reporting Lab: [place] [facility] [address] [place] [address] Performing Lab: [place] [facility] [address] [place] [address] TESTOSTERONE, TOTAL (PB-MA) 174 ng/dL L 22 1.0-871.0 Aug 13, 2024 08:05 AM [facility] CBC BLOOD Specimen Type: BLOOD No comment entered. Ordering Provider: YOMAIRA MULLEN Report Released Date/Time: Aug 11, 2024 10:10 AM Reporting Lab: [place] [facility] [address] [place] [facility] Performing Lab: [place] [facility] [address] [place] [facility] WBC 5.2 10*3/uL 3.6-11.2 RBC 5.25 10*6/uL 4.10-5.70 HGB 16.0 g/dL 13.1-16.8 HCT 45.9 38.2-48.4 MCV 87.4 fL 80.0-100.0 MCH 30.5 pg 27.0-34.0 MCHC 34.9 g/dL 33.0-36.0 PLT 188 10*3/uL 150-400 MPV 11.5 fL H 7.5-11.2 RDW 11.8 11.8-15.1 LYMPHOCYTES, AUTO % 25.4 MONOCYTES, AUTO % 13.5 NEUTROPHILS, AUTO % 56.4 EOSINOPHILS, AUTO % 3.5 BASOPHILS, AUTO % 1.0 LYMPHOCYTES, ABSOLUTE 1.32 10*3/uL 0.77- 4.50 MONOCYTES, ABSOLUTE 0.70 10*3/uL 0.19-0. 8 NEUTROPHILS, ABSOLUTE 2.94 10*3/uL 2.10- 8.00 EOSINOPHILS, ABSOLUTE 0.18 10*3/uL 0.00- 0.60 BASOPHILS, ABSOLUTE 0.05 10*3/uL 0.00-0. 20 IMMATURE GRANS, AUTO % 0.2 IMMATURE GRANS, AUTO ABS 0.01 10*3/uL 0. 00-0.05 Aug 13, 2024 08:05 AM [facility] COMPREHENSIVE METABOLIC PANEL PLASMA Specimen Type: PLASMA No comment entered. Ordering Provider: YOMAIRA MULLEN Report Released Date/Time: Aug 11, 2024 10:10 AM Reporting Lab: [place] [facility] [address] [facility] [place] [facility] [address] Performing Lab: [place] [facility] [address] [facility] [address] CREATININE 1.06 mg/dL 0.7-1.3 UREA NITROGEN 11 mg/dL 9-25 GLUCOSE 89 mg/dL 72-99 SODIUM 142 meq/L 136-145 POTASSIUM 3.7 meq/L 3.5-5 CHLORIDE 107 meq/L 98-107 CARBON DIOXIDE 25 meq/L 22-31 CALCIUM 8.9 mg/dL 8.4-10.4 PROTEIN 7.6 g/dL 6-8.6 ALBUMIN 4.8 g/dL 3.4-5 TOTAL BILIRUBIN 0.6 mg/dL 0.2-1.2 ALKALINE PHOSPHATASE 84 U/L 40-150 AST/SGOT 46 U/L H 5-34 ALT/SGPT 75 U/L H 8-40 EGFR (CKD-EPI 2020) 93 Vital Signs: All taken on the encounter date This section contains inpatient and outpatient Vital Signs collected on the date of the Encounter. Date/Time Temperature Pulse Blood Pressure Respiratory Rate SP02 Pain Height Weight Body Mass Index Source Jul 15, 2024 01:00 PM 97.6 67 117/82 [facility] Social History: Smoking Status (Most current) [...] 23, 2023 10:00 AM AL-TOBACCO NEVER USED [facility] Tobacco Use History This section includes a history of the smoking, or tobacco-related health factors, that were collected on or before the date of the Encounter. The data comes from the [place] facility where the Encounter took place. Date/Time Smoking Status/Tobacco Use Comment F acfunmi Oct 29, 2022 10:00 AM AL-TOBACCO NEVER USED [facility] Encounter Notes: All associated encounter notes This section contains the clinical notes associated to the Encounter. Date/Time Encounter Note(s) Provider Source Jul 15, 2024 12:58 PM CHIROPRACTIC NOTE: LOCAL TITLE: CHIROPRACTIC FOLLOW UP NOTE PB STANDARD TITLE: CHIROPRACTIC NOTE DATE OF NOTE: JUL 15, 2024@12:58 ENTRY DATE: JUL 15, 2024@12:58:05 AUTHOR: JYOTSNA ROMANO COSIGNER: URGENCY: STATUS: COMPLETED CHIROPRACTIC FOLLOW-UP VISIT Patient's language preference for health information: [place] Other Communication Methods Needed: SUBJECTIVE: The Manlius is a 39 year old MALE being seen in the Chiropractic clinic for follow-up visit. The states he is very sore due to yard work over the two weeks. He is pleased to have lost 10 pounds since his last visit. Today, the rates his pain level as [...] restricted in all planes of motion. The Manlius experience pain with the restricted AROM. LUMBAR/THORACIC SPINE: MOVEMENT/POSTURE: The Manlius ambulates without issue. SEGMENTAL DYSFUNCTION: Joint dysfunction [...] every three weeks for six additional treatments. Prognosis: Good Today's treatment of the [...] exercise program and to commit to a usp exercise plan. /adrián/ [facility] Signed: 07/15/2024 13:11 JYOTSNA ROMANO
--- OUTSIDE RECORDS SUMMARY | 2024-07-31 10:17 | XMS_ITS ---
Author Name [facility] [place] [facility] [place] Address [address] [place] [address] Care Team Providers Care Dramatic Agent Name Role Phone YOMAIRA MULLEN Primary Care [...] Rivera's Name Patient's Relationship to Policy Rivera [facility] 2024 [facility] WNR May 31, 2024 [facility] [id number] [phone] JOSEPH SUAZO PATIENT Selected Encounter This section includes the information on record at [place] for the Encounter. Date/Time Encounter Type Encounter Description Reason Provider Source Jul 31, 2024 03:17 PM MTMS BY PHARM TORCH SOLDERER 15 MIN CLINICAL PHARMACY ICD-10-CM J32.9 Chronic sinusitis, unspecified NICK HERNANDEZ Encounter Template Text not used by [place] Assessments - Encounter Diagnoses This section includes the primary and secondary diagnoses documented for the Encounter. Date/Time Primary/Secondary Diagnosis Diagnosis Name Provider Source Jul 31, 2024 03:23 PM PRIMARY Chronic sinusitis, unspecified NICK HERNANDEZ [facility] Plan of Treatment: Future Appointments (+ 6 months) and Future Tests (+/- 45 days) The Plan of Treatment section includes future care activities for the patient from all [place] [facility]. This section includes future appointments and future orders which are active, pending or scheduled. Future Appointments This section includes appointments that were scheduled to occur 6 months from the date of the Encounter, up to a maximum of 20 appointments. The data comes from all [place] treatment facilities. Appointment Date/Time Appointment Type Appointme nt Facility Name Aug 12, 2024 12:45 PM [facility] [place] [facility] Aug 12, 2024 12:46 PM [facility] Aug 14, 2024 08:30 AM AMBULATORY - [place]IAT[place] [facility] [place] [facility] August 26, 2024 11:30 AM [facility] [place] [facility] August 27, 2024 11:00 AM [facility] [place] [facility] August 28, 2024 09:00 AM [facility] [place] [facility] September 16, 2024 10:15 AM [facility] [place] [facility] Sep 30, 2024 09:00 AM [facility] Oct 14, 2024 09:00 AM [facility] Oct 29, 2024 02:00 PM [facility] Nov 04, 2024 09:00 AM [facility] Nov 11, 2024 01:00 PM [facility] Nov 17, 2024 02:40 PM [facility] Nov 26, 2024 09:00 AM [facility] Nov 26, 2024 09:40 AM [facility] Dec 08, 2024 01:40 PM [facility] Dec 17, 2024 09:00 AM [facility] Active, Pending, and Scheduled Orders This section includes a listing of several types of active, pending, and scheduled orders, including clinic medications orders, diagnostic test orders, procedure orders and consult orders; where the start date of the order is 45 days before the date of the Encounter or 45 days after the date of theEncounter. The data comes from all [place] treatment facilities. Test Date/Time Test Type Test Details Facility Name August 21, 2024 02:41 PM Consult Order [facility] [id number] Cons Correction Officer's Choice [place] [facility] Lab Results: +/- 30 days of the encounter This section includes the Chemistry and Hematology Lab Results on record with [place] for the patient. Radiology Reports and Pathology Reports are provided separately, in subsequent sections. Lab Results This section contains the Chemistry/Hematology Results that were resulted 30 days before or 30 daysafter the date of the Encounter. Date/Time Source Result Type Result - Unit Interpretation Reference Range Specimen Type Comment Aug 13, 2024 08:05 AM [place] [facility] B12 SERUM Specimen Type: SERUM No comment entered. Ordering Provider: YOMAIRA MULLEN Report Released Date/Time: Aug 11, 2024 10:10 AM Reporting Lab: [place] [facility] [address] [place] [address] Performing Lab: [place] [facility] [address] [place] [address] B12 761 pg/mL 213-816 Aug 13, 2024 08:05 AM [facility] FOLATE (PB) SERUM Specimen Typ e: SERUM No comment entered. Ordering Provider: YOMAIRA MULLEN Report Released Date/Time: Aug 11, 2024 10:10 AM Reporting Lab: [place] [facility] [address] [place] [address] Performing Lab: [place] [facility] [address] [place] [address] FOLATE (PB) 12.3 ng/mL 7-20 Aug 13, 2024 08:05 AM [place] [facility] HGA1C BLOOD Specimen Type: BLOOD No comment entered. Ordering Provider: YOMAIRA MULLEN Report Released Date/Time: Aug 11, 2024 10:10 AM Reporting Lab: [place] [facility] [address] [place] [address] Performing Lab: [place] [facility] [address] [place] [address] HGA1C 5.2 4.0-6.0 Aug 13, 2024 08:05 AM [facility] MAGNESIUM PLASM A Specimen Type: PLASMA No comment entered. Ordering Provider: YOMAIRA MULELN Report Released Date/Time: Aug 11, 2024 10:10 AM Reporting Lab: [place] [facility] [address] [place] [address] Performing Lab: [place] [facility] [address] [place] [address] MAGNESIUM 2.32 mg/dL 1.6-2.6 Aug 13, 2024 08:05 AM [facility] CHOLESTEROL PANEL (PB) PLASMA Specimen Type: P LASMA No comment entered. Ordering Provider: YOMAIRA MULLEN Report Released Date/Time: Aug 11, 2024 10:10 AM Reporting Lab: [place] [facility] [address] [place] [address] Performing Lab: [place] [facility] [address] [place] [address] CHOLESTEROL 138 mg/dL 0-200 TRIGLYCERIDE 72 mg/dL 0-150 CALCULATED LDL 88.3 mg/dL HDL(New) 35.3 mg/dL L >40 HDL % OF TOTAL CHOLESTEROL (PB) 25.6 >25 Aug 13, 2024 08:05 AM [facility] VITAMIN D, 25-HYDROXY SERUM Specimen Type: SE RUM No comment entered. Ordering Provider: YOMAIRA MULLEN Report Released Date/Time: Aug 11, 2024 10:10 AM Reporting Lab: [place] [facility] [address] [place] [address] Performing Lab: [place] [facility] [address] [place] [address] VITAMIN D, 25-HYDROXY 40.8 ng/mL 30-96 Aug 13, 2024 08:05 AM [facility] TSH (MA-PB) SERUM Specimen Typ e: SERUM No comment entered. Ordering Provider: YOMAIRA MULLEN Report Released Date/Time: Aug 11, 2024 10:10 AM Reporting Lab: [place] [facility] [address] [place] [address] Performing Lab: [place] [facility] [address] [place] [address] TSH 2.309 u[IU]/mL 0.47-5 Aug 13, 2024 08:05 AM [facility] TESTOSTERONE, TOTAL (PB-MA) SERUM Specimen Ty pe: SERUM No comment entered. Ordering Provider: YOMAIRA MULLEN Report Released Date/Time: Aug 12, 2024 01:35 PM Reporting Lab: [place] [facility] [address] [place] [address] Performing Lab: [place] [facility] [address] [place] [address] TESTOSTERONE, TOTAL (PB-MA) 174 ng/dL L 22 1.0-871.0 Aug 13, 2024 08:05 AM [facility] CBC BLOOD Specimen Type: BLOOD No comment entered. Ordering Provider: YOMAIRA MULLEN Report Released Date/Time: Aug 11, 2024 10:10 AM Reporting Lab: [place] [facility] [address] [place] [address] Performing Lab: [place] [facility] [address] [place] [address] WBC 5.2 10*3/uL 3.6-11.2 RBC 5.25 10*6/uL [...] 0. 00-0.05 Aug 13, 2024 08:05 AM [facility] COMPREHENSIVE METABOLIC PANEL PLASMA Specimen Type: PLASMA No comment entered. Ordering Provider: YOMAIRA MULLEN Report Released Date/Time: Aug 11, 2024 10:10 AM Reporting Lab: [place] [facility] [address] [place] [address] Performing Lab: [place] [facility] [address] [place] [address] CREATININE 1.06 mg/dL 0.7-1.3 UREA NITROGEN 11 [...] U/L H 8-40 EGFR (CKD-EPI 2020) 93 Social History: Smoking Status (Most current) and Tobacco Use (All prior to encounter date) This section includes the most current, and the historical, smoking and tobacco- related health factors from the [place] facility where the Encounter took place. Current Smoking Status This section includes the most current smoking, or tobacco-related health factor, from the [place] facility where the Encounter took place. Date/Time Current Smoking Status Comment Facil ity Oct 17, 2021 08:30 AM [place]ED [facility] Radiology Reports: +/- 30 days of the [...] the Encounter. The data comes from all [place] treatment facilities. Date/Time Radiology Report Provider Source August 27, 2024 11:08 AM SPINE LUMBOSACRAL 2 OR 3 VIEWS: SHARI SUAZO [id number] -1985 M Exm Date: AUGUST 27, 2024@11:08 Req Phys: JYOTSNA ROMANO Loc: [facility] (Req'g Loc) Img Loc: [facility]-X[facility] [place] Service: [place] [address] (Case [id number] COMPLETE) SPINE LUMBOSACRAL 2 OR 3 VIEWS (RAD Detailed) CPT:99713 Reason for Study: recent trauma Clinical History: Report Status: Verified Date Reported: AUGUST 27, 2024 Date Verified: AUGUST 27, 2024 Video Coordinator E-Sig: Report: EXAM: Lumbar spine AP, lateral, and coned lateral views. FINDINGS: There is no acute fracture or dislocation. The L2-3 disc space is narrowed. There are mild osseous degenerative changes. There is a Schmorl node endplate deformity involving the superior endplate of L3. Impression: 1. No evidence of acute osseous injury involving the lumbar spine. 2. Degenerative disc disease with narrowing of the disc space at the L2-3 level. 3. Mild osseous degenerative changes. Primary Interpreting Staff: Alexys Harris M.D., Radiology (Video Coordinator, no e-sig) /[facility] [place] [facility] August 27, 2024 11:08 AM SPINE THORACIC 2 V IEWS: SHARI SUAZO [id number] -1985 M Exm Date: AUGUST 27, 2024@11:08 Req Phys: JYOTSNA ROMANO Loc: [facility] (Req'g Loc) Img Loc: [facility] [place] Service: [place] [address] (Case [id number] COMPLETE) SPINE THORACIC 2 VIEWS (RAD Detailed) CPT:56794 Reason for Study: recent trauma Clinical History: Report Status: Verified Date Reported: AUGUST 27, 2024 Date Verified: AUGUST 27, 2024 Video Coordinator E-Sig: Report: EXAM: Thoracic spine AP, lateral, and lateral swimmer's views. FINDINGS: There is no acute fracture or dislocation. There are very mild degenerative changes. There is very mild scoliosis. Impression: 1. No evidence of acute osseous injury involving the thoracic spine. 2. Very mild degenerative changes. 3. Very mild scoliosis. Primary Interpreting Staff: Alexys Harris M.D., Radiology (Video Coordinator, no e-sig) /[facility] [place] [facility] August 27, 2024 11:08 AM SPINE CERVICAL MIN 4 OR 5 VIEWS: SHARI SUAZO [id number] -1985 M Exm Date: AUGUST 27, 2024@11:08 Req Phys: JYOTSNA ROMANO Loc: [facility] (Req'g Loc) Img Loc: [facility] [place] Service: [place] [address] (Case [id number] COMPLETE) SPINE CERVICAL MIN 4 OR 5 VIEWS (RAD Detailed) CPT:39666 Reason for Study: recent trauma Clinical History: Report Status: Verified Date Reported: AUGUST 27, 2024 Date Verified: AUGUST 27, 2024 Video Coordinator E-Sig: Report: EXAM: Cervical spine AP, lateral, odontoid, and bilateral oblique views. FINDINGS: There is no acute fracture or dislocation. There is no osseous destructive process or prevertebral soft tissue edema. There is mild narrowing of the C6-7 disc space. There are mild osseous degenerative changes. There is mild neural canal narrowing. Impression: 1. No evidence of acute osseous injury involving the cervical spine. 2. Mild narrowing of the C6-7 disc space. 3. Mild osseous degenerative changes. 3. Mild neural canal narrowing. Primary Interpreting Staff: Alexys Harris M.D., Radiology (Video Coordinator, no e-sig) /[facility]EXYS VER[facility] Encounter Notes: All associated encounter notes This section contains the clinical notes associated to the Encounter. Date/Time Encounter Note(s) Provider Source Jul 31, 2024 03:17 PM PHARMACY CONSULT: LOCAL TITLE: NON FORMULARY CONSULT PB STANDARD TITLE: PHARMACY CONSULT DATE OF NOTE: JUL 31, 2024@15:17 ENTRY DATE: JUL 31, 2024@15:17:49 AUTHOR: NICK HERNANDEZ COSIGNER: URGENCY: STATUS: COMPLETED NON FORMULARY CONSULT PB Has ADDENDA The medical record has been reviewed with regard to this prior authorization drug request. This prior authorization drug request originated with a [facility] provider. Medication requested: LEVOCETIRIZINE DIHYDROCHLORIDE 5MG TAB (XYZAL) Medication indication: Allergic rhinitis Medical history relevant to this request: Allergic rhinitis. Order is for Xyzal 5mg BID which is ~ Zytrec 10mg bid. Records indicate only Zyrtec 10mg daily. Can try Zyrtec 10mg bid or Fexofenadine 180mg is available formulary. The request does not meet criteria - The preferred alternative therapeutic option(s) have not been exhausted Comment: Fexofenadine 180mg - Maximally tolerated dose(s) of preferred agent(s) have not been tried Comment: Cetirizine 10mg bid /adrián/ NICK HERNANDEZ CLINICAL FINANCE AND ADMINISTRATION MANAGER Signed: 07/31/2024 15:23 Receipt Acknowledged By: 07/31/2024 15:44 /adrián/ YUE CUELLAR CLINICAL PHARMACIST 07/31/2024 ADDENDUM STATUS: COMPLETED Faxing prescriber's office to notify of the non-formulary or prior approval agent not being approved and to recommend the above /adrián/ YUE CUELLAR CLINICAL PHARMACIST Signed: 07/31/2024 15:44 NICK HERNANDEZ [facility]
--- OUTSIDE RECORDS SUMMARY | 2024-08-12 07:45 | XMS_ITS | Encounter Summary ---
Author Name [facility] [place] [facility] [place] Address [address] [place] [address] Care Team Providers Care Pearl Digger Name Role Phone SEBAS YOMAIRA Primary Care Provider Unavailabl e Insurance Providers: [...] Rivera's Name Patient's Relationship to Policy Rivera [facility] 2024 [facility] May 31, 2024 SELECT [phone] [place]PH [place] PATIENT Selected Encounter This section includes the information on record at [place] for the Encounter. Date/Time Encounter Type Encounter Description Reason Provider Source Aug 12, 2024 12:45 PM TELEHEALTH FACILITY FEE PRIMARY CARE/MEDICINE ICD-10-CM Z00.01 Encounter for general adult medical exam w abnormal findings LALY MALAGON Encounter Template Text not used by [place] Assessments - Encounter Diagnoses This section includes the primary and secondary diagnoses documented for the Encounter. Date/Time Primary/Secondary Diagnosis Diagnosis Name Provider Source Aug 12, 2024 03:26 PM PRIMARY Encounter for general adult medical exam w abnormal findings LALY MALAGON [facility] Plan of Treatment: Future Appointments (+ 6 months) and Future Tests (+/- 45 days) The Plan of Treatment section includes future care activities for the patient from all [place] [facility]. This section includes future appointments and future orders which are active, pending or scheduled. Future Appointments This section includes appointments that were scheduled to occur 6 months from the date of the Encounter, up to a maximum of 20 appointments. The data comes from all [facility]. Appointment Date/Time Appointment Type Appointme nt Facility Name Aug 14, 2024 08:30 AM AMBULATORY - PSYCHIATRY [facility] August 26, 2024 11:30 AM AMBULATORY - MEDIC[place] [facility] August 27, 2024 11:00 AM [place] [facility] August 28, 2024 09:00 AM [facility] [place] [facility] September 16, 2024 10:15 AM [place]ULATORY - [place]IC[place] [facility] Sep 30, 2024 09:00 AM [facility] [place] [facility] Oct 14, 2024 09:00 AM [facility] [facility] Oct 29, 2024 02:00 PM AMBULATORY [facility]RY [facility] Nov 04, 2024 09:00 AM [facility] [place] [facility] Nov 11, 2024 01:00 PM AMB[facility] - [facility]ICINE [facility] Nov 17, 2024 02:40 PM AMB[facility] - [facility] Nov 26, 2024 09:00 AM [facility] Nov 26, 2024 09:40 AM [facility] Dec 08, 2024 01:40 PM [facility]ORY - [facility]ICINE [facility] Dec 17, 2024 09:00 AM AMBULATORY - MEDICINE [facility] Active, Pending, and Scheduled Orders This section includes a listing of several types of active, pending, and scheduled orders, including clinic medications orders, diagnostic test orders, procedure orders and consult orders; where the start date of the order is 45 days before the date of the Encounter or 45 days after the date of theEncounter. The data comes from all [facility]. Test Date/Time Test Type Test Details Facility Name August 21, 2024 02:41 PM Consult Order [facility]ITY [facility]-PODIATRY [id number] [address] Line [facility] Lab Results: +/- 30 days of the encounter This section includes the Chemistry and Hematology Lab Results on record with [place] for the patient. Radiology Reports and Pathology Reports are provided separately, in subsequent sections. Lab Results This section contains the Chemistry/Hematology Results that were resulted 30 days before or 30 daysafter the date of the Encounter. Date/Time Source Result Type Result - Unit Interpretation Reference Range Specimen Type Comment Aug 13, 2024 08:05 AM [facility] B12 SERUM Specimen Type: SERUM No comment entered. Ordering Provider: YOMAIRA MULLEN Report Released Date/Time: Aug 11, 2024 10:10 AM Reporting Lab: [place] [facility] [address] [place] [address] Performing Lab: [place] [facility] [address] [place] [address] B12 761 pg/mL 213-816 Aug 13, 2024 08:05 AM [facility] FOLATE (PB) SERUM Specimen Typ e: SERUM No comment entered. Ordering Provider: YOMAIRA MULLEN Report Released Date/Time: Aug 11, 2024 10:10 AM Reporting Lab: [place] [facility] [address] [place] [address] Performing Lab: [place] [facility] [address] [place] [address] FOLATE (PB) 12.3 ng/mL 7-20 Aug 13, 2024 08:05 AM [facility] HGA1C BLOOD Specimen Type: BLOOD No comment entered. Ordering Provider: YOMAIRA MULLEN Report Released Date/Time: Aug 11, 2024 10:10 AM Reporting Lab: [place] [facility] [address] [place] [address] Performing Lab: [place] [facility] [address] [place] [address] HGA1C 5.2 4.0-6.0 Aug 13, 2024 08:05 AM [facility] MAGNESIUM PLASM A Specimen Type: PLASMA No comment entered. Ordering Provider: YOMAIRA MULLEN Report Released Date/Time: Aug 11, 2024 10:10 AM Reporting Lab: [place] [facility] [address] [place] [address] Performing Lab: [place] [facility] [address] [place] [address] MAGNESIUM 2.32 mg/dL 1.6-2.6 Aug 13, 2024 08:[address] [facility] CHOLESTEROL PANEL (PB) PLASMA Specimen Type: P LASMA No comment entered. Ordering Provider: YOMAIRA MULLEN Report Released Date/Time: Aug 11, 2024 10:10 AM Reporting Lab: [place] [facility] [address] [place] [address] Performing Lab: [place] [facility] [address] [place] [address] CHOLESTEROL 138 mg/dL 0-200 TRIGLYCERIDE 72 mg/dL 0-150 CALCULATED LDL 88.3 mg/dL HDL(New) 35.3 mg/dL L >40 HDL % OF TOTAL CHOLESTEROL (PB) 25.6 >25 Aug 13, 2024 08:[address] [facility] VITAMIN D, 25-HYDROXY SERUM Specimen Type: SE RUM No comment entered. Ordering Provider: YOMAIRA MULLEN Report Released Date/Time: Aug 11, 2024 10:10 AM Reporting Lab: [place] [facility] [address] [place] [address] Performing Lab: [place] [facility] [address] [place] [address] VITAMIN D, 25-HYDROXY 40.8 ng/mL 30-96 Aug 13, 2024 08:[address] [facility] TSH (MA-PB) SERUM Specimen Typ e: SERUM No comment entered. Ordering Provider: YOMAIRA MULLEN Report Released Date/Time: Aug 11, 2024 10:10 AM Reporting Lab: [place] [facility] [address] [place] [address] Performing Lab: [place] [facility] [address] [place] [address] TSH 2.309 u[IU]/mL 0.47-5 Aug 13, 2024 08:[address] [facility] TESTOSTERONE, TOTAL (PB-MA) SERUM Specimen Ty pe: SERUM No comment entered. Ordering Provider: YOMAIRA MULLEN Report Released Date/Time: Aug 12, 2024 01:35 PM Reporting Lab: [place] [facility] [address] [place] [address] Performing Lab: [place] [facility] [address] [place] [address] TESTOSTERONE, TOTAL (PB-MA) 174 ng/dL L 22 1.0-871.0 Aug 13, 2024 08:[address] [facility] CBC BLOOD Specimen Type: BLOOD No comment entered. Ordering Provider: YOMAIRA MULLEN Report Released Date/Time: Aug 11, 2024 10:10 AM Reporting Lab: [place] [facility] [address] [place] [address] Performing Lab: [place] [facility] [address] [place] [address] WBC 5.2 10*3/uL 3.6-11.2 RBC 5.25 10*6/uL [...] 0. 00-0.05 Aug 13, 2024 08:[address] [facility] COMPREHENSIVE METABOLIC PANEL PLASMA Specimen Type: PLASMA No comment entered. Ordering Provider: YOMAIRA MULLEN Report Released Date/Time: Aug 11, 2024 10:10 AM Reporting Lab: [place] [facility] [address] [place] [address] Performing Lab: [place] [address] [place] [address] CREATININE 1.06 mg/dL 0.7-1.3 UREA NITROGEN 11 [...] Pain Height Weight Body Mass Index Source Aug 12, 2024 12:51 PM 98.3 88 118/68 18 251.6 34 [facility] Social History: Smoking Status (Most current) and Tobacco Use (All prior to encounter date) This section includes the most current, and the historical, smoking and tobacco- related health factors from the [place] facility where the Encounter took place. Current Smoking Status This section includes the most current smoking, or tobacco-related health factor, from the [place] facility where the Encounter took place. Date/Time Current Smoking Status Comment Rosetta rollins Oct 23, 2023 10:00 AM [place]-TOBACCO NEVER USED [facility] Tobacco Use History This section includes a history of the smoking, or tobacco-related health factors, that were collected on or before the date of the Encounter. The data comes from the [place] facility where the Encounter took place. Date/Time Smoking Status/Tobacco Use Comment F vincenzo Oct 29, 2022 10:00 AM [place]-TOBACCO NEVER USED [facility] Radiology Reports: +/- 30 days of the [...] the Encounter. The data comes from all [place] treatment facilities. Date/Time Radiology Report Provider Source August 27, 2024 11:08 AM SPINE LUMBOSACRAL 2 OR 3 VIEWS: SHARI SUAZO [id number] -1985 M Exm Date: AUGUST 27, 2024@11:08 Req Phys: JYOTSNA ROMANO Loc: [facility] (Req'g Loc) Img Loc: [facility] [place] Service: [place] [address] (Case [id number] COMPLETE) SPINE LUMBOSACRAL 2 OR 3 VIEWS (RAD Detailed) CPT:43829 Reason for Study: recent trauma Clinical History: Report Status: Verified Date Reported: AUGUST 27, 2024 Date Verified: AUGUST 27, 2024 Industrial Coffee Grinder E-Sig: Report: EXAM: Lumbar spine AP, lateral, [...] Primary Interpreting Staff: Alexys Harris M.D., Radiology (Industrial Coffee [employer]inder, no e-sig) /[facility] [place] [facility] August 27, 2024 11:08 AM SPINE THORACIC 2 V IEWS: SHARI SUAZO [id number] -1985 M Exm Date: AUGUST 27, 2024@11:08 Req Phys: JYOTSNA ROMANO Loc: [facility] (Req'g Loc) Img Loc: [facility] [place] Service: [place] [address] (Case [id number] COMPLETE) SPINE THORACIC 2 VIEWS (RAD Detailed) CPT:01567 Reason for Study: recent trauma Clinical History: Report Status: Verified Date Reported: AUGUST 27, 2024 Date Verified: AUGUST 27, 2024 Industrial Coffee Grinder E-Sig: Report: EXAM: Thoracic spine AP, lateral, and lateral swimmer's views. FINDINGS: There is no acute fracture or dislocation. There are very mild degenerative changes. There is very mild scoliosis. Impression: 1. No evidence of acute osseous injury involving the thoracic spine. 2. Very mild degenerative changes. 3. Very mild scoliosis. Primary Interpreting Staff: Alexys Harris M.D., Radiology (Industrial Coffee [employer]inder, no e-sig) /[facility] [place] [facility] August 27, 2024 11:08 AM SPINE CERVICAL MIN 4 OR 5 VIEWS: SHARI SUAZO [id number] -1985 M Exm Date: AUGUST 27, 2024@11:08 Req Phys: JYOTSNA ROMANO Loc: [facility] (Req'g Loc) Img Loc: [facility] [place] Service: [place] [address] (Case [id number] COMPLETE) SPINE CERVICAL MIN 4 OR 5 VIEWS (RAD Detailed) CPT:22365 Reason for Study: recent trauma Clinical History: Report Status: Verified Date Reported: AUGUST 27, 2024 Date Verified: AUGUST 27, 2024 Industrial Coffee Grinder E-Sig: Report: EXAM: Cervical spine AP, lateral, [...] Primary Interpreting Staff: Alexys Harris M.D., Radiology (Industrial Coffee Grinder, no e-sig) /[facility] Encounter Notes: All associated encounter notes This section contains the clinical notes associated to the Encounter. Date/Time Encounter Note(s) Provider Source Aug 12, 2024 12:52 PM PRIMARY CARE NURSI NG NOTE: LOCAL TITLE: PRIMARY CARE NURSING PROGRESS NOTE (TEXT) NURSING P STANDARD TITLE: PRIMARY CARE NURSING NOTE DATE OF NOTE: AUG 12, 2024@12:52 ENTRY DATE: AUG 12, 2024@12:52:46 AUTHOR: LALY MALAGON COSIGNER: URGENCY: STATUS: COMPLETED Established Patient SHARI SUAZO IS A 39 YEAR OLD MALE BEING SEEN IN CLINIC AUG 12, 2024. = = REASON FOR VISIT: establish care transfer from [place], wants to discuss handicap placards for foot and knee pain Are you receiving care any where other than the [facility]? Yes, List: podiatry HEALTH AND SURGICAL HISTORY: no Does patient report using home oxygen? No CURRENT ACTIVE MEDICATIONS FOR REVIEW: If the list for review does not include a component, then it was not applicable to this patient. Allergies/ADRs (Tool #5) FACILITY ALLERGY/ADR -------- No Remote Allergy/ADR Data available for this patient [facility] No Known Allergies Med. Reconciliation (Tool #1) INCLUDED IN THIS LIST: Alphabetical list of active outpatient prescriptions dispensed from this VA (local) and dispensed from another VA or DoD facility (remote) as well as inpatient orders (local pending and active), local clinic medications, locally documented non-VA medications, and local prescriptions that have or been discontinued in the past 90 days. Non-VA Meds Last Documented On: September 03, 2023 NOTE The display of VA prescriptions dispensed from another VA or DoD facility (remote) is limited to active outpatient prescription entries matched to National Drug File at the originating site and may not include some items such as investigational drugs, compounds, etc. NOT INCLUDED IN THIS LIST: Medications self-entered by the patient into personal health records (i.e. [facility]) are NOT included in this list. Non-VA medications documented outside this [place], remote inpatient orders (regardless of status) and remote clinic medications are NOT included in this list. The patient and provider must always discuss medications the patient is taking, regardless of where the medication was dispensed or obtained. OUTPT AMITRIPTYLINE HCL 25MG TAB (Status = Discontinued) TAKE ONE TABLET BY MOUTH AT BEDTIME DIRECTED FOR SLEEP TAKE ONE-HALF TO ONE TABLET AT BEDTIME NEEDED . Rx# [id number] Last Released: 05/20/24 Qty/Days Supply: Rx Expiration Date: 02/21/25 Refills Remainin Indication: FOR SLEEP OUTPT AMITRIPTYLINE HCL 25MG TAB (Status = Active/Suspended) TAKE ONE TABLET BY MOUTH AT BEDTIME DIRECTED FOR SLEEP TAKE ONE-HALF TO ONE TABLET AT BEDTIME NEEDED. Rx# [id number] Last Released: 08/04/24 Qty/Days Supply: Rx Expiration Date: 05/29/25 Refills Remainin Indication: FOR SLEEP Non-VA CEPHALEXIN 500MG CAP TAKE 1 CAPSULE BY MOUTH EVERY 6 HOURS September 03, 2023 [place] RX: Non-VA medication recommended by [place] provider Indication: FOR SKIN OR SOFT TISSUE INFECTION OUTPT CETIRIZINE HCL 10MG TAB (Status = Active/Suspended) TAKE ONE TABLET BY MOUTH ONCE A DAY FOR ALLERGY SYMPTOMS Rx# [id number] Last Released: 07/31/24 Qty/Days Supply: Rx Expiration Date: 07/31/25 Refills Remainin Indication: FOR ALLERGY SYMPTOMS OUTPT ESCITALOPRAM OXALATE 20MG TAB (Status = Discontinued) TAKE ONE-HALF TABLET BY MOUTH ONCE A DAY FOR DEPRESSION DOSE DECREASE Rx# [id number] Last Released: 05/05/24 Qty/Days Supply: Rx Expiration Date: 02/21/25 Refills Remainin Indication: FOR DEPRESSION OUTPT ESCITALOPRAM OXALATE 20MG TAB (Status = Active/Suspended) TAKE ONE-HALF TABLET BY MOUTH ONCE A DAY FOR DEPRESSION DOSE DECREASE Rx# [id number] Last Released: 07/14/24 Qty/Days Supply: Rx Expiration Date: 05/29/25 Refills Remainin Indication: FOR DEPRESSION OUTPT FLUTICASONE PROP 50MCG 120D NASAL INHL (Status = Discontinued) USE 1-2 SPRAYS IN NOSTRIL(S) TWICE A DAY DIRECTED . USE WITH PATANSE (OLOPATADINE). (MUST BE USED DIRECTED FOR MINIMUM OF 21 DAYS TO PROVIDE ADEQUATE BENEFITS). Rx# [id number] Last Released: 04/01/24 Qty/Days Supply: Rx Expiration Date: 01/20/25 Refills Remainin OUTPT FLUTICASONE PROP 50MCG 120D NASAL INHL (Status = Active/Suspended) INSTILL ONE TO TWO IN NOSTRIL(S) TWICE A DAY (MUST BE USED DIRECTED FOR MINIMUM OF 21 DAYS TO PROVIDE ADEQUATE BENEFITS) Rx# [id number] Last Released: 07/31/24 Qty/Days Supply: Rx Expiration Date: 07/31/25 Refills Remainin OUTPT HYDROXYZINE HCL 25MG TAB (Status = Discontinued) TAKE ONE TABLET BY MOUTH THREE TIMES A DAY NEEDED FOR ANXIETY *MAY CAUSE DROWSINESS* Rx# [id number] Last Released: 03/31/24 Qty/Days Supply: [id number] Rx Expiration Date: 02/21/25 Refills Remainin Indication: FOR ANXIETY OUTPT HYDROXYZINE HCL 25MG TAB (Status = Active/Suspended) TAKE ONE TABLET BY MOUTH THREE TIMES A DAY NEEDED FOR ANXIETY *MAY CAUSE DROWSINESS* Rx# [id number] Last Released: 06/19/24 Qty/Days Supply: 270 Rx Expiration Date: 05/29/25 Refills Remainin Indication: FOR ANXIETY OUTPT OLOPATADINE HCL 0.7% OPH SOLN (Status = ) INSTILL 1 DROP IN BOTH EYES ONCE A DAY FOR ALLERGIES Rx# [id number] Last Released: 12/23/23 Qty/Days Supply: 2.09/18 Rx Expiration Date: 07/19/24 Refills Remainin OUTPT OLOPATADINE HCL 665MCG/SPRAY NASAL SPRAY (Status = Discontinued) USE 1-2 SPRAYS INTO NOSTRIL(S) TWICE A DAY DIRECTED . USE WITH FLONASE. Rx# [id number] Last Released: 06/03/24 Qty/Days Supply: 05/21 Rx Expiration Date: 01/20/25 Refills Remainin OUTPT OLOPATADINE HCL 665MCG/SPRAY NASAL SPRAY (Status = Active/Suspended) USE ONE TO TWO SPRAYS INTO EACH NOSTRIL TWICE A DAY Rx# [id number] Last Released: 08/07/24 Qty/Days Supply: 05/21 Rx Expiration Date: 07/31/25 Refills Remainin OUTPT ROPINIROLE HCL 4MG TAB (Status = Active/Suspended) TAKE ONE TABLET BY MOUTH AT BEDTIME FOR RESTLESS LEG SYNDROME Rx# [id number] Last Released: 06/13/24 Qty/Days Supply: 90 Rx Expiration Date: 01/06/25 Refills Remainin Indication: FOR RESTLESS LEG SYNDROME OUTPT SINUS RINSE NEILMED PKT (Status = Active) USE 1 PACKET NOSTRIL(S) ONCE A DAY FOR NASAL CONGESTION Rx# [id number] Last Released: 06/26/24 Qty/Days Supply: 100/ Rx Expiration Date: 10/23/24 Refills Remainin Indication: FOR NASAL CONGESTION SUPPLIES PHARMACY TERMS AND POSSIBLE PATIENT ACTIONS INPT = [place] inpatient order IV = [place] intravenous medication OUTPT = [place] outpatient prescription PHARMACY POSSIBLE PATIENT TERMS EXPLANATION ACTIONS -------- ---- ACTIVE A prescription that can be If you have refills, filled at the local VA pharmacy. you may request a refill of this prescription from your VA pharmacy. CLINIC A medication you received during If you have questions a visit to a VA clinic or about this medication emergency department. contact your VA healthcare team. DISCONTINUED A prescription your provider has Contact your VA stopped. It is no longer healthcare team if you available to be sent to you or need more of this picked up at the [place] pharmacy medication. window. A prescription which is too old Contact your VA to fill. This does not refer to healthcare team if you the expiration date of the need more of this medication in the container. medication. NON-VA A medication that came from If this medication someplace other than a VA information is pharmacy. This may be a incorrect or out of prescription from either the VA date, please tell your or non VA providers that was VA healthcare team. filled outside the VA. Or, it may be an [id number] (OTC), herbal, dietary supplements or sample medication. ON HOLD An active prescription that will Contact your VA not be filled until pharmacy pharmacy when you need resolves the issue. more of this medication. PARKED An active prescription that will Contact your VA not be filled until the patient pharmacy when you need requests it. this medication. PENDING This prescription order has been If you have been sent to the pharmacy for review instructed to start and is not ready yet. this medication now, contact your VA pharmacy. SUSPENDED An active prescription that is Contact your [place] not scheduled to be filled yet. pharmacy if you need You should receive it before this medication now. you run out. Medication list reviewed with Patient Patient/Caregiver reports taking medications as ordered. IS PATIENT TAKING ANY OVER THE COUNTER MEDICATIONS, SUCH VITAMINS OR HERBAL SUPPLEMENTS, INCLUDING ANY MEDICATIONS PRESCRIBED BY ANOTHER PHYSICIAN? Yes, List: trizepitide Does patient have any new allergies to report since last visit? NO VITALS: TEMPERATURE: 98.3 F [36.8 C] (08/12/2024 12:51) BP: 118/68 (08/12/2024 12:51) RESP: 18 (08/12/2024 12:51) PULSE: 88 (08/12/2024 12:51) HT: 72 in [182.9 cm] (05/28/2024 14:18) WT: 251.6 lb [114.12 kg] (08/12/2024 12:51) BMI: 34.2 PAIN ASSESSMENT: (Most Recent Pain Score in Vitals Package: 5 (05/28/2024 14:18) ) The patient indicated that they and their close contacts have not traveled outside of the [place] in the past 21 days. The patient reports the following symptoms: No symptoms present The patient is not immunocompromised. The patient does not report having a history of Multi Drug Resistant Organism (MDRO) within the last five years. The patient does not report having been exposed to measles, chickenpox, or zoster in last 30 days. This patient's last pain assessment score was: 5 (05/28/2024 14:18). A detailed pain assessment showed the following: Pain characteristics (per patient's own words) Constant Location of current pain Generalize Joint Pain, Neck, Upper Back Onset/Duration of the current pain. Constant or variable? More than a year STRESS: Thank you for your service. Now let us serve you. At the [facility], we strive to provide you with exceptional health care that improves your health and well-being. Are you feeling sad, empty, or depressed? No Do you need to talk about things in your life that worry you or cause you stress? No Do you need to talk about personal problems, family problems, alcohol use, drug use, or mental or emotional illness? No SUICIDE SCREENING: The patient was asked, Over the past two weeks, how often have you been bothered by thoughts that you would be better off or of hurting yourself in some way? Not At All SPIRITUAL ASSESSMENT: Are there mandaen practices or spiritual concerns you want the boiler tenders supervisor, your physician, and other health care team members to immediately know about? No Patient advised to call the clinic for any concerns, questions, or symptoms. Patient and/or caregiver verbalized understanding of plan of care. COVID-19 Immunization - L,N,P,PH,U: Refused Moderna Monovalent COVID-19 vaccine Immunization: COVID-19 (MODERNA), MRNA, LNP-S, PF, 50 MCG/0.5 ML (AGES 12+ YEARS) Refusal Reason: PATIENT DECISION Patient refuses all immunization(s) in the COVID-19 group Date Documented: 08/12/24 12:57 Advanced Directive Screen/Clinical Engineer: ADVANCE DIRECTIVE SCREENING: I asked if the patient has an advance directive, and determined that: Patient does not have an Advance Directive. Patient declines advance directive education/instruction at this time. ADVANCE DIRECTIVE NOTIFICATION I provided the patient with written notification about advance directives. Level of understanding: Good Influenza Immunization - L,N,P,PH,U: Deferral / Refusal The patient declines to receive the recommended dose of seasonal influenza vaccine. Immunization: INFLUENZA, UNSPECIFIED FORMULATION Refusal Reason: PATIENT DECISION Patient refuses all immunization(s) in the FLU group Date Documented: 08/12/24 12:57 MOVE Weight Management: Most recent BMI: 34.2. educated on health risk of obesity and treatment is offered. Participation in a weight management program was considered/offered for this patient based on the current BMI score. Patient declines participation in a weight management program. Pain Assessment: - PAIN ASSESSMENT: .. This patient's last pain assessment score was: 5 (05/28/2024 14:18). A detailed pain assessment showed the following: Pain characteristics (per patient's own words) Constant, Aching, Heaviness Location of current pain Generalize Joint Pain knee and feet worst Onset/Duration of the current pain. Constant or variable? More than a year Pain is aggravated by: Exercise, Standing, Walking Current or historical pain relief. Muscle Relaxants rest pain medications. Patient's self identified pain goal: 4 Weight Control/Nutrition Counseling: * Patient declined nutrition and weight screen counseling at this encounter. Patient/Nurse Interview: * * Patient states that questions were answered in a way that was easily understood. * Patient stated that adequate information was received regarding the condition and/or treatment. /adrián/ LALY VILLEDA RN [place] [facility] Signed: 08/12/2024 12:59 LALY MALAGON [facility]
--- OUTSIDE RECORDS SUMMARY | 2024-08-12 07:46 | XMS_ITS | Encounter Summary ---
Author Name [facility] [place] Organization [facility] [place] Address [address] [place] [address] Care Team Providers Care Signal And Communications Maintainer Name Role Phone EMMA MULLEN Primary Care Provider Unavailabl e Insurance [...] Relationship to Policy Rivera [facility] 2024 [facility] May 31, 2024 SELECT [id number] [phone] [facility] Faustino PATIENT Selected Encounter This section includes the information on record at [place] for the Encounter. Date/Time Encounter Type Encounter Description Reason Provider Source Aug 12, 2024 12:46 PM SYNCH AUDIO-VIDEO EST HI 40 PRIMARY CARE/MEDICINE ICD-10-CM Z00.01 Encounter for general adult medical exam w abnormal findings EMMA MULLEN Encounter Template Text not used by [place] Assessments - Encounter Diagnoses This section includes the primary and secondary diagnoses documented for the Encounter. Date/Time Primary/Secondary Diagnosis Diagnosis Name Provider Source Aug 12, 2024 01:58 PM PRIMARY Encounter for general adult medical exam w abnormal findings EMMA MULLEN [facility] Aug 12, 2024 01:58 PM SECONDARY Abnormal level of hormones in specimens from oth org/tiss [facility] [place] [place] [facility] Aug 12, 2024 01:58 PM SECONDARY Cervicalgia [facility] [place] Aug 12, 2024 01:58 PM SECONDARY Insomnia, unspecified [facility] [place] Aug 12, 2024 01:58 PM SECONDARY Low back pain, unspecified [facility] [place] Aug 12, 2024 01:58 PM SECONDARY Oth meniscus derangements, unsp lateral meniscus, unsp knee [facility] [place] [facility] Aug 12, 2024 01:58 PM SECONDARY Restless legs syndrome EMMA MULLEN [place] [facility] Plan of Treatment: Future Appointments (+ 6 months) and Future Tests (+/- 45 days) The Plan of Treatment section includes future care activities for the patient from all [place] [facility]. This section includes future appointments and future orders which are active, pending or scheduled. Future Appointments This section includes appointments that were scheduled to occur 6 months from the date of the Encounter, up to a maximum of 20 appointments. The data comes from all [place] treatment facilities. Appointment Date/Time Appointment Type Appointme nt Facility Name Aug 14, 2024 08:30 AM AMBULATORY - PSYCHIATRY [facility] August 26, 2024 11:30 AM [facility]ULAT[facility]IC[facility] [place] [facility] August 27, 2024 11:00 AM AMBULATORY - MEDICINE [facility] August 28, 2024 09:00 AM AMBULATORY - MEDICINE [facility] September 16, 2024 10:15 AM [facility] - [place]IC[place] [facility] Sep 30, 2024 09:00 AM AMBULATORY - MEDICINE [facility] Oct 14, 2024 09:00 AM AMBULATORY - MEDICINE [facility] Oct 29, 2024 02:00 PM AMBULATORY - PS[facility]CHIATRY [facility] Nov 04, 2024 09:00 AM AMBULATORY - MEDICINE [facility] Nov 11, 2024 01:00 PM AMBULATORY - MEDICINE [facility] Nov 17, 2024 02:40 PM AMBULATORY - MEDICINE [facility] Nov 26, 2024 09:00 AM AMBULATORY - MEDICINE [facility] Nov 26, 2024 09:40 AM AMBULATORY - MEDICINE [facility] Dec 08, 2024 01:40 PM AMBULATORY - MEDICINE [facility] Dec 17, 2024 09:00 AM AMBULATORY - MEDICINE [facility] Active, Pending, and Scheduled Orders This section includes a listing of several types of active, pending, and scheduled orders, including clinic medications orders, diagnostic test orders, procedure orders and consult orders; where the start date of the order is 45 days before the date of the Encounter or 45 days after the date of theEncounter. The data comes from all [place] treatment facilities. Test Date/Time Test Type Test Details Facility Name August 21, 2024 02:41 PM Consult Order [facility] [id number] Cons Professor Of Mechanical Engineering's Choice [facility] Lab Results: +/- 30 days of the encounter This section includes the Chemistry and Hematology Lab Results on record with [place] for the patient. Radiology Reports and Pathology Reports are provided separately, in subsequent sections. Lab Results This section contains the Chemistry/Hematology Results that were resulted 30 days before or 30 daysafter the date of the Encounter. Date/Time Source Result Type Result - Unit Interpretation Reference Range Specimen Type Comment Aug 13, 2024 08:05 AM [facility] B12 SERUM Specimen Type: SERUM No comment entered. Ordering Provider: EMMA MULLEN Report Released Date/Time: Aug 11, 2024 10:10 AM Reporting Lab: [place] [facility] [address] [place] [address] Performing Lab: [place] [facility] [address] [place] [address] B12 761 pg/mL 213-816 Aug 13, 2024 08:05 AM [facility] FOLATE (PB) SERUM Specimen Typ e: SERUM No comment entered. Ordering Provider: EMMA MULLEN Report Released Date/Time: Aug 11, 2024 10:10 AM Reporting Lab: [place] [facility] [address] [place] [address] Performing Lab: [place] [facility] [address] [place] [address] FOLATE (PB) 12.3 ng/mL 7-20 Aug 13, 2024 08:05 AM [facility] HGA1C BLOOD Specimen Type: BLOOD No comment entered. Ordering Provider: EMMA MULLEN Report Released Date/Time: Aug 11, 2024 10:10 AM Reporting Lab: [place] [facility] [address] [place] [address] Performing Lab: [place] [facility] [address] [place] [address] HGA1C 5.2 4.0-6.0 Aug 13, 2024 08:05 AM [facility] CHOLESTEROL PANEL (PB) PLASMA Specimen Type: P LASMA No comment entered. Ordering Provider: EMMA MULLEN Report Released Date/Time: Aug 11, 2024 10:10 AM Reporting Lab: [place] [facility] [address] [place] [address] Performing Lab: [place] [facility] [address] [place] [address] CHOLESTEROL 138 mg/dL 0-200 TRIGLYCERIDE 72 mg/dL 0-150 CALCULATED LDL 88.3 mg/dL HDL(New) 35.3 mg/dL L >40 HDL % OF TOTAL CHOLESTEROL (PB) 25.6 >25 Aug 13, 2024 08:05 AM [facility] MAGNESIUM PLASM A Specimen Type: PLASMA No comment entered. Ordering Provider: EMMA MULLEN Report Released Date/Time: Aug 11, 2024 10:10 AM Reporting Lab: [place] [facility] [address] [place] [address] Performing Lab: [place] [facility] [address] [place] [address] MAGNESIUM 2.32 mg/dL 1.6-2.6 Aug 13, 2024 08:05 AM [facility] VITAMIN D, 25-HYDROXY SERUM Specimen Type: SE RUM No comment entered. Ordering Provider: EMMA MULLEN Report Released Date/Time: Aug 11, 2024 10:10 AM Reporting Lab: [place] [facility] [address] [place] [address] Performing Lab: [place] [facility] [address] [place] [address] VITAMIN D, 25-HYDROXY 40.8 ng/mL 30-96 Aug 13, 2024 08:05 AM [facility] TSH (MA-PB) SERUM Specimen Typ e: SERUM No comment entered. Ordering Provider: EMMA MULLEN Report Released Date/Time: Aug 11, 2024 10:10 AM Reporting Lab: [place] [facility] [address] [place] [address] Performing Lab: [place] [facility] [address] [place] [address] TSH 2.309 u[IU]/mL 0.47-5 Aug 13, 2024 08:05 AM [facility] TESTOSTERONE, TOTAL (PB-MA) SERUM Specimen Ty pe: SERUM No comment entered. Ordering Provider: EMMA MULLEN Report Released Date/Time: Aug 12, 2024 01:35 PM Reporting Lab: [place] [facility] [address] [place] [address] Performing Lab: [place] [facility] [address] [place] [address] TESTOSTERONE, TOTAL (PB-MA) 174 ng/dL L 22 1.0-871.0 Aug 13, 2024 08:05 AM [facility] CBC BLOOD Specimen Type: BLOOD No comment entered. Ordering Provider: EMMA MULLEN Report Released Date/Time: Aug 11, 2024 10:10 AM Reporting Lab: [place] [facility] [address] [place] [address] Performing Lab: [place] [facility] [address] [place] [facility] WBC 5.2 10*3/uL 3.6-11.2 RBC 5.25 10*6/uL [...] 0. 00-0.05 Aug 13, 2024 08:05 [facility]ENS[facility] METABOLIC PANEL PLASMA Specimen Type: PLASMA No comment entered. Ordering Provider: EMMA MULLEN Report Released Date/Time: Aug 11, 2024 10:10 AM Reporting Lab: [facility] [address] [facility] [address] Performing Lab: [facility] [address] [facility] [address] CREATININE 1.06 mg/dL 0.7-1.3 UREA NITROGEN 11 [...] PM 98.3 88 118/68 18 251.6 34 [facility] Social History: Smoking Status (Most current) and Tobacco Use (All prior to encounter date) This section includes the most current, and the historical, smoking and tobacco- related health factors from the [place] facility where the Encounter took place. Current Smoking Status This section includes the most current smoking, or tobacco-related health factor, from the [place] facility where the Encounter took place. Date/Time Current Smoking Status Comment Rosetta ity Oct 23, 2023 10:00 AM [facility]-TO[facility]ACCO NEVER USED [facility] Tobacco Use History This section includes a history of the smoking, or tobacco-related health factors, that were collected on or before the date of the Encounter. The data comes from the [place] facility where the Encounter took place. Date/Time Smoking Status/Tobacco Use Comment F acility Oct 29, 2022 10:00 AM [place]-TOBACCO NEVER USED [facility] Radiology Reports: +/- 30 days of [...] the Encounter. The data comes from all [place] treatment facilities. Date/Time Radiology Report Provider Source August 27, 2024 11:08 AM SPINE THORACIC 2 V IEWS: SHARI SUAZO ADRIANNE [id number] -1985 M Exm Date: AUGUST 27, 2024@11:08 Req Phys: JYOTSNA BLACKMON Loc: [facility] (Req'g Loc) Img Loc: [facility] [place] Service: [place] [address] (Case [id number] COMPLETE) SPINE THORACIC 2 VIEWS (RAD Detailed) CPT:50850 Reason for Study: recent trauma Clinical History: Report Status: Verified Date Reported: AUGUST 27, 2024 Date Verified: AUGUST 27, 2024 Automobiles Salesperson E-Sig: Report: EXAM: Thoracic spine AP, lateral, and lateral swimmer's views. FINDINGS: There is no acute fracture or dislocation. There are very mild degenerative changes. There is very mild scoliosis. Impression: 1. No evidence of acute osseous injury involving the thoracic spine. 2. Very mild degenerative changes. 3. Very mild scoliosis. Primary Interpreting Staff: Alexys Harris M.D., Radiology ([employer] Salesperson, no e-sig) /ALEXYS VERA [facility] August 27, 2024 11:08 AM SPINE LUMBOSACRAL 2 OR 3 VIEWS: SHARI SUAZO [id number] -1985 M Exm Date: AUGUST 27, 2024@11:08 Req Phys: JYOTSNA BLACKMON Pat Loc: [facility] (Req'g Loc) Img Loc: [facility] [place] Service: [place] [address] (Case [id number] COMPLETE) SPINE LUMBOSACRAL 2 OR 3 VIEWS (RAD Detailed) CPT:54959 Reason for Study: recent trauma Clinical History: Report Status: Verified Date Reported: AUGUST 27, 2024 Date Verified: AUGUST 27, 2024 Autom[employer] Salesperson E-Sig: Report: EXAM: Lumbar spine AP, lateral, [...] Primary Interpreting Staff: Alexys Harris M.D., Radiology ([employer] Salesperson, no e-sig) /ALEXYS VERA [facility] August 27, 2024 11:08 AM SPINE CERVICAL MIN 4 OR 5 VIEWS: SHARI SUAZO ROSEANNE [id number] -1985 M Exm Date: AUGUST 27, 2024@11:08 Req Phys: JYOTSNA BLACKMON Pat Loc: [facility] (Req'g Loc) Img Loc: [facility] [place] Service: [place] [address] (Case [id number] COMPLETE) SPINE CERVICAL MIN 4 OR 5 VIEWS (RAD Detailed) CPT:14997 Reason for Study: recent trauma Clinical History: Report Status: Verified Date Reported: AUGUST 27, 2024 Date Verified: AUGUST 27, 2024 [employer] Salesperson E-Sig: Report: EXAM: Cervical spine AP, lateral, [...] Primary Interpreting Staff: Alexys Harris M.D., Radiology ([employer] Salesperson, no e-sig) /ALEXYS VERA [facility] Encounter Notes: All associated encounter notes This section contains the clinical notes associated to the Encounter. Date/Time Encounter Note(s) Provider Source Aug 12, 2024 01:45 PM ACCOUNTING OF DISC LOSURES NOTE: LOCAL TITLE: STATE PRESCRIPTION DRUG MONITORING PROGRAM STANDARD TITLE: ACCOUNTING OF DISCLOSURES NOTE DATE OF NOTE: AUG 12, 2024@13:45:37 ENTRY DATE: AUG 12, 2024@13:45:37 AUTHOR: EMMA MULLEN EXP COSIGNER: URGENCY: STATUS: COMPLETED This PDMP query was submitted by Emma Mullen. The clinical justification for this PDMP query is to review controlled substances prescribed outside of the [facility], and any additional information that may become available, as an important component of standard clinical care, and in accordance with [facility] policy. Patient information was shared with the PDMP Appriss Morse. No prescription(s) for controlled substances outside the [facility] were found in the last 90 days. /adrián/ EMMA MULLEN MD Signed: 08/12/2024 13:47 EMMA MULLEN [facility] Aug 12, 2024 01:06 PM PRIMARY CARE PROGR ESS NOTE: LOCAL TITLE: PRIMARY CARE CLINIC PROGRESS NOTE PB STANDARD TITLE: PRIMARY CARE PROGRESS NOTE DATE OF NOTE: AUG 12, 2024@13:06 ENTRY DATE: AUG 12, 2024@13:06:50 AUTHOR: EMMA MULLENIGNER: URGENCY: STATUS: COMPLETED Seymour is presenting to the clinic today for his/her Telehealth appointment as scheduled. was assured that the Telehealth visit is a private, confidential clinical encounter and will not be recorded. The Telehealth process, procedures and expectations were explained to the patient, allowing time to voice any concerns. voiced understanding and consented to the Clinic visit. The visit proceeded without difficulty. DATE & TIME:Jul@12:59 CHIEF COMPLAINT needs labs , annual exam, changing pact teams HISTORY OF PRESENT ILLNESS: Patient is changing PACT team's changing from Dr Pacheco;'s echo team to me . 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 Blackmon Adult Education Professional, Dr. 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 [place] retired from [employer] currently as of 05/2024 Tobacco: denies Alcohol: denies Other: denies FAMILY HISTORY: no known family hx of colon or prostate cancer paternal grandmother and maternal grandmother had Alzheimer's mother has Braxton's of the thyroid sister had her parathyroid removed Father- DM2, skin cancer HISTORY: [employer] 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 Indication: FOR SLEEP 2) CETIRIZINE HCL 10MG TAB TAKE ONE TABLET BY MOUTH ONCE A DAY ACTIVE (S) Indication: FOR ALLERGY SYMPTOMS 3) ESCITALOPRAM OXALATE 20MG TAB TAKE ONE-HALF TABLET BY MOUTH ACTIVE (S) ONCE A DAY DOSE DECREASE Indication: FOR DEPRESSION 4) FLUTICASONE PROP 50MCG 120D NASAL INHL INSTILL ONE TO TWO IN ACTIVE (S) NOSTRIL(S) TWICE A DAY (MUST BE USED DIRECTED FOR MINIMUM OF 21 DAYS TO PROVIDE ADEQUATE BENEFITS) 5) HYDROXYZINE HCL 25MG TAB TAKE ONE TABLET BY MOUTH THREE ACTIVE (S) TIMES A DAY NEEDED *MAY CAUSE DROWSINESS* Indication: FOR ANXIETY 6) OLOPATADINE HCL 665MCG/SPRAY NASAL SPRAY USE ONE TO TWO ACTIVE (S) SPRAYS INTO EACH NOSTRIL TWICE A DAY 7) ROPINIROLE HCL 4MG TAB TAKE ONE TABLET BY MOUTH AT BEDTIME ACTIVE (S) Indication: FOR RESTLESS LEG SYNDROME 8) SINUS RINSE NEILMED PKT USE 1 PACKET NOSTRIL(S) ONCE A DAY ACTIVE Indication: FOR NASAL CONGESTION Active Non-VA Medications Status 1) Non-VA CEPHALEXIN 500MG CAP 500MG BY MOUTH EVERY 6 HOURS ACTIVE Indication: FOR SKIN OR SOFT TISSUE INFECTION 9 Total Medications REVIEW OF SYSTEMS: Review of Systems Systemic: Denies fatique, fever, chills, or weight loss CV: Denies chest pain, palpitations Pulm: Denies hemoptysis, wheezing GI: Denies constipation, bloody stools. Musculoskeletal: Denies swelling Neuro: Denies slurred speech Skin: Denies abnormal lesions, denies any new rashes PSYCH: Denies SI/HI PHYSICAL ASSESSMENT: VITAL SIGNS Pulse: 88 (08/12/2024 12:51) Blood Pressure: 118/68 (08/12/2024 12:51) Respiratory Rate: 18 (08/12/2024 12:51) Temperature: 98.3 F [36.8 C] (08/12/2024 12:51) Weight: 251.6 lb [114.12 kg] (08/12/2024 12:51) Height: 72 in [182.9 cm] (05/28/2024 14:18) Pain: 5 (05/28/2024 14:18) GENERAL: Appears in no acute distress. HEENT: Conjunctiva are clear without exudate or gross hemorrhage. Sclera nonicteric. EOM are intact. Ear canals without discharge, Tympanic membrane is without acute changes. Oropharynx is normal in appearance and without swelling or exudate NECK: appearance is normal and without gross masses CARDIAC: Regular rate and rhythm. No JVD RESPIRATORY: CTA bilaterally no rhonchi wheezing or rails. Nonlabored respirations GI: Abdomen normal bowel sounds MUSCULOSKELETAL: No joint effusions, moving extremiteis without difficulty SKIN: Appropriate color for ethnicity. NEUROLOGICAL: The is alert and oriented without distress. Gait is at baseline PSYCHOLOGICAL: Appropriate mood and affect. No suicidal or homicidal ideation. 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 2) Low Back Pain ([facility] [id number]) 3) Neck Pain ([facility] [id number]) 4) Posttraumatic stress disorder 5) Insomnia ([facility] [id number]) 6) Vitamin D deficiency 7) Obstructive sleep apnea 8) Chronic sinusitis 9) Osteoarthritis of right knee joint 10) Restless legs syndrome 11) Derangement of lateral meniscus 12) Hypotestosteronism 13) Steatosis of liver -draw annula labs today -start with physical therapy for low back and neck pain xrays today of neck and back Continue seeing manager care., Patient says sometimes he gets radiculopathy in his neck and his back, we will see how physical therapy goes if continues to persist discussed options of going to see a chronic pain specialist. There are some form of procedure to alleviate pain. -restart temns units unit, changed from meloxicam to etodolac use as needed, add tylenol, and add topical diclofenac low dose as needed -restless leg meds not working, sees Dr Valente, I recommend to discucc with him regarding recommendations as he titrates pscyhe meds, aslo that he is not sleeping well insomnia -on testosterone -Dr Paniagua is giving him a temporary handicap placard, wants one from me , declined by me for a permanet one, becuase he does not meet definition of permant disability Right knee painrequesting to see Dr. [facility] from [facility] is last orthopedic he is hoping to get maybe some kind of different injections or cartilage transplants etc. Health Maintenance: Discussed preventative health to include diet and exercise including immunizations. Stable. Discussed medications with patient; med rec completed. Continue current regimen as prescribed by PCP and specialists. RTC as needed if developing any new or worsening symptoms. Please notify PACT with medication changes or for orders coordination as needed if seen by a specialist in the future. Discussed with patient that in the event of community imaging / testing being ordered in the future, once the imaging / testing has been completed, please notify PACT of completion at outside facility if not called with results within 1 week by a [facility] PACT member; this is due to intermittent lapses in notification of imaging completion within CPRS. -Follow-up with me every July for annual labs and annual exam -Follow-up with me as needed. All questions answered; agrees to plan of care. Follow up as listed above, annually, and as needed. Keep all appointments. Medications Reconciled. Total time spent in medical discussion with patient was 59 minutes. Total time spent on this visit was 59 minutes. /es/ EMMA MULLEN MD Signed: 08/12/2024 13:59 EMMA MULLEN LA FONTAINEFred [facility]
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
--- OUTSIDE RECORDS SUMMARY | 2024-08-28 04:00 | XMS_ITS | Encounter Summary ---
Author Name [facility] [place] [facility] [facility] [place] Address [address] [place] [address] Care Team Providers Care Obstetrics Tech Name Role Phone YOMAIRA MULLEN Primary [...] Rivera's Name Patient's Relationship to Policy Rivera [facility] [address] [facility] May 31, 2024 SELECT [id number] [phone] TRUMANJOSEPH DE LA CRUZ Faustino PATIENT Selected Encounter This section includes the information on record at [place] for the Encounter. Date/Time Encounter Type Encounter Description Reason Provider Source August 28, 2024 09:00 AM THERAPEUTIC EXERCISES PHYSICAL THERAPY ICD-10-CM M54.2 Cervicalgia GARY SEWELL A E Encounter Template Text not used by [facility] Assessments - Encounter Diagnoses This section includes the primary and secondary diagnoses documented for the Encounter. Date/Time Primary/Secondary Diagnosis Diagnosis Name Provider Source August 28, 2024 12:41 PM PRIMARY Cervicalgia [facility] August 28, 2024 12:41 PM SECONDARY Low back pain, unspecified [facility] Plan of Treatment: Future Appointments (+ 6 months) and Future Tests (+/- 45 days) The Plan of Treatment section includes future care activities for the patient [facility] This section includes future appointments and future orders which are active, pending or scheduled. Future Appointments This section includes appointments that were scheduled to occur 6 months from the date of the Encounter, up to a maximum of 20 appointments. The data comes from all [place] [facility]. Appointment Date/Time Appointment Type Appointme nt Facility Name September 16, 2024 10:15 AM AMBULATORY - MEDICINE [facility] Sep 30, 2024 09:00 AM AMBULATORY - MEDICINE [facility] Oct 14, 2024 09:00 AM AMBULATORY - MEDICINE [facility] Oct 29, 2024 02:00 PM AMBULATORY - PSYCHIATRY [facility] Nov 04, 2024 09:00 AM AMBULATORY - MEDICINE [facility] Nov 11, 2024 01:00 PM AMBULATORY - MEDICINE [facility] Nov 17, 2024 02:40 PM AMBULATORY - MEDICINE [facility] Nov 26, 2024 09:00 AM AMBULATORY - MEDICINE [facility] Nov 26, 2024 09:40 AM AMBULATORY - MEDICINE [facility] Dec 08, 2024 01:40 PM AMBULATORY - MEDICINE [facility] Dec 17, 2024 09:00 AM AMBULATORY - MEDICINE [facility] Active, Pending, and Scheduled Orders This section includes a listing of several types of active, pending, and scheduled orders, including clinic medications orders, diagnostic test orders, procedure orders and consult orders; where the start date of the order is 45 days before the date of the Encounter or 45 days after the date of theEncounter. The data comes from all [facility]. Test Date/Time Test Type Test Details Facility Name August 21, 2024 02:41 PM Consult Order COMMUNITY CARE-PODIATRY 657A4 Cons [place] [facility] Oct 06, 2024 08:24 AM Consult Order PROSTHETIC S REQUEST - FLOW SHOES AND INSERTS [id number] Cons [place] [facility] Lab Results: +/- 30 days of the encounter This section includes the Chemistry and Hematology Lab Results on record with [place] for the patient. Radiology Reports and Pathology Reports are provided separately, in subsequent sections. Lab Results This section contains the Chemistry/Hematology Results that were resulted 30 days before or 30 daysafter the date of the Encounter. Date/Time Source Result Type Result - Unit Interpretation Reference Range Specimen Type Comment Aug 13, 2024 08:05 AM [facility] [facility] [place] [facility] B12 SERUM Specimen Type: SERUM No comment entered. Ordering Provider: YOMAIRA MULLEN Report Released Date/Time: Aug 11, 2024 10:10 AM Reporting Lab: [place] [facility] [address] [place] [address] Performing Lab: [place] [facility] [address] [place] [address] B12 761 pg/mL 213-816 Aug 13, 2024 08:05 AM [facility] [place] [place] [facility] FOLATE (PB) SERUM Specimen Typ e: SERUM No comment entered. Ordering Provider: YOMAIRA MULLEN Report Released Date/Time: Aug 11, 2024 10:10 AM Reporting Lab: [place] [facility] [address] [place] [address] Performing Lab: [place] [facility] [address] [place] [address] FOLATE (PB) 12.3 ng/mL 7-20 Aug 13, 2024 08:05 AM [facility] [place] [facility] HGA1C BLOOD Specimen Type: BLOOD No comment entered. Ordering Provider: YOMAIRA MULLEN Report Released Date/Time: Aug 11, 2024 10:10 AM Reporting Lab: [place] [facility] [address] [place] [address] Performing Lab: [place] [facility] [address] [place] [address] HGA1C 5.2 4.0-6.0 Aug 13, 2024 08:05 AM [facility] [place] [facility] MAGNESIUM PLASM A Specimen Type: PLASMA No comment entered. Ordering Provider: YOMAIRA MULLEN Report Released Date/Time: Aug 11, 2024 10:10 AM Reporting Lab: [place] [facility] [address] [place] [address] Performing Lab: [place] [facility] [address] [place] [address] MAGNESIUM 2.32 mg/dL 1.6-2.6 Aug 13, 2024 08:05 AM [facility] CHOLESTEROL PANEL (PB) PLASMA Specimen Type: P LASMA No comment entered. Ordering Provider: YOMAIRA MULLEN Report Released Date/Time: Aug 11, 2024 10:10 AM Reporting Lab: [place] [facility] [address] [place] [address] Performing Lab: [place] [facility] [address] [place] [address] CHOLESTEROL 138 mg/dL 0-200 TRIGLYCERIDE 72 mg/dL 0-150 CALCULATED LDL 88.3 mg/dL HDL(New) 35.3 mg/dL L >40 HDL % OF TOTAL CHOLESTEROL (PB) 25.6 >25 Aug 13, 2024 08:05 AM [facility] VITAMIN D, 25-HYDROXY SERUM Specimen Type: SE RUM No comment entered. Ordering Provider: YOMAIRA MULLEN Report Released Date/Time: Aug 11, 2024 10:10 AM Reporting Lab: [place] [facility] [address] [place] [id number] Performing Lab: [place] [facility] [address] [place] [address] VITAMIN D, 25-HYDROXY 40.8 ng/mL 30-96 Aug 13, 2024 08:05 AM [facility] TSH (MA-PB) SERUM Specimen Typ e: SERUM No comment entered. Ordering Provider: YOMAIRA MULLEN Report Released Date/Time: Aug 11, 2024 10:10 AM Reporting Lab: [place] [facility] [address] [place] [address] Performing Lab: [place] [facility] [address] [place] [address] TSH 2.309 u[IU]/mL 0.47-5 Aug 13, 2024 08:05 AM [facility] TESTOSTERONE, TOTAL (PB-MA) SERUM Specimen Ty pe: SERUM No comment entered. Ordering Provider: YOMAIRA MULLEN Report Released Date/Time: Aug 12, 2024 01:35 PM Reporting Lab: [place] [facility] [address] [place] [address] Performing Lab: [place] [facility] [address] [place] [address] TESTOSTERONE, TOTAL (PB-MA) 174 ng/dL L 22 1.0-871.0 Aug 13, 2024 08:05 AM [facility] CBC BLOOD Specimen Type: BLOOD No comment entered. Ordering Provider: YOMAIRA MULLEN Report Released Date/Time: Aug 11, 2024 10:10 AM Reporting [facility] [address] [place] [address] Performing [facility]: [facility] [address] [facility] [place] [address] WBC 5.2 10*3/uL 3.6-11.2 RBC 5.25 10*6/uL [...] 0. 00-0.05 Aug 13, 2024 08:05 AM [facility] COMPREHENSIVE METABOLIC PANEL PLASMA Specimen Type: PLASMA No comment entered. Ordering Provider: YOMAIRA MULLEN Report Released Date/Time: Aug 11, 2024 10:10 AM Reporting [facility] [address] [facility] [place] [address] Performing Lab: [place] [facility] [address] [place] [address] CREATININE 1.06 mg/dL 0.7-1.3 UREA NITROGEN 11 [...] and tobacco- related health factors from the [place] facility where the Encounter took place. Current Smoking Status This section includes the most current smoking, or tobacco-related health factor, from the [place] facility where the Encounter took place. Date/Time Current Smoking Status Comment Facil ity Oct 23, 2023 10:00 AM PA-TOBACCO NEVER USED [facility] Tobacco Use History This section includes a history of the smoking, or tobacco-related health factors, that were collected on or before the date of the Encounter. The data comes from the [place] facility where the Encounter took place. Date/Time Smoking Status/Tobacco Use Comment F acfunmi Oct 29, 2022 10:00 AM PA-TOBACCO NEVER USED [facility] Radiology Reports: +/- 30 days of the [...] the Encounter. The data comes from all [place] treatment facilities. Date/Time Radiology Report Provider Source August 27, 2024 11:08 AM SPINE LUMBOSACRAL 2 OR 3 VIEWS: SHARI SUAZO [id number] -1985 M Exm Date: AUGUST 27, 2024@11:08 Req Phys: JYOTSNA ROMANO Loc: [facility] (Req'g Loc) Img Loc: PB-X[facility] [place] Service: [place] [address] (Case [id number] COMPLETE) SPINE LUMBOSACRAL 2 OR 3 VIEWS (RAD Detailed) CPT:68933 Reason for Study: recent trauma Clinical History: Report Status: Verified Date Reported: AUGUST 27, 2024 Date Verified: AUGUST 27, 2024 News Content Specialist E-Sig: Report: EXAM: Lumbar spine AP, lateral, [...] Primary Interpreting Staff: Alexys Harris M.D., Radiology (News Content Specialist, no e-sig) /ALEXYS VERA [place] [facility] August 27, 2024 11:08 AM SPINE THORACIC 2 V IEWS: SHARI SUAZO [id number] -1985 M Exm Date: AUGUST 27, 2024@11:08 Req Phys: JYOTSNA ROMANO Loc: [facility] (Req'g Loc) Img Loc: [facility] [place] Service: [place] [address] (Case [id number] COMPLETE) SPINE THORACIC 2 VIEWS (RAD Detailed) CPT:82874 Reason for Study: recent trauma Clinical History: Report Status: Verified Date Reported: AUGUST 27, 2024 Date Verified: AUGUST 27, 2024 News Content Specialist E-Sig: Report: EXAM: Thoracic spine AP, lateral, and lateral swimmer's views. FINDINGS: There is no acute fracture or dislocation. There are very mild degenerative changes. There is very mild scoliosis. Impression: 1. No evidence of acute osseous injury involving the thoracic spine. 2. Very mild degenerative changes. 3. Very mild scoliosis. Primary Interpreting Staff: Alexys Harris M.D., Radiology (News Content Specialist, no e-sig) /[facility] August 27, 2024 11:08 AM SPINE CERVICAL MIN 4 OR 5 VIEWS: SHARI SUAZO [id number] -1985 M Exm Date: AUGUST 27, 2024@11:08 Req Phys: JYOTSNA ROMANO Loc: [facility] (Req'g Loc) Img Loc: [facility] [place] Service: [place] [address] (Case [id number] COMPLETE) SPINE CERVICAL MIN 4 OR 5 VIEWS (RAD Detailed) CPT:01678 Reason for Study: recent trauma Clinical History: Report Status: Verified Date Reported: AUGUST 27, 2024 Date Verified: AUGUST 27, 2024 News Content Specialist E-Sig: Report: EXAM: Cervical spine AP, lateral, [...] Primary Interpreting Staff: Alexys Harris M.D., Radiology (News Content Specialist, no e-sig) /[facility] [place] [facility] Encounter Notes: All associated encounter notes This section contains the clinical notes associated to the Encounter. Date/Time Encounter Note(s) Provider Source August 28, 2024 09:08 AM PHYSICAL THERAPY C ONSULT: LOCAL TITLE: PHYSICAL THERAPY CONSULTS STANDARD TITLE: PHYSICAL THERAPY CONSULT DATE OF NOTE: AUGUST 28, 2024@09:08 ENTRY DATE: AUGUST 28, 2024@09:09:07 AUTHOR: KAL SEWELL COSIGNER: URGENCY: STATUS: COMPLETED Diagnosis: Low back pain, unspecified; cervicalgia Subjective Patient presents with complaints of low back pain. He reports that he hurt his back in 2016 when he was in [place] while in the . He also reports a history of neck pain since being in the . He reports feeling of needing to pop his neck and has the occasional sharp pain. He reports increased low back pain with forward bending. He does report intermittent numbness in bilateral hand numbness with sleeping, and intermittent posterior LE numbness. He denies numbness in saddle region or loss of control of bowel/bladder. Patient's chief complaint is neck and low back pain Pain rated currently as neck 3/10, low back 5/10; At worst neck 8/10, low back 8/10; At best neck 3/10, low back 3/10 Location of pain is neck and low back Discomfort is described as stiff, aching, sharp Symptoms increase with forward bending, prolonged positioning, transitional movements and decrease with chiropractic, medication, Patient's goal is to decrease his pain Patient demonstrates fair potential to reach goal Patient currently lives [facility] [place] Objective Oswestry Disability Index score 30% Examination Posture: Patient demonstrates forward head, rounded shoulders, Gait: antalgic Neurological - Light touch: UE and LE unremarkable - Deep tendon reflexes: UE and LE unremarkable Upon palpation the patient tenderness is noted in cervical paraspinals, suboccipital, thoracolumbar paraspinals, right glutes The following active cervical ROM observed in percent Flexion 75% Extension 50% Rotation Left 75% Right 75% Lateral flexion Left 75% Right 75% The following manual muscle tests on a scale of 5 Shoulder Abduction Left 5/5 Right 5/5 Shoulder Flexion Left 5/5 Right 5/5 Shoulder Internal Rotation Left 5/5 Right 5/5 Shoulder External Rotation Left 5/5 Right 5/5 Elbow Extension Left 5/5 Right 5/5 Elbow Flexion Left 5/5 Right 5/5 Wrist extension Left 5/5 Right 5/5 Finger abduction Left 5/5 Right 5/5 The following muscle lengths observed based on active cervical ROM upper trapezius moderate levator scapulae moderate Cervical Special tests: -Alar ligament: negative -Transverse ligament: negative -Vertebral Artery: negative -Spurlings: positive -Traction: symptom relief -Cervical flexion test: positive The following thoracolumbar active ROM % observed Flexion 75% Extension 50% p! Lateral flexion Left 50% Right 50% Rotation Left 75% Right 75% The following manual muscle tests on scale of 5 hip abduction Left 4/5 Right 4/5 hip adduction Left 4/5 Right 4/5 hip flexion Left 4/5 Right 4/5 knee flexion Left 5/5 Right 5/5 knee extension Left 5/5 Right 5/5 dorsiflexion Left 5/5 Right 5/5 Short sitting position used with knee flexion and hip adduction/abduction manual muscle tests. The following muscle lengths observed in Lower Extremity hamstrings moderate piriformis moderate hip adductors moderate Special Tests: posterior quadrant negative SLR hamstring tightness Slump negative YOVANA negative FADIR negative hip scour negative Patient Education: Patient was educated on precautions, expected outcomes, and a home exercise program. [place] goals were established and patient consents to the plan of care. Dry Needling Informed Consent: Patient was informed on the risks and benefits of dry needling (DN)as well as alternative treatments. Patient was educated on the risks for the procedure which include possible pneumothorax, bruising, infection and/or nerve injury. Patient was also educated on positive effects of DN such as releasing the trigger point, increasing flexibility of muscles, decreasing symptoms of pain and increasing function of the overall muscle. Patient was instructed to inform the therapist whether he/she is on an anticoagulant or has another blood disorder so that precautions can be taken. Patient was informed about other potential alternatives to treatment besides DN. Patient was also educated to inform the therapist of the sensations he/she experiences during the dry needling process, such as cramping,aching,sharpness, or numbness and tingling. Patient provided verbal consent for DN to be performed. Location (area prepared according to Infection Control Policy): right gluteus medius # [place] used in treatment:2 [place] disposed of according to Infection control Policy. # [place] disposed of in appropriate sharps receptacle:2 Education: Patient was educated to drink plenty of water after therapy treatment and that they may experience soreness for the next 10-12 hours. Patient was also instructed to continue with normal daily activities for the remainder of the day, however, not to engage in activities that will overstress the body beyond the patient's normal limits. Therapeutic exercises: -single knee to chest 30 seconds -lower trunk rotation 10x -piriformis stretch 30 seconds -active hamstring stretch 10x -supine chin tuck 10x -cervical rotation (demonstrated for HEP) Assessment Patient presents with the above findings and is a good candidate for physical therapy services. The patient was instructed in a home program (demo and visual aide) and demonstrated understanding. The patient would benefit from skilled Physical Therapy to address pain, soft tissue mobility, core and lower extremity strength, cervical/thoracolumbar range of motion, functional mobility deficits, and ADls. Complexity is moderate with stable presentation. Plan Short term goals to be achieved in 4 weeks: 1) Patient will be (I) with home exercise. 2) Patient will decrease pain complaints by 25% or more within to improve ADL performance. 3) Patient will increase LE strength by 1/2 grade or more overall within in order to decrease pain and improve ADLs. terminal block assembler goals to be achieved in 8 weeks: 1) Patient will have WNL cervical and thoracolumbar ROM to decrease pain and improve functional mobility. 2) Patient will increase LE strength by +1 Manual Muscle Grade or more overall. 3) Patient will be decrease his Oswestry score to 19% or less for improved thoracolumbar function. (MCID 11 points) Treatment Plan: Physical Therapy plan of care 1 follow-up visit in 2 months Physical therapy may include: Patient education, therapeutic exercise, therapeutic activities, manual therapy, neuromuscular reeducation, dry needling, and modalities as indicated. Total Treatment Time: 60 minutes Dry needlin minutes Therapeutic exercises 15 minutes Visit 1 of 2 /adrián/ Kal Sewell PT, DPT [place] [facility] Signed: 08/28/2024 12:43 KAL SEWELL [facility]
--- OUTSIDE RECORDS SUMMARY | 2024-09-30 04:00 | XMS_ITS | Encounter Summary ---
Author Name [facility] Address [address] [place] [address] Care Team Providers Care Non Destructive Evaluation Manager Name Role Phone YOMAIRA MULLEN Primary Care [...] Rivera's Name Patient's Relationship to Policy Rivera [facility] 2024 [facility] WNR May 31, 2024 [facility] [id number] [facility]UM[facility] Faustino PATIENT Selected Encounter This section includes the information on record at [place] for the Encounter. Date/Time Encounter Type Encounter Description Reason Provider Source Sep 30, 2024 09:00 AM [facility]OPRACT [facility] 3[facility]IC[facility] HELPER ICD-10-CM M99.01 Segmental and somatic dysfunction of cervical region JYOTSNA ROMANO Encounter Template Text not used by [facility] Assessments - Encounter Diagnoses This section includes the primary and secondary diagnoses documented for the Encounter. Date/Time Primary/Secondary Diagnosis Diagnosis Name Provider Source Sep 30, 2024 08:57 AM PRIMARY Segmental and somatic dysfunction of cervical region JYOTSNA ROMANO [facility] Sep 30, 2024 08:57 AM SECONDARY Cervicalgia J[facility]OT[facility]NA ROMANO [facility] Sep 30, 2024 08:57 AM SECONDARY Oth intvrt disc degen, lumbosacr w discog bck & lw extrm pn JYOTSNA ROMANO [facility] Sep 30, 2024 08:57 AM SECONDARY Pain in thoracic spine [facility] Sep 30, 2024 08:57 AM SECONDARY Segmental and somatic dysfunction of lumbar region [facility] Sep 30, 2024 08:57 AM SECONDARY Segmental and somatic dysfunction of pelvic region [facility] Sep 30, 2024 08:57 AM SECONDARY Segmental and somatic dysfunction of [facility] of Treatment: Future Appointments (+ 6 months) and Future Tests (+/- 45 days) The Plan of Treatment section includes future care activities for the patient from all [facility] This section includes future appointments and future orders which are active, pending or scheduled. Future Appointments This section includes appointments that were scheduled to occur 6 months from the date of the Encounter, up to a maximum of 20 appointments. The data comes from all [place] treatment facilities. Appointment Date/Time Appointment Type Appointme nt Facility Name Oct 14, 2024 09:00 AM AMBULATORY - MEDICINE [facility] Oct 29, 2024 02:00 PM AMBULATORY - PSYCHIATRY [facility] Nov 04, 2024 09:00 AM AMBULATORY - MEDICINE [facility] Nov 11, 2024 01:00 PM AMBULATORY - MEDICINE [facility] Nov 17, 2024 02:40 PM AMBULATORY - MEDICINE [facility] Nov 26, 2024 09:00 AM AMBULATORY - MEDICINE [facility] Nov 26, 2024 09:40 AM AMBULATORY - MEDICINE [facility] Dec 08, 2024 01:40 PM AMBULATORY - MEDICINE [facility] Dec 17, 2024 09:00 AM AMBULATORY - MEDICINE [facility] Active, Pending, and Scheduled Orders This section includes a listing of several types of active, pending, and scheduled orders, including clinic medications orders, diagnostic test orders, procedure orders and consult orders; where the start date of the order is 45 days before the date of the Encounter or 45 days after the date of theEncounter. The data comes from all [place] treatment facilities. Test Date/Time Test Type Test Details Facility Name August 21, 2024 02:41 PM Consult Order COMMUNITY CARE-PODIATRY [id number] Cons [facility] Oct 06, 2024 08:24 AM Consult Order PROSTHETIC S REQUEST - FLOW SHOES AND INSERTS [id number] [facility] Social History: Smoking Status (Most current) and Tobacco Use (All prior to encounter date) This section includes the most current, and the historical, smoking and tobacco- related health factors from the [place] facility where the Encounter took place. Current Smoking Status This section includes the most current smoking, or tobacco-related health factor, from the [place] facility where the Encounter took place. Date/Time Current Smoking Status Comment Facil ity Oct 23, 2023 10:00 AM [place]-TOBACCO NEVER USED [facility] Tobacco Use History This section includes a history of the smoking, or tobacco-related health factors, that were collected on or before the date of the Encounter. The data comes from the [place] facility where the Encounter took place. Date/Time Smoking Status/Tobacco Use Comment F acility Oct 29, 2022 10:00 AM [place]-TOBACCO NEVER USED [facility] Encounter Notes: All associated encounter notes This section contains the clinical notes associated to the Encounter. Date/Time Encounter Note(s) Provider Source Sep 30, 2024 08:49 AM CHIROPRACTIC NOTE: LOCAL TITLE: CHIROPRACTIC FOLLOW UP NOTE PB STANDARD TITLE: CHIROPRACTIC NOTE DATE OF NOTE: SEP 30, 2024@08:49 ENTRY DATE: SEP 30, 2024@08:49:20 AUTHOR: JYOTSNA ROMANO COSIGNER: URGENCY: STATUS: COMPLETED CHIROPRACTIC FOLLOW-UP VISIT Patient's language preference for health information: Kyrgyz Other Communication Methods Needed: SUBJECTIVE: The Pitt[place] is a 39 year old MALE being seen in the Chiropractic clinic for follow-up visit. The [place] describes his neck and back as killing him, partially due to the ongoing knee issues. Today, the rates his pain level as [...] restricted in all planes of motion. The [place] experience pain with the restricted AROM. LUMBAR/THORACIC SPINE: MOVEMENT/POSTURE: The [place] ambulates without issue. SEGMENTAL DYSFUNCTION: Joint dysfunction [...] exercise program and to commit to a [place] [facility] exercise plan. /adrián/ [facility] Signed: 09/30/2024 08:56 JYOTSNA ROMANO
[2024-10-23 22:05] VITALS: BP 139/84; PULSE 63; RESP 16; TEMP 36.5; O2SAT 98; BMI 31.1
--- OUTSIDE RECORDS SUMMARY | 2024-10-23 22:10 | XMS_ITS | Continuity of Care Document ---
Author Name [facility] Organization [facility] Care Team Providers Care Shipper Receiver Name Role Phone [facility] Unavailable Unavailable Problems Combined list of problems from Department of Defense and Veterans Affairs facilities. It does not include entries that were removed or entered in error. 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 [place] [facility] Chronic sinusitis Active Condition [place] [facility] Derangement of lateral meniscus Active Condition Jul 04, 2023 Entered By: DAVON ERNST MMY Comment: right knee [place] [facility] Hypotestosteronism Active Condition [place] [facility] Insomnia ([facility] [id number]) Active Condition [place] [facility] Low Back Pain ([facility] [id number]) Active Condition [place] [facility] Neck Pain ([facility] [id number]) Active Condition [place] [facility] Obstructive sleep apnea Active Condition Mar 13, 2022 Entered By: DAVON ERNST MMY Comment: CPAP 6-16cm [place] [facility] Osteoarthritis of right knee joint Active Condition [place] [facility] Posttraumatic stress disorder Active Condition [facility] Restless legs syndrome Active Condition [place] [facility] Steatosis of liver Active Condition [place] [facility] Vitamin D deficiency Active Condition [place] [facility] Diagnosis: ICD-10-CM M99.01 Segmental and somatic dysfunction of cervical region Active Diagnosis [facility] Diagnosis: ICD-10-CM M54.2 Cervicalgia Active Diagnosis [facility] Diagnosis: ICD-10-CM F43.10 Post-traumatic stress disorder, unspecified Active Diagnosis [facility] Diagnosis: ICD-10-CM Z00.01 Encounter for general adult medical exam w abnormal findings Active Diagnosis [facility] Diagnosis: ICD-10-CM J32.9 Chronic sinusitis, unspecified Active Diagnosis [place] [facility] Diagnosis: ICD-10-CM M25.561 Pain in right knee Active Diagnosis [facility] Diagnosis: ICD-10-CM H52.223 Regular astigmatism, bilateral Active Diagnosis [place] [facility] Diagnosis: ICD-10-CM R79.89 Other specified abnormal findings of blood chemistry Active Diagnosis [facility] Diagnosis: ICD-10-CM E29.1 Testicular hypofunction Active Diagnosis [place] [facility] Diagnosis: ICD-10-CM R89.1 Abnormal level of hormones in specimens from oth org/tiss Active Diagnosis [facility] Diagnosis: ICD-10-CM S61.211D Laceration w/o fb of l idx fngr w/o damage to nail, subs Active Diagnosis [facility] Diagnosis: ICD-10-CM L03.90 Cellulitis, unspecified Active Diagnosis [place] [facility] Diagnosis: ICD-10-CM J34.89 Other specified disorders of nose and nasal sinuses Active Diagnosis [place] [facility] Diagnosis: ICD-10-CM Z11.1 Encounter for screening for respiratory tuberculosis Active Diagnosis [facility] Diagnosis: ICD-10-CM M17.11 Unilateral primary osteoarthritis, right knee Active Diagnosis [facility] Medications Combined list of outpatient medications from Department of Defense and Veterans Affairs facilities.Medications provided include 1) outpatient medications from the last 15 months, and 2) patient-reported medications. Medication Details Route Status Patient Instructions Prescription Expires Prescription Number Last Dispense Date Ordering Provider Order Date Order Qty Source AMITRIPTYLI NE HCL 25MG TAB TAKE ONE TABLET BY MOUTH AT BEDTIME DIRECTED FOR SLEEP TAKE ONE-HALF TO ONE TABLET AT BEDTIME NEEDED. ORAL ACTIVE 05/29/2025 [id number] 5 ERICK ANGELO R 2024 30 [facility] AMITRIPTYLI [facility] HCL 25MG TAB TAKE ONE TABLET BY MOUTH AT BEDTIME DIRECTED FOR SLEEP TAKE ONE-HALF TO ONE TABLET AT BEDTIME NEEDED . ORAL DISCONT INUED 02/21/2025 [id number] 5 ERICK ANGELO R 2023 30 [facility] AMITRIPTYLI NE HCL 25MG TAB TAKE ONE TABLET BY MOUTH AT BEDTIME DIRECTED FOR SLEEP TAKE ONE-HALF TO ONE TABLET AT BEDTIME NEEDED . ORAL DISCONT INUED 11/21/2024 [id number] 4 ERICK ANGELO R 2023 30 [facility] CETIRIZINE HCL 10MG TAB TAKE ONE TABLET BY MOUTH ONCE A DAY FOR ALLERGY SYMPTOMS ORAL ACTIVE 07/31/2025 [id number] 5 BUZZBebo OHN Q 2024 90 [facility] CHOLECALCIF JERRY 50MCG (2,000UNIT) TAB TAKE TWO TABLETS BY MOUTH ONCE A DAY FOR VITAMIN D DEFICIEN CY. ORAL 05/09/2024 [id number] 4 RENA ERNST 2023 200 [facility] DICLOFENAC NA 1% GEL,TOP APPLY 2 GM TO AFFECTED AREA(S) THREE TIMES A DAY NEEDED FOR PAIN NO MORE THAN 16 GM/DAY TO ANY LOWER EXTREMIT Y JOINT. NO MORE THAN 8 GM/DAY TO ANY UPPER EXTREMIT Y JOINT. MAX 32GM/DAY OVER ALL JOINTS.( MEASURE DOSE WITH RULER INSIDE BOX) TOPICA L ACTIVE 08/13/2025 [id number] 5 SHAN MULLEN R 2024 100 [facility] ESCITALOPRA M OXALATE 20MG TAB TAKE ONE-HALF TABLET BY MOUTH ONCE A DAY FOR DEPRESSI ON DOSE DECREASE ORAL SUSPEND ED 05/29/2025 [id number] 5 ERICK ANGELO R 2024 45 [facility] ESCITALOPRA M OXALATE 20MG TAB TAKE ONE-HALF TABLET BY MOUTH ONCE A DAY FOR DEPRESSI ON DOSE DECREASE ORAL DISCONT INUED 02/21/2025 [id number] 5 ERICK ANGELO 2024 45 [facility] ESCITALOPRA M OXALATE 20MG TAB TAKE ONE-HALF TABLET BY MOUTH ONCE A DAY FOR DEPRESSI ON DOSE DECREASE ORAL DISCONT INUED 08/21/2024 [id number] 4 ERICK ANGELO 2023 45 [facility] ETODOLAC 200MG CAP TAKE ONE CAPSULE BY MOUTH TWICE A DAY FOR PAIN (TAKE WITH FOOD) MAY ADD TYLENOL ORAL ACTIVE 08/13/2025 [id number] 5 SHAN MULLEN 2024 180 [facility] FLUTICASONE PROPIONATE 50MCG/SPRAY SOLN,NASAL, 16GM INSTILL ONE TO TWO IN NOSTRIL( S) TWICE A DAY (MUST BE USED DIRECTED FOR MINIMUM OF 21 DAYS TO PROVIDE ADEQUATE BENEFITS ) NASAL SUSPEND ED 07/31/2025 [id number] 5 LATOYA CUNNINGHAM 2024 3 [place] [facility] FLUTICASONE PROPIONATE 50MCG/SPRAY SOLN,NASAL, 16GM USE 1-2 SPRAYS IN NOSTRIL( S) TWICE A DAY DIRECTED . USE WITH PATANSE (OLOPATA DINE). (MUST BE USED DIRECTED FOR MINIMUM OF 21 DAYS TO PROVIDE ADEQUATE BENEFITS ). NASAL DISCONT INUED 01/20/2025 [id number] 4 LATOYA CUNNINGHAM 2023 3 [place] [facility] HYDROXYZINE HCL 25MG TAB TAKE ONE TABLET BY MOUTH THREE TIMES A DAY NEEDED FOR ANXIETY *MAY CAUSE DROWSINE SS* ORAL ACTIVE 05/29/2025 [id number] 5 ERICK ANGELO [address] [place] [address] [facility] HYDROXYZINE HCL 25MG TAB TAKE ONE TABLET BY MOUTH THREE TIMES A DAY NEEDED FOR ANXIETY *MAY CAUSE DROWSINE SS* ORAL DISCONT INUED 02/21/2025 [id number] 4 ERICK ANGELO [address] [place] [address] [facility] HYDROXYZINE HCL 25MG TAB TAKE ONE TABLET BY MOUTH THREE TIMES A DAY NEEDED FOR ANXIETY *MAY CAUSE DROWSINE SS* ORAL DISCONT INUED 02/21/2025 [id number] 4 ERICK ANGELO [address] [place] [address] [facility] LIDOCAINE 5% OINT,TOP APPLY LIGHTLY TO AFFECTED AREA(S) TWICE A DAY TOPICA L 05/09/2024 [id number] 4 RENA ERNST 2023 35 [facility] MELATONIN 5MG CAP/TAB TAKE TWO CAP/TAB BY MOUTH AT BEDTIME FOR SLEEP ORAL DISCONT INUED BY PROVIDE R 08/21/2024 [id number] 4 ERICK ANGELO R 2023 180 [facility] MELOXICAM 15MG TAB TAKE ONE TABLET BY MOUTH ONCE A DAY FOR OSTEOART HRITIS ORAL 05/09/2024 [id number] 4 RENA ERNST 2023 90 [facility] OLOPATADINE HCL 0.7% SOLN,OPH INSTILL 1 DROP IN BOTH EYES ONCE A DAY FOR ALLERGIE S OPHTHA LMIC 07/19/2024 [id number] 4 LATOYA CUNNINGHAM R 2023 2.5 [place] [facility] OLOPATADINE HCL 665MCG/SPRA Y SOLN,NASAL SPRAY USE ONE TO TWO SPRAYS INTO EACH NOSTRIL TWICE A DAY NASAL SUSPEND ED 07/31/2025 [id number] 5 LATOYA CUNNINGHAM R 2024 1 [place] [facility] OLOPATADINE HCL 665MCG/SPRA Y SOLN,NASAL SPRAY USE 1-2 SPRAYS INTO NOSTRIL( S) TWICE A DAY DIRECTED . USE WITH FLONASE. NASAL DISCONT INUED 01/20/2025 [id number] 5 LATOYA CUNNINGHAM R 2023 1 [place] [facility] OLOPATADINE HCL 665MCG/SPRA Y SOLN,NASAL SPRAY USE 1 PUFF INTO EACH NOSTRIL TWICE A DAY FOR ALLERGIC RHINITIS USE WITH FLUTICAS ONE SPRAY DIRECTED NASAL DISCONT INUED 07/19/2024 [id number] 4 LATOYA CUNNINGHAM R 2023 1 [place] [facility] ROPINIROLE HCL 2MG TAB TAKE ONE TABLET BY MOUTH AT BEDTIME FOR RESTLESS LEG SYNDROME ORAL DISCONT INUED (EDIT) 12/31/2024 [id number] 4 [facility] 2023 90 [facility] ROPINIROLE HCL 2MG TAB TAKE ONE TABLET BY MOUTH AT BEDTIME FOR RESTLESS LEG SYNDROME TAKE ONE-HALF TABLET FOR FIRST 3 NIGHTS ORAL DISCONT INUED 05/09/2024 [id number] 4 [facility] [address] [place] [address] [facility] ROPINIROLE HCL 4MG TAB TAKE ONE TABLET BY MOUTH AT BEDTIME FOR RESTLESS LEG SYNDROME ORAL ACTIVE 01/06/2025 [id number] 5 [facility] [address] [place] [address] [facility] SINUS RINSE NEILMED PKT USE 1 PACKET NOSTRIL( S) ONCE A DAY FOR NASAL CONGESTI ON NASAL ACTIVE 10/23/2024 [id number] 5 [facility] [address] [place], [place] [address]OC SINUS RINSE NEILMED REGULAR KIT USE 1 KIT NOSTRIL( S) ONCE A DAY FOR NASAL CONGESTI ON NASAL 01/21/2024 [id number] 4 [facility] [address] [place] [address] [facility] TESTOSTERON E 1.62% 20.25MG/PUM P GEL,TOP APPLY 2 PUMPS (40.5MG) TO AFFECTED AREA(S) ONCE A DAY FOR LOW TESTOSTE BOLA APPLY TO CLEAN DRY SKIN OF UPPER ARMS OR UPPER SHOULDER ONLY TOPICA L SUSPEND ED 02/12/2025 [id number] 5 SHAN MULLEN [address] [place] [address] [facility] TESTOSTERON E 1.62% 20.25MG/PUM P GEL,TOP APPLY 2 PUMPS (40.5MG) TO AFFECTED AREA(S) ONCE A DAY FOR LOW TESTOSTE BOLA APPLY TO CLEAN DRY SKIN OF UPPER ARMS OR UPPER SHOULDER ONLY TOPICA L 05/10/2024 [id number] 4 [facility] [address] [place] [address] [facility]OC Immunizations Combined list of available immunizations from the Department of Defense and Veterans Affairs facilities. Immunization Series Date Given Administered By Site Reaction Lot Number CVX Code Drug Industrial Engineering Status Comments Source TDAP 2021 115 complet ed [place] [facility] Results Combined list of recent chemistry, hematology and other laboratory results from Department of Defense and Veterans Affairs, ranging from 15 months to all on record, depending upon the facility. Order Name Results Value Reference Range Date Interpretation Specimen Comments Source B12 COBALAMIN (VITAMIN B12) [MASS/VOLUME] IN SERUM OR PLASMA 761 pg/mL 213 - 816 08/13 Specimen Type: SERUM No comment entered. Ordering Provider: SHAN MULLEN Report Released Date/Time : Aug 11, 2024 10:10 AM Reporting Lab: [place] [facility] [address] [place] [address] Performin g Lab: [place] [facility] [address] [place] [address] [facility] FOLATE (PB) FOLATE [MASS/VOLUME] IN SERUM OR PLASMA 12.3 ng/mL 7 - 20 08/13 Specimen Type: SERUM No comment entered. Ordering Provider: SHAN MULLEN Report Released Date/Time : Aug 11, 2024 10:10 AM Reporting Lab: [place] [facility] [address] [place] [address] Performin g Lab: [place] [facility] [address] [place] [address] [facility] HGA1C HEMOGLOBIN A1C/HEMOGLOBI N.TOTAL IN BLOOD 5.2 4.0 - 6.0 08/13 Specimen Type: BLOOD No comment entered. Ordering Provider: SHAN MULLEN Report Released Date/Time : Aug 11, 2024 10:10 AM Reporting Lab: [place] [facility] [address] [place] [address] Performin g Lab: [place] [facility] [address] [place] [address] [facility] MAGNESIUM MAGNESIUM [MASS/VOLUME] IN SERUM OR PLASMA 2.32 mg/dL 1.6 - 2.6 08/13 Specimen Type: PLASMA No comment entered. Ordering Provider: SHAN MULLEN Report Released Date/Time : Aug 11, 2024 10:10 AM Reporting Lab: [place] [facility] [address] [place] [address] Performin g Lab: [place] [facility] [address] [place] [address] [facility] CHOLESTEROL PANEL (PB) CHOLESTEROL [MASS/VOLUME] IN SERUM OR PLASMA 138 mg/dL 0 - 200 08/13 Specimen Type: PLASMA No comment entered. Ordering Provider: SHAN MULLEN Report Released Date/Time : Aug 11, 2024 10:10 AM Reporting Lab: [place] [facility] [address] [place] [address] Performin g Lab: [place] [facility] [address] [place] [address] [facility] CHOLESTEROL PANEL (PB) TRIGLYCERIDE [MASS/VOLUME] IN SERUM OR PLASMA 72 mg/dL 0 - 150 08/13 Specimen Type: PLASMA No comment entered. Ordering Provider: SHAN MULLEN Report Released Date/Time : Aug 11, 2024 10:10 AM Reporting Lab: [place] [facility] [address] [place] [address] Performin g Lab: [place] [facility] [address] [place] [address] [facility] CHOLESTEROL PANEL (PB) CHOLESTEROL IN LDL [MASS/VOLUME] IN SERUM OR PLASMA BY CALCULATION 88.3 mg/dL 08/13 Specimen Type: PLASMA No comment entered. Ordering Provider: SHAN MULLEN Report Released Date/Time : Aug 11, 2024 10:10 AM Reporting Lab: [place] [facility] [address] [place] [address] Performin g Lab: [place] [facility] [address] [place] [address] [facility] CHOLESTEROL PANEL (PB) CHOLESTEROL IN HDL [MASS/VOLUME] IN SERUM OR PLASMA 35.3 mg/dL 40 08/13 L Specimen Type: PLASMA No comment entered. Ordering Provider: SHAN MULLEN Report Released Date/Time : Aug 11, 2024 10:10 AM Reporting Lab: [place] [facility] [address] [place] [address] Performin g Lab: [place] [facility] [address] [place] [address] [facility] CHOLESTEROL PANEL (PB) CHOLESTEROL IN HDL/CHOLESTER OL.TOTAL [MASS RATIO] IN SERUM OR PLASMA 25.6 25 08/13 Specimen Type: PLASMA No comment entered. Ordering Provider: SHAN MULLEN Report Released Date/Time : Aug 11, 2024 10:10 AM Reporting Lab: [place] [facility] [address] [place] [address] Performin g Lab: [place] [facility] [address] [place] [address] [facility] VITAMIN D, 25-HYDROXY 25-HYDROXYVIT JI D3 [MASS/VOLUME] IN SERUM OR PLASMA 40.8 ng/mL 30 - 96 08/13 Specimen Type: SERUM No comment entered. Ordering Provider: SHAN MULLEN Report Released Date/Time : Aug 11, 2024 10:10 AM Reporting Lab: [place] [facility] [address] [place] [address] Performin g Lab: [place] [facility] [address] [place] [address] [facility] TSH (MA-PB) THYROTROPIN [UNITS/VOLUME ] IN SERUM OR PLASMA 2.309 u[IU]/ mL 0.47 - 5 08/13 Specimen Type: SERUM No comment entered. Ordering Provider: SHAN MULLEN Report Released Date/Time : Aug 11, 2024 10:10 AM Reporting Lab: [place] [facility] [address] [place] [address] Performin g Lab: [place] [facility] [address] [place] [address] [facility] TESTOSTERON E, TOTAL (PB-MA) TESTOSTERONE [MASS/VOLUME] IN SERUM OR PLASMA 174 ng/dL 221.0 - 871.0 08/13 L Specimen Type: SERUM No comment entered. Ordering Provider: SHAN MULLEN Report Released Date/Time : Aug 12, 2024 01:35 PM Reporting Lab: [place] [facility] [address] [place] [address] Performin g Lab: [place] [facility] [address] [place] [address] [facility] CBC LEUKOCYTES [#/VOLUME] IN BLOOD BY AUTOMATED COUNT 5.2 10*3/u L 3.6 - 11.2 08/13 Specimen Type: BLOOD No comment entered. Ordering Provider: SHAN MULLEN Report Released Date/Time : Aug 11, 2024 10:10 AM Reporting Lab: [place] [facility] [address] [place] [address] Performin g Lab: [place] [facility] [address] [place] [address] [facility] CBC ERYTHROCYTES [#/VOLUME] IN BLOOD BY AUTOMATED COUNT 5.25 10*6/u L 4.10 - 5.70 08/13 Specimen Type: BLOOD No comment entered. Ordering Provider: SHAN MULLEN Report Released Date/Time : Aug 11, 2024 10:10 AM Reporting Lab: [place] [facility] [address] [place] [address] Performin g Lab: [place] [facility] [address] [place] [address] [facility] CBC HEMOGLOBIN [MASS/VOLUME] IN BLOOD 16.0 g/dL 13.1 - 16.8 08/13 Specimen Type: BLOOD No comment entered. Ordering Provider: SHAN MULLEN Report Released Date/Time : Aug 11, 2024 10:10 AM Reporting Lab: [place] [facility] [address] [place] [address] Performin g Lab: [place] [facility] [address] [place] [address] [facility] CBC HEMATOCRIT [VOLUME FRACTION] OF BLOOD 45.9 38.2 - 48.4 08/13 Specimen Type: BLOOD No comment entered. Ordering Provider: SHAN MULLEN Report Released Date/Time : Aug 11, 2024 10:10 AM Reporting Lab: [place] [facility] [address] [place] [address] Performin g Lab: [place] [facility] [address] [place] [address] [facility] CBC MCV [ENTITIC VOLUME] BY AUTOMATED COUNT 87.4 fL 80.0 - 100.0 08/13 Specimen Type: BLOOD No comment entered. Ordering Provider: SHAN MULLEN Report Released Date/Time : Aug 11, 2024 10:10 AM Reporting Lab: [place] [facility] [address] [place] [address] Performin g Lab: [place] [facility] [address] [place] [address] [facility] CBC MCH [ENTITIC MASS] BY AUTOMATED COUNT 30.5 pg 27.0 - 34.0 08/13 Specimen Type: BLOOD No comment entered. Ordering Provider: SHAN MULLEN Report Released Date/Time : Aug 11, 2024 10:10 AM Reporting Lab: [place] [facility] [address] [place] [address] Performin g Lab: [place] [facility] [address] [place] [address] [facility] CBC MCHC [MASS/VOLUME] BY AUTOMATED COUNT 34.9 g/dL 33.0 - 36.0 08/13 Specimen Type: BLOOD No comment entered. Ordering Provider: SHAN MULLEN Report Released Date/Time : Aug 11, 2024 10:10 AM Reporting Lab: [place] [facility] [address] [place] [address] Performin g Lab: [place] [facility] [address] [place] [address] [facility] CBC PLATELETS [#/VOLUME] IN BLOOD BY AUTOMATED COUNT 188 10*3/u L 150 - 400 08/13 Specimen Type: BLOOD No comment entered. Ordering Provider: SHAN MULLEN Report Released Date/Time : Aug 11, 2024 10:10 AM Reporting Lab: [place] [facility] [address] [place] [address] Performin g Lab: [place] [facility] [address] [place] [address] [facility] CBC PLATELET MEAN VOLUME [ENTITIC VOLUME] IN BLOOD BY AUTOMATED COUNT 11.5 fL 7.5 - 11.2 08/13 H Specimen Type: BLOOD No comment entered. Ordering Provider: SHAN MULLEN Report Released Date/Time : Aug 11, 2024 10:10 AM Reporting Lab: [place] [facility] [address] [place] [address] Performin g Lab: [place] [facility] [address] [place] [address] [facility] CBC ERYTHROCYTE DISTRIBUTION WIDTH [RATIO] BY AUTOMATED COUNT 11.8 11.8 - 15.1 08/13 Specimen Type: BLOOD No comment entered. Ordering Provider: SHAN MULLEN Report Released Date/Time : Aug 11, 2024 10:10 AM Reporting Lab: [place] [facility] [address] [place] [address] Performin g Lab: [place] [facility] [address] [place] [address] [facility] CBC LYMPHOCYTES/1 00 LEUKOCYTES IN BLOOD BY AUTOMATED COUNT 25.4 08/13 Specimen Type: BLOOD No comment entered. Ordering Provider: SHAN MLULEN Report Released Date/Time : Aug 11, 2024 10:10 AM Reporting Lab: [place] [facility] [address] [place] [address] Performin g Lab: [place] [facility] [address] [place] [address] [facility] CBC MONOCYTES/100 LEUKOCYTES IN BLOOD BY AUTOMATED COUNT 13.5 08/13 Specimen Type: BLOOD No comment entered. Ordering Provider: SHAN MULLEN Report Released Date/Time : Aug 11, 2024 10:10 AM Reporting Lab: [place] [facility] [address] [place] [address] Performin g Lab: [place] [facility] [address] [place] [address] [facility] CBC NEUTROPHILS/1 00 LEUKOCYTES IN BLOOD BY AUTOMATED COUNT 56.4 08/13 Specimen Type: BLOOD No comment entered. Ordering Provider: SHAN MULLEN Report Released Date/Time : Aug 11, 2024 10:10 AM Reporting Lab: [place] [facility] [address] [place] [address] Performin g Lab: [place] [facility] [address] [place] [address] [facility] CBC EOSINOPHILS/1 00 LEUKOCYTES IN BLOOD BY AUTOMATED COUNT 3.5 08/13 Specimen Type: BLOOD No comment entered. Ordering Provider: SHAN MULLEN Report Released Date/Time : Aug 11, 2024 10:10 AM Reporting Lab: [place] [facility] [address] [place] [address] Performin g Lab: [place] [facility] [address] [place] [address] [facility] CBC BASOPHILS/100 LEUKOCYTES IN BLOOD BY AUTOMATED COUNT 1.0 08/13 Specimen Type: BLOOD No comment entered. Ordering Provider: SHAN MULLEN Report Released Date/Time : Aug 11, 2024 10:10 AM Reporting Lab: [place] [facility] [address] [place] [address] Performin g Lab: [place] [facility] [address] [place] [address] [facility] CBC LYMPHOCYTES [#/VOLUME] IN BLOOD BY AUTOMATED COUNT 1.32 10*3/u L 0.77 - 4.50 08/13 Specimen Type: BLOOD No comment entered. Ordering Provider: SHAN MULLEN Report Released Date/Time : Aug 11, 2024 10:10 AM Reporting Lab: [place] [facility] [address] [place] [address] Per[facility] g Lab: [place] [facility] [address] [place] [address] [facility] CBC MONOCYTES [#/VOLUME] IN BLOOD BY AUTOMATED COUNT 0.70 10*3/u L 0.19 - 0.8 08/13 Specimen Type: BLOOD No comment entered. Ordering Provider: SHAN MULLEN Report Released Date/Time : Aug 11, 2024 10:10 AM Reporting Lab: [place] [facility] [address] [place] [address] Performin g Lab: [place] [facility] [address] [place] [address] [facility] CBC NEUTROPHILS [#/VOLUME] IN BLOOD BY AUTOMATED COUNT 2.94 10*3/u L 2.10 - 8.00 08/13 Specimen Type: BLOOD No comment entered. Ordering Provider: SHAN MULLEN Report Released Date/Time : Aug 11, 2024 10:10 AM Reporting Lab: [place] [facility] [address] [place] [address] Performin g Lab: [place] [facility] [address] [place] [address] [facility] CBC EOSINOPHILS [#/VOLUME] IN BLOOD BY AUTOMATED COUNT 0.18 10*3/u L 0.00 - 0.60 08/13 Specimen Type: BLOOD No comment entered. Ordering Provider: SHAN MULLEN Report Released Date/Time : Aug 11, 2024 10:10 AM Reporting Lab: [place] [facility] [facility] [address] [place] [address] Per[place] g Lab: [place] [facility] [address] [place] [address] [facility] CBC BASOPHILS [#/VOLUME] IN BLOOD BY AUTOMATED COUNT 0.05 10*3/u L 0.00 - 0.20 08/13 Specimen Type: BLOOD No comment entered. Ordering Provider: SHAN MULLEN Report Released Date/Time : Aug 11, 2024 10:10 AM Reporting Lab: [place] [facility] [address] [place] [address] [facility]: [place] [facility] [address] [place] [address] [facility] CBC IMMATURE GRANULOCYTES/ 100 LEUKOCYTES IN BLOOD BY AUTOMATED COUNT 0.2 08/13 Specimen Type: BLOOD No comment entered. Ordering Provider: SHAN MULLEN Report Released Date/Time : Aug 11, 2024 10:10 AM Reporting Lab: [place] [facility] [address] [place] [address] Performin [facility]: [place] [facility] [address] [place] [address] [facility] CBC IMMATURE GRANULOCYTES [#/VOLUME] IN BLOOD BY AUTOMATED COUNT 0.01 10*3/u L 0.00 - 0.05 08/13 Specimen Type: BLOOD No comment entered. Ordering Provider: SHAN MULLEN Report Released Date/Time : Aug 11, 2024 10:10 AM Reporting Lab: [place] [facility] [address] [place] [address] 8 [facility]: [place] [facility] [address] [place] [address] [facility] COMPREHENSI VE METABOLIC PANEL CREATININE [MASS/VOLUME] IN SERUM OR PLASMA 1.06 mg/dL 0.7 - 1.3 08/13 Specimen Type: PLASMA No comment entered. Ordering Provider: SHAN MULLEN Report Released Date/Time : Aug 11, 2024 10:10 AM Reporting Lab: [place] [facility] [address] [place] [address] 8 [facility]: [place] [facility] [address] [place] [address] [facility] COMPREHENSI VE METABOLIC PANEL UREA NITROGEN [MASS/VOLUME] IN SERUM OR PLASMA 11 mg/dL 9 - 25 08/13 Specimen Type: PLASMA No comment entered. Ordering Provider: SHAN MULLEN Report Released Date/Time : Aug 11, 2024 10:10 AM Reporting Lab: [place] [facility] [address] [place] [address] 8 Performin g Lab: [place] [facility] [address] [place] [address] [facility] COMPREHENSI VE METABOLIC PANEL GLUCOSE [MASS/VOLUME] IN SERUM OR PLASMA 89 mg/dL 72 - 99 08/13 Specimen Type: PLASMA No comment entered. Ordering Provider: SHAN MULLEN Report Released Date/Time : Aug 11, 2024 10:10 AM Reporting Lab: [place] [facility] [address] [place] [address] 8 Performin g [facility]: [place] [facility] [address] [place] [address] 8 [place] [facility] COMPREHENSI VE METABOLIC PANEL SODIUM [MOLES/VOLUME ] IN SERUM OR PLASMA 142 meq/L 136 - 145 08/13 Specimen Type: PLASMA No comment entered. Ordering Provider: SHAN MULLEN Report Released Date/Time : Aug 11, 2024 10:10 AM Reporting Lab: [place] [facility] [address] [place] [address] Performin g [facility]: [place] [facility] [address] [place] [address] 8 [facility] [facility] COMPREHENSI VE METABOLIC PANEL POTASSIUM [MOLES/VOLUME ] IN SERUM OR PLASMA 3.7 meq/L 3.5 - 5 08/13 Specimen Type: PLASMA No comment entered. Ordering Provider: SHAN MULLEN Report Released Date/Time : Aug 11, 2024 10:10 AM Reporting Lab: [place] [facility] [address] [place] [address] 8 Performin g [facility]: [place] [facility] [address] [place] [address] [facility] COMPREHENSI VE METABOLIC PANEL CHLORIDE [MOLES/VOLUME ] IN SERUM OR PLASMA 107 meq/L 98 - 107 08/13 Specimen Type: PLASMA No comment entered. Ordering Provider: SHAN MULLEN Report Released Date/Time : Aug 11, 2024 10:10 AM Reporting Lab: [place] [facility] [address] [place] [address] 8 [facility]formin [facility]: [place] [facility] [address] [place] [address] 8 [place] [facility] COMPREHENSI VE METABOLIC PANEL CARBON DIOXIDE, TOTAL [MOLES/VOLUME ] IN SERUM OR PLASMA 25 meq/L 22 - 31 08/13 Specimen Type: PLASMA No comment entered. Ordering Provider: SHAN MULLEN Report Released Date/Time : Aug 11, 2024 10:10 AM Reporting Lab: [place] [facility] [address] [place] [address] [facility]formin [facility]: [place] [facility] [address] [place] [address] [facility] COMPREHENSI VE METABOLIC PANEL CALCIUM [MASS/VOLUME] IN SERUM OR PLASMA 8.9 mg/dL 8.4 - 10.4 08/13 Specimen Type: PLASMA No comment entered. Ordering Provider: SHAN MULLEN Report Released Date/Time : Aug 11, 2024 10:10 AM Reporting Lab: [place] [facility] [address] [place] [address] [facility]formin g [facility]: [place] [facility] [address] [place] [address] 8 [facility] COMPREHENSI VE METABOLIC PANEL PROTEIN [MASS/VOLUME] IN SERUM OR PLASMA 7.6 g/dL 6 - 8.6 08/13 Specimen Type: PLASMA No comment entered. Ordering Provider: SHAN MULLEN Report Released Date/Time : Aug 11, 2024 10:10 AM Reporting Lab: [place] [facility] [address] [place] [address] 8 Performin g [facility]: [place] [facility] [address] [place] [address] [facility] COMPREHENSI VE METABOLIC PANEL ALBUMIN [MASS/VOLUME] IN SERUM OR PLASMA 4.8 g/dL 3.4 - 5 08/13 Specimen Type: PLASMA No comment entered. Ordering Provider: SHAN MULLEN Report Released Date/Time : Aug 11, 2024 10:10 AM Reporting Lab: [place] [facility] [address] [place] [address] [facility]formin [facility]: [place] [facility] [address] [place] [address] [facility] COMPREHENSI VE METABOLIC PANEL BILIRUBIN.TOT AL [MASS/VOLUME] IN SERUM OR PLASMA 0.6 mg/dL 0.2 - 1.2 08/13 Specimen Type: PLASMA No comment entered. Ordering Provider: SHAN MULLEN Report Released Date/Time : Aug 11, 2024 10:10 AM Reporting Lab: [place] [facility] [address] [place] [address] [facility]formin [facility]: [place] [facility] [address] [place] [address] [facility] COMPREHENSI VE METABOLIC PANEL ALKALINE PHOSPHATASE [ENZYMATIC ACTIVITY/VOLU ME] IN SERUM OR PLASMA 84 U/L 40 - 150 08/13 Specimen Type: PLASMA No comment entered. Ordering Provider: SHAN MULLEN Report Released Date/Time : Aug 11, 2024 10:10 AM Reporting Lab: [place] [facility] [address] [place] [address] Performin [facility]: [place] [facility] [address] [place] [address] [facility] COMPREHENSI VE METABOLIC PANEL ASPARTATE AMINOTRANSFER ASE [ENZYMATIC ACTIVITY/VOLU ME] IN SERUM OR PLASMA 46 U/L 5 - 34 08/13 H Specimen Type: PLASMA No comment entered. Ordering Provider: SHAN MULLEN Report Released Date/Time : Aug 11, 2024 10:10 AM Reporting Lab: [place] [facility] [address] [place] [address] Performin [facility]: [place] [facility] [address] [place] [address] [facility] COMPREHENSI VE METABOLIC PANEL ALANINE AMINOTRANSFER ASE [ENZYMATIC ACTIVITY/VOLU ME] IN SERUM OR PLASMA 75 U/L 8 - 40 08/13 H Specimen Type: PLASMA No comment entered. Ordering Provider: SHAN MULLNE Report Released Date/Time : Aug 11, 2024 10:10 AM Reporting Lab: [place] [facility] [address] [place] [address] Performin [facility]: [place] [facility] [address] [place] [address] [facility] COMPREHENSI VE METABOLIC PANEL GLOMERULAR FILTRATION RATE/1.73 SQ M.PREDICTED [VOLUME RATE/AREA] IN SERUM, PLASMA OR BLOOD BY CREATININE-BA SED FORMULA (CKD-EPI 2020) 93 08/13 Specimen Type: PLASMA No comment entered. Ordering Provider: SHAN MULLEN Report Released Date/Time : Aug 11, 2024 10:10 AM Reporting Lab: [place] [facility] [address] [place] [address] Performin g Lab: [place] [facility] [address] [place] [address] [facility] [place] [facility] Vital Signs Combined list of inpatient and outpatient Vital Signs from Department of Defense and Veterans Affairs, ranging from 12 months to all on record, depending upon the facility. Vital Sign Value Date Comments Source SYSTOLIC BLOOD PRESSURE 128 08/27/2024 11:00:00 [place] [facility] DIASTOLIC BLOOD PRESSURE 91 08/27/2024 11:00:00 [place] [facility] TEMPERATURE 98.1 08/27/2024 11:00:00 [place] [facility] PULSE 73 08/27/2024 11:00:00 [place] [facility] SYSTOLIC BLOOD PRESSURE 118 08/12/2024 12:51:52 [place] [facility] DIASTOLIC BLOOD PRESSURE 68 08/12/2024 12:51:52 [place] [facility] WEIGHT 251.6 08/12/2024 12:51:52 [place] [facility] BMI 34 kg/m2 08/12/2024 12:51:52 [place] [facility] TEMPERATURE 98.3 08/12/2024 12:51:52 [place] [facility] PULSE 88 08/12/2024 12:51:52 [place] [facility] RESPIRATION 18 08/12/2024 12:51:52 [place] [facility] SYSTOLIC BLOOD PRESSURE 117 07/15/2024 13:00:00 [place] [facility] DIASTOLIC BLOOD PRESSURE 82 07/15/2024 13:00:00 [place] [facility] TEMPERATURE 97.6 07/15/2024 13:00:00 [place] [facility] PULSE 67 07/15/2024 13:00:00 [place] [facility] SYSTOLIC BLOOD PRESSURE 140 06/25/2024 09:20:00 [place] [facility] DIASTOLIC BLOOD PRESSURE 91 06/25/2024 09:20:00 [facility] TEMPERATURE 98.1 06/25/2024 09:20:00 [facility] PULSE 80 06/25/2024 09:20:00 [facility] SYSTOLIC BLOOD PRESSURE 137 06/04/2024 08:20:00 [facility] DIASTOLIC BLOOD PRESSURE 89 06/04/2024 08:20:00 [facility] TEMPERATURE 97.3 06/04/2024 08:20:00 [facility] PULSE 92 06/04/2024 08:20:00 [facility] Encounters Combined list of: 1) Encounters from Department of Veterans Affairs facilities going backup to the last 18 months, not all VA inpatient encounters are included; 2) Encounters from the Department of Defense facilities going backup to 280 months. Location Location Details Encounter Type Encounter Number Reason For Visit Attending Provider ADM Date DC Date Status Disposition Source [facility] Outpatient Encounter [id number] 05/07 [facility] REGIONS [id number] Diagnos is: ICD-10- CM M99.01 Segment al and somatic dysfunc tion of cervica l region [facility] EST MOD 30 MIN [id number] Diagnos is: ICD-10- CM M17.11 Unilate ral primary osteoar thritis , right knee Tim [facility]NST TI 05[facility]09 [facility] OFF/OP EST AUGUST X REQ PHY/QHP [id number] Diagnos is: ICD-10- CM Z11.1 Encount er for screeni ng for respira tory tubercu ESME Urbina 05/27 [facility] OFF/OP EST AUGUST X REQ PHY/QHP [id number] Diagnos is: ICD-10- CM Z11.1 Encount er for screeni ng for respira tory tubercu ESME Urbina R 05/29 [facility]4 REGIONS [id number] Diagnos is: ICD-10- CM M99.01 Segment al and somatic dysfunc tion of cervica l region PILLO ROMANO E 05/29 [facility] Outpatient Encounter [id number] 06/13 [facility]4 REGIONS [id number] [id number] Diagnos is: ICD-10- CM M99.01 Segment al and somatic dysfunc tion of cervica l region PILLO ROMANO E 06/19 [facility] Outpatient Encounter [id number] 07/08 [facility] 3[facility]4 REGIONS [id number] [id number] Diagnos is: ICD-10- CM M99.01 Segment al and somatic dysfunc tion of cervica l region PILLO ROMANO 07/09 [facility] OFFICE O/P EST LOW 20 MIN [id number] [id number] Diagnos is: ICD-10- CM F43.10 Post-tr aumatic stress disorde r, unspeci TU Reyes 07/09 [facility] Outpatient Encounter [id number] 07/14 [facility] En[facility] [id number] 07/18 [facility] [place] [facility] QNHP OL DIG ASSMT&MGMT 5-10 [id number] [id number] Diagnos is: ICD-10- CM J34.89 Other specifi ed disorde rs of nose and nasal sinuses NICK HERNANDEZ V 07/18 [place] [facility] Outpatient Encounter [id number] DEB GARCIA N 07/29 [facility] 3[facility]4 REGIONS [id number] Diagnos is: ICD-10- CM M99.01 Segment al and somatic dysfunc tion of cervica l region PILLO ROMANO E 07/30 [facility] Outpatient Encounter [id number] 08/18 [facility] 3[facility]4 REGIONS [id number] [id number] Diagnos is: ICD-10- CM M99.01 Segment al and somatic dysfunc tion of cervica l region PILLO ROMANO 08/20 [facility] OFFICE O/P EST LOW 20 MIN [id number] Diagnos is: ICD-10- CM F43.10 Post-tr aumatic stress disorde r, unspeci fied TU ANGELO 08/20 [facility] [place] [facility] Outpatient Encounter [id number] 09/02 [place] [facility] [place] [facility] Outpatient Encounter [id number] CRISTO MOSS 09/02 [place] [facility] [place] [facility] OFFICE O/P EST SF 10 MIN [id number] [id number] Diagnos is: ICD-10- CM L03.90 Celluli tis, unspeci PORTER Cartwright A 09/02 [place] [facility] [place] [facility] Outpatient Encounter [id number] 09/16 [place] [facility] Outpatient Encounter [id number] 09/17 [facility] Outpatient Encounter [id number] 09/17 [facility] OFF/OP EST AUGUST X REQ PHY/QHP [id number] [id number] Diagnos is: ICD-10- CM S61.211 D Lacerat ion w/o fb of l idx fngr w/o damage to nail, subs WENDY,ESME ANDREY R 09/23 [facility] Outpatient Encounter [id number] 09/25 [facility] Outpatient Encounter [id number] 09/26 [facility] Outpatient Encounter [id number] 10/07 [facility] OFFICE O/P EST MOD 30 MIN [id number] [id number] Diagnos is: ICD-10- CM R89.1 Abnorma l level of hormone s in specime ns from oth org/tis s Tim ERNST 10/22 [facility] Outpatient Encounter [id number] [id number] 10/22 [facility] N [place] [facility] QNHP OL DIG ASSMT&MGMT 5-10 [id number] [id number] Diagnos is: ICD-10- CM 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 V 10/22 [place] [facility] Outpatient Encounter [id number] 11/06 [facility] N [facility] Outpatient Encounter [id number] 11/06 [facility] 3[facility]4 REGIONS [id number] Diagnos is: ICD-10- CM M99.01 Segment al and somatic dysfunc tion of cervica l region PILLO ROMANO E 11/12 [facility] HC PRO PHONE CALL 5-10 MIN [id number] Diagnos is: ICD-10- CM R79.89 Other specifi ed abnorma l finding s of blood chemist food ESME Ramos 11/17 [facility] Outpatient Encounter [id number] 11/19 [facility] OFFICE O/P EST MOD 30 MIN [id number] [id number] Diagnos is: ICD-10- CM F43.10 Post-tr aumatic stress disorde r, unspeci fiTU Slater R 11/20 [facility] [place] [facility] COMPRE OPH EXAM NEW PT 1/> [id number] [id number] Diagnos is: ICD-10- CM 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, bilater al BRADSHAW,GINA LA S 11/24 [place] [facility] [place] [facility] Outpatient Encounter [id number] [id number] 11/25 [place] [facility] Outpatient Encounter [id number] ESME NGUYEN R 11/26 [facility] Outpatient Encounter [id number] ESME NGUYEN R 11/26 [facility] 3[facility]4 REGIONS [id number] [id number] Diagnos is: ICD-10- CM M99.01 Segment al and somatic dysfunc tion of cervica l region P[place] ROMANO VIVIANA E 12/03 [facility] THERAPEUTI C EXERCISES [id number] [id number] Diagnos is: ICD-10- CM M25.561 Pain in right knee MARBIN WOLFE A 12/10 [facility] Outpatient Encounter [id number] 12/23 [facility] 3[facility]4 REGIONS [id number] [id number] Diagnos is: ICD-10- CM M99.01 Segment al and somatic dysfunc tion of cervica l region PILLO ROMANO E 12/24 [facility] Outpatient Encounter [id number] 12/25 [facility] Outpatient Encounter [id number] 12/30 [facility] 3[facility]4 REGIONS [id number] [id number] Diagnos is: ICD-10- CM M99.01 Segment al and somatic dysfunc tion of cervica l region PILLO ROMANO E 01/13 [facility] Outpatient Encounter [id number] [id number] 01/19 [facility] [place] [facility] QNHP OL DIG ASSMT&MGMT 5-10 [id number] [id number] Diagnos is: ICD-10- CM J32.9 Chronic sinusit is, unspeci marine HERNANDEZNICK V 01/19 [place] [facility] Outpatient Encounter [id number] 01/19 [facility] [place] [facility] Outpatient Encounter [id number] [id number] 01/20 [place] [facility] REGIONS [id number] [id number] Diagnos is: ICD-10- CM M99.01 Segment al and somatic dysfunc tion of cervica l region PILLO ROMANO 02/04 [facility] THERAPEUTI C EXERCISES [id number] [id number] Diagnos is: ICD-10- CM M25.561 Pain in right knee MARBIN WOLFE A 02/04 [facility] Outpatient Encounter [id number] 02/19 [facility] OFFICE O/P EST LOW 20 MIN [id number] [id number] Diagnos is: ICD-10- CM F43.10 Post-tr aumatic stress disorde r, unspeci TU Reyes 02/20 [facility] [id number] Diagnos is: ICD-10- CM M99.01 Segment al and somatic dysfunc tion of cervica l region PILLO ROMANO 02/26 [facility] 3-4 REGIONS [id number] Diagnos is: ICD-10- CM M99.01 Segment al and somatic dysfunc tion of cervica l region PILLO ROMANO E 03/12 [facility] Outpatient Encounter [id number] 03/25 [facility] PSYCH DIAGNOSTIC EVALUATION [id number] [id number] Diagnos is: ICD-10- CM F43.10 Post-tr aumatic stress disorde r, unspeci fied FRANCINE FRANCO IN D 04/08 [facility] Outpatient Encounter [id number] FRANCINE FRANCO IN D 04/13 [facility] 3[facility]4 REGIONS [id number] [id number] Diagnos is: ICD-10- CM M99.01 Segment al and somatic dysfunc tion of cervica l region PILLO ROMANO 04/23 [facility] Outpatient Encounter [id number] 05/12 [facility] [id number] [id number] Diagnos is: ICD-10- CM M99.01 Segment al and somatic dysfunc tion of cervica l region PILLO ROMANO 05/14 [facility] Outpatient Encounter [id number] GERALD NUNEZ 05/27 [facility] OFFICE O/P EST MOD 30 MIN [id number] Diagnos is: ICD-10- CM F43.10 Post-tr aumatic stress disorde r, unspeci fied TU ANGELO R 05/28 [facility] [id number] [id number] Diagnos is: ICD-10- CM M99.01 Segment al and somatic dysfunc tion of cervica l region PILLO ROMANO E 06/04 [facility] PSYTX W PT 60 MINUTES [id number] [id number] Diagnos is: ICD-10- CM F43.10 Post-tr aumatic stress disorde r, unspeci fied DAVIDHARMEET MCKEON P 06/04 [facility] Outpatient Encounter [id number] 06/22 [facility] Outpatient Encounter [id number] 06/23 [facility] 3-4 REGIONS [id number] [id number] Diagnos is: ICD-10- CM M99.01 Segment al and somatic dysfunc tion of cervica l region PILLO ROMANO E 06/25 [facility]IR[facility]CT MANJ 3-4 REGIONS [id number] Diagnos is: ICD-10- CM M99.01 Segment al and somatic dysfunc tion of cervica l region PILLO ROMANO E 07/15 [facility] Outpatient Encounter [id number] 07/22 [facility] Outpatient Encounter [id number] 07/30 [facility] [place] [facility] MTMS BY PHARM COUNTER PERSON 15 MIN [id number] [id number] Diagnos is: ICD-10- CM J32.9 Chronic sinusit is, unspeci NICK Wood V 07/30 [place] [facility] [place] [facility] MTMS BY PHARM COUNTER PERSON 15 MIN 14128-8.65 [id number] Diagnos is: ICD-10- CM J32.9 Chronic sinusit is, unspeci NICK Wood V 07/31 [place] [facility] FEE [id number] [id number] Diagnos is: ICD-10- CM Z00.01 Encount er for general adult medical exam w abnorma l finding s CUSTRED,TO RRI J 08/12 [facility] SYNCH AUDIO-[place] 40 [id number] [id number] 384 Diagnos is: ICD-10- CM Z00.01 Encount er for general adult medical exam w abnorma l finding s [facility]OMAIRA MULLEN [facility] [id number] [id number] Diagnos is: ICD-10- CM F43.10 Post-tr aumatic stress disorde r, unspeci HARMEET Ferguson P 08/14 [facility] Outpatient Encounter [id number] 08/21 [facility] Outpatient Encounter [id number] 08/21 [facility] Outpatient Encounter [id number] 08/24 [facility] En[facility] [id number] 08/27 [facility] MANJ 3-4 REGIONS [id number] [id number] Diagnos is: ICD-10- CM M99.01 Segment al and somatic dysfunc tion of cervica l region PILLO ROMANO E 08/27 [facility] THERAPEUTI C EXERCISES 25301-6.65 [id number] Diagnos is: ICD-10- CM M54.2 Cervica lgia MARBIN WOLFE A 08/28 [facility] [place] [facility] Outpatient Encounter [id number] 09/03 [facility] En[facility] [id number] 09/23 [facility] En[facility] [id number] 09/24 [facility]-4 REGIONS 26301-2.65 [id number] Diagnos is: ICD-10- CM M99.01 Segment al and somatic dysfunc tion of cervica l region PILLO ROMANO 09/30 [facility] Outpatient Encounter [id number] 10/05 [facility] En[facility] [id number] 10[facility] Social History Combined list of available smoking, tobacco, and other social history from Department of Defense and Veterans Affairs facilities. Social History Type Response Date Comment [facility] e Tobacco smoking status NHIS VA-TOBACCO NEVER USED 10/23/2023 [facility] History of tobacco use VA-TOBACCO NEVER USED 10/29/2022 [facility] History of tobacco use GA-TOBACCO NEVER USED 10/17/2021 JASSON ORDONEZ [facility] This section is an empty social history section. [facility] Plan of Care List of future care activities from Department of Veterans Affairs facilities. Additional future care activities may be listed in the Assessment and Plan section. Date/Time Care Activity Care Activity Detail Facili ty 10/29/2024 AMBULATORY - PSYCHIATRY AMBULATORY - [facility]
--- NOTE | 2024-10-23 22:29 | XRR_ITS ---
PROCEDURE INFORMATION: Exam: XR Right Wrist Exam date and time: 10/23/2024 10:39 PM Age: 39 years old Clinical indication: Injury or trauma; Fall; Blunt trauma (contusions or hematomas); Right; Fell onto RT wrist playing kickball. C/O diffuse pain with reduced rom. TECHNIQUE: Imaging protocol: Radiologic exam of the right wrist. Views: 3 or more views. COMPARISON: No relevant prior studies available. FINDINGS: Bones/joints: No acute displaced fracture or dislocation. Soft tissues: Normal. XR/XR wrist RT min 3V* [id number] IMPRESSION: No acute displaced fracture or dislocation.
--- NOTE | 2024-10-23 22:29 | W.ED.EXTPRO ---
HPI - Extremity Problem General: Chief complaint: Extremity Injury, Upper Stated complaint: Fell on R wrist Time Seen by Provider: 10/23/24 22:29 History of Present Illness: 39-year-old male patient presents to the emergency department with right wrist pain. Patient states he fell landing on his right wrist and had pain and wanted to make sure that it was not broken patient denies hitting his head patient denies any loss of consciousness patient denies any other trauma or injury. Related Data Home Medications ?Medication ?Instructions ?Recorded ?Confirmed cholecalciferol (vitamin D3) 50 50 mcg PO DAILY 01/22/22 09/30/24 mcg (2,000 unit) capsule diclofenac sodium 1 % topical gel 4 g topical QID 01/22/22 09/30/24 (Arthritis Pain (diclofenac)) ibuprofen 800 mg tablet (IBU) 800 mg PO Q8H 01/22/22 09/30/24 lidocaine 5 % topical ointment 1 applic topical BID 01/22/22 09/30/24 methyl salicylate 15 %-menthol 10 1 applic topical QID PRN 01/22/22 09/30/24 % topical cream trazodone 100 mg tablet 100 mg PO DAILY 01/22/22 09/30/24 Previous Rx's ?Medication ?Instructions ?Recorded Night Splint #1 ea 01/22/22 ibuprofen 800 mg tablet 800 mg PO Q8H PRN pain #20 tabs 08/23/22 Custom Molded Sport Low Profile #1 ea 09/30/24 Orthotics 3/4 Length Allergies Allergy/AdvReac Type Severity Reaction Status Date / Time No Known Allergies Allergy Verified 10/23/24 22:10 Review of Systems General: Reports: 10 or more systems reviewed and unremarkable except in HPI and below PFSH ED PFSH: Medical History No pertinent family history Surgical History No pertinent past surgical history Social History Smoking and tobacco/nicotine status: never used tobacco/nicotine Physical Exam Const: COMMON NORMALS: patient oriented x3 HENMT: COMMON NORMALS: normocephalic and atraumatic HEAD & SCALP: normocephalic and atraumatic Resp: COMMON NORMALS: normal respiratory effort Extremity: RIGHT UPPER EXTREMITY: Yes wrist (Normal inspection no obvious deformity patient is neurovascularly intact pa) Neuro: COMMON NORMALS: patient oriented x3 Course Vital Signs: Vital signs: Vital Signs Temperature 97.7 F 10/23/24 22:05 Pulse Rate 88 10/23/24 23:24 Respiratory Rate 16 10/23/24 23:24 Blood Pressure 133/76 10/23/24 23:24 Pulse Oximetry 98 10/23/24 23:24 Oxygen Delivery Me thod Room Air 10/23/24 23:24 MDM - Extremity (Nontraumatic) Medical Decision Making 39-year-old male patient presents to the emergency department with right wrist pain. Patient states he fell landing on his right wrist and had pain and wanted to make sure that it was not broken patient denies hitting his head patient denies any loss of consciousness patient denies any other trauma or injury. There is no fracture or dislocation noted on x-ray. Patient is neurovascularly intact will Aramis wrap and have patient follow-up with primary care physician with no improvement. I did review home care instructions with patient as well as return precautions Lab Data Radiology Impressions Wrist X-Ray 10/23/24 22:29 IMPRESSION: No acute displaced fracture or dislocation. All radiology interpretation(s) finalized by discharge Discharge Plan Discharge Patient Disposition: Home Clinical Impression: Sprain and strain of wrist Condition: Stable Prescriptions: No Action cholecalciferol (vitamin D3) 50 mcg (2,000 unit) capsule 50 mcg PO DAILY diclofenac sodium [Arthritis Pain (diclofenac)] 1 % gel 4 g topical QID Rx Instructions: apply to single knee, ankle, foot; for foot includes sole/toes/top of foot ibuprofen [IBU] 800 mg tablet 800 mg PO Q8H lidocaine 5 % ointment 1 applic topical BID methyl salicylate-menthol 15-10 % cream 1 applic topical QID PRN trazodone 100 mg tablet 100 mg PO DAILY (DME) Night Splint See Rx Instructions .Route .MEDSUPPLY Qty: 1 0RF Rx Instructions: As directed (DME) Custom Molded Sport Low Profile Orthotics 3/4 Length See Rx Instructions .Route .MEDSUPPLY Qty: 1 0RF Rx Instructions: As directed [facility] [place] Patients ibuprofen 800 mg tablet 800 mg PO Q8H PRN (Reason: pain) Qty: 20 0RF Discharge Orders: Discharge ED (Routine); Ordered 10/23/24 Ordered By: Bety Samuel Discharge Diet: Advance as tolerated Discharge Activity: Increase activity as tolerated Patient Instructions: Opioid Safety, Pain Management, Patient Portal & Fili Instructions, Wrist Sprain (ED) Activity Restrictions/Additional Instructions: Wear splint for comfort May take Tylenol or Motrin per label directions for pain follow-up with primary care physician if no improvement return to the emergency department with any worsening of symptoms Print Language: German Coding Level of Care Code ED System Safety Manager for Duran Zambrano
[2024-10-23 23:24] VITALS: BP 133/76; PULSE 88; RESP 16; O2SAT 98
[2024-10-24 00:24] VITALS: BP 107/69; PULSE 88; RESP 16; O2SAT 99
== END 2024-10-24 00:25 | disposition home or self-care (01) ==
PROVIDERS: Emergency Provider Registered Nurse
DX: S63.501A Unspecified sprain of right wrist, initial encounter (principal); W19.XXXA Unspecified fall, initial encounter
CPT/HCPCS: 73110; 99283